=== PATIENT | male | born 1955 | race Caucasian/White ===

== ENCOUNTER 2017-07-17 10:27 | Emergency (ER) | payer OTHER ==
[~2017-07-17] VITALS: Ht 167.6 cm; Wt 99.7 kg
[2017-07-17 10:30] VITALS: TEMP 36.6; Ht 167.6 cm; Wt 99.7 kg
[2017-07-17] MEDS ORDERED: SODIUM CHLORIDE 0.9% 1000ML 1,000 ML IV STA (10:45)
[2017-07-17 11:11] VITALS: O2SAT 96
[2017-07-17 11:15] LABS: BASO % 0.3 %; BASO ABS # 0.02 K/uL (0-0.2); COMPLETE YES; EOS % 2.3 %; IG% 0.1 %; LYMPH % 16.7 %; LYMPH ABS # 1.15 K/uL (1.2-3.4); MEAN CELL VOLUME 80.8 fL (80-100); MEAN CORPUSCULAR HEMOGLOBIN 26.9 pg (25-34); MEAN CORPUSCULAR HGB CONC 33.3 g/dl (32-36); MEAN PLATELET VOLUME 9.4 fL (7.4-10.4); MONO % 3.9 %; NEUT % 76.7 %; PLATELET COUNT 256 K/uL (130-400); RED BLOOD COUNT 4.95 M/uL (4.7-6.1); WHITE BLOOD COUNT 6.87 K/uL (4.8-10.8)
[2017-07-17] MEDS ORDERED: MELO15TA4 PO (11:20)
[2017-07-17] MEDS ORDERED: LISI-788 PO (11:20)
[2017-07-17] MEDS ORDERED: TRAM-10 PO (11:20)
[2017-07-17] MEDS ORDERED: NAPR1CAP12 PO (11:20)
[2017-07-17] MEDS ORDERED: ACET-1256 PO (11:20)
[2017-07-17 11:34] LABS: ALT/SGPT 21 U/L (12-78); AST/SGOT 21 U/L (15-37); BLOOD UREA NITROGEN 14 mg/dl (7-18); BUN/CREATININE RATIO 16.5 (10-20); CALCIUM 9.3 mg/dl (8.5-10.1); CARBON DIOXIDE 27 mmol/L (21-32); CHLORIDE 105 mmol/L (98-107); CREATININE 0.84 mg/dl (0.60-1.40); GLUCOSE 94 mg/dl (70-99); POTASSIUM 3.8 mmol/L (3.5-5.1); SODIUM 139 mmol/L (136-145)
[2017-07-17 11:36] LABS: ALKALINE PHOSPHATASE 80 U/L (45-117)
[2017-07-17 12:01] LABS: PARTIAL THROMBOPLASTIN RATIO 1.1; PROTHROMBIN TIME (PATIENT) 10.4 SECONDS (9.0-12.0)
--- NOTE | 2017-07-17 12:48 | EMERGENCY ROOM VISIT NOTE ---
History Report prepared by Herminia: Anya Loera Under the Supervision of: Dr. Romeo Mcginnis M.D. First contact with patient: 10:43 Chief Complaint: RECTAL BLEEDING Stated Complaint: BLEEDING FROM RECTUM Nursing Triage Summary: pt had 1 episode of bloody BM 1/2 cup this am around 9 and then had another BM this upon arrival to the ED that was normal pt states that maybe it was a hemmroid and states he has a hx of hemmroids no sob no dizziness History of Present Illness The patient is a 62 year old white male with a past medical history of hypertension who presents to the ED with a cc of rectal bleeding beginning this morning. The patient was doing some heavy lifting at work. He felt like he needed to pass gas and when he did he states that it felt "wet." He went to the bathroom and saw that there was blood in his underwear. He then had a bowel movement and noticed right red blood with clots in his stool. Negative fevers, chills, urinary symptoms, recent trauma. The patient had a colonoscopy 3 years ago that was normal. He does not take any aspirin or blood thinners. He recently started taking Mobic 15mg daily. Source of History: patient Onset: this morning Position: other (rectum) Quality: other (bleeding) Timing: intermittent Modifying Factors (Worsening): defecation Associated Symptoms: No fevers, No chills, No urinary symptoms Note: Pt denies recent trauma. Review of Systems See HPI for pertinent positives and negatives. A total of ten systems were reviewed and were otherwise negative. Past Medical & Surgical Medical Problems: (1) Hypertension (2) Kidney stones Surgical Problems: (1) History of cholecystectomy Family History Cancer Diabetes mellitus Heart disease Hypertension Social History Smoking Status: Never Smoker Smokeless Tobacco Use: No Alcohol Use: none Drug Use: none Marital Status: Housing Status: lives with significant other Occupation Status: employed Current/Historical Medications Scheduled Acetaminophen (Tylenol), 1,000 MG PO QAM Lisinopril/Hctz (Zestoretic 20MG/25MG), 1 TAB PO DAILY Meloxicam (Mobic), 15 MG PO DAILY Naproxen Sodium (Aleve), 440 MG PO QAM Scheduled PRN Tramadol (Ultram), 50 MG PO Q4H PRN for Pain Allergies Coded Allergies: BEE STING (Unverified Allergy, Unknown, ., 07/17/17) Ibuprofen (Unverified Allergy, Unknown, ., 07/17/17) Physical Exam Vital Signs Date Time Temp Pulse Resp B/P (MAP) Pulse Ox O2 Delivery O2 Flow Rate FiO2 07/17/17 13:54 67 18 172/94 96 07/17/17 12:26 65 18 148/81 95 Room Air 07/17/17 11:13 69 07/17/17 11:11 96 Room Air 07/17/17 10:30 36.6 76 16 211/85 98 Room Air Physical Exam GENERAL: Awake, alert, well-appearing, NAD HENT: Normocephalic, atraumatic. EYES: Normal conjunctiva. Sclera non-icteric. NECK: Supple. No nuchal rigidity. FROM. RESPIRATORY: CTAB, no rhonchi, wheezing, crackles CARDIAC: RRR, no MRG ABDOMEN: Soft, NTND, BS+ RECTAL: External hemorrhoid, single bleeding hemorrhoid noted. NEHEMIAH performed. Prostate normal, no masses. MSK: No chest wall TTP, no LE edema NEURO: GCS 15, CN 2-12 intact, moves all 4s on command SKIN: No rash or jaundice noted. Medical Decision & Procedures Laboratory Results 07/17/17 11:05 Red Blood Count 4.95, Mean Corpuscular Volume 80.8, Mean Corpuscular Hemoglobin 26.9, Mean Corpuscular Hemoglobin Concent 33.3, Mean Platelet Volume 9.4, Neutrophils (%) (Auto) 76.7, Lymphocytes (%) (Auto) 16.7, Monocytes (%) (Auto) 3.9, Eosinophils (%) (Auto) 2.3, Basophils (%) (Auto) 0.3, Neutrophils # (Auto) 5.26, Lymphocytes # (Auto) 1.15, Monocytes # (Auto) 0.27, Eosinophils # (Auto) 0.16, Basophils # (Auto) 0.02 07/17/17 11:05 Test 07/17/17 11:05 07/17/17 11:35 White Blood Count 6.87 K/uL (4.8-10.8) Red Blood Count 4.95 M/uL (4.7-6.1) Hemoglobin 13.3 g/dL (14.0-18.0) Hematocrit 40.0 % (42-52) Mean Corpuscular Volume 80.8 fL (80-100) Mean Corpuscular Hemoglobin 26.9 pg (25-34) Mean Corpuscular Hemoglobin Concent 33.3 g/dl (32-36) Platelet Count 256 K/uL (130-400) Mean Platelet Volume 9.4 fL (7.4-10.4) Neutrophils (%) (Auto) 76.7 % Lymphocytes (%) (Auto) 16.7 % Monocytes (%) (Auto) 3.9 % Eosinophils (%) (Auto) 2.3 % Basophils (%) (Auto) 0.3 % Neutrophils # (Auto) 5.26 K/uL (1.4-6.5) Lymphocytes # (Auto) 1.15 K/uL (1.2-3.4) Monocytes # (Auto) 0.27 K/uL (0.11-0.59) Eosinophils # (Auto) 0.16 K/uL (0-0.5) Basophils # (Auto) 0.02 K/uL (0-0.2) RDW Standard Deviation 40.2 fL (36.4-46.3) RDW Coefficient of Variation 13.6 % (11.5-14.5) Immature Granulocyte % (Auto) 0.1 % Immature Granulocyte # (Auto) 0.01 K/uL (0.00-0.02) Anion Gap 7.0 mmol/L (3-11) Est Creatinine Clear Calc Drug Dose 103.4 ml/min Estimated GFR () 110.3 Estimated GFR (Non- 95.2 BUN/Creatinine Ratio 16.5 (10-20) Calcium Level 9.3 mg/dl (8.5-10.1) Total Bilirubin 0.3 mg/dl (0.2-1) Direct Bilirubin < 0.1 mg/dl (0-0.2) Aspartate Amino Transf (AST/SGOT) 21 U/L (15-37) Alanine Aminotransferase (ALT/SGPT) 21 U/L (12-78) Alkaline Phosphatase 80 U/L (45-117) Total Protein 8.0 gm/dl (6.4-8.2) Albumin 3.7 gm/dl (3.4-5.0) Lipase 103 U/L (73-393) Prothrombin Time 10.4 SECONDS (9.0-12.0) Prothromb Time International Ratio 1.0 (0.9-1.1) Activated Partial Thromboplast Time 29.8 SECONDS (21.0-31.0) Partial Thromboplastin Ratio 1.1 Laboratory results reviewed by me. Medications Administered Medications (Trade) Dose Ordered Sig/Krystyna Route Start Time Stop Time Status Last Admin Dose Admin Sodium Chloride 1,000 ml @ 999 mls/hr Q1H1M STAT IV 07/17/17 10:45 07/17/17 11:45 DC 07/17/17 11:11 999 MLS/HR ECG Indication: other Rate (beats per minute): 77 Rhythm: sinus with SA Findings: RBBB, T-wave inversion (lead 3), other (wide QRS) ED Course 1043: The patient was evaluated in room C9. A complete history and physical exam was performed. 1045: NSS 1000 ml @ 999 mls/hr IV 1253: I reevaluated the patient and he is trying to have a bowel movement. 1314: I performed a rectal examination at this time. I discussed the results and treatment plan with the patient. I answered all pertaining questions that he had. He expressed understanding and verbalized agreement. The patient will be discharged home. Medical Decision The patient is a 62 year old white male with a past medical history of hypertension who presents to the ED with a cc of rectal bleeding beginning this morning. Differential diagnosis: Etiologies such as diverticulosis, AVM, coagulopathy, colitis, inflammatory bowel disease, malignancy, Amada-Quiros tear, esophagitis, peptic ulcer disease , variceal bleed, gastritis, epistaxis, fissure, hemorrhoids, as well as others were entertained. Patient was seen and evaluated the bedside. Patient was concerned as he had a small clot passed or is most recent bowel movement. Patient denies any infectious symptoms. No history of prior ulcerative colitis or Crohn's. Patient does have a family history of colon cancer. Patient did have colonoscopy 3 years prior that was negative. Patient does not have any abdominal pain. Patient did have lab work that was completed. Patient's hemoglobin 13, normal correlation studies, normal platelet count. Upon further question patient does take Mobic daily. Patient was told refrain from doing this at this time. Patient did have an external bleeding hemorrhoid, no pain to palpation. NEHEMIAH completed. Mild blood present, no masses. Patient given f/u w/ GI and given trx for home. Patient told to return if SOB, high heart rate, etc. Given f/u, d/c, and return precautions d/c'ed to home. Medication Reconcilliation Current Medication List: was personally reviewed by me Blood Pressure Screening Patient's blood pressure: Elevated blood pressure Blood pressure disposition: Referred to PCP Impression Primary Impression: Rectal bleed Scribe Attestation The scribe's documentation has been prepared under my direction and personally reviewed by me in its entirety. I confirm that the note above accurately reflects all work, treatment, procedures, and medical decision making performed by me. Departure Information Dispostion Home / Self-Care Referrals Derian Guevara M.D. (PCP) Forms HOME CARE DOCUMENTATION FORM, IMPORTANT VISIT INFORMATION, WORK / SCHOOL INSTRUCTIONS Patient Instructions My [facility] Additional Instructions Please return to the emergency department if you have worsening or recurrent symptoms not amenable to at-home treatment. Please call for a follow-up appointment with her primary care physician. Please take your medications as prescribed. If you have other concerns and/or complaints please feel free to also call your primary care physician's office or return the ED for further evaluation, management, and treatment. You may take tylenol 1000mg every 6 hours as needed for pain. You have been examined and treated today on an emergency basis only. This is not a substitute for, or an effort to provide, complete comprehensive medical care. It is impossible to recognize and treat all injuries or illnesses in a single emergency department visit. It is therefore important that you follow up closely with [facility]. Call as soon as possible for an appointment. Thank you for your time and consideration. I look forward to speaking with you again soon. Please don't hesitate to call us if you have any questions. Topical ointments that include analgesics, such as mixed hydrocortisone/ lidocaine, are effective for relieving acute pain associated with hemorrhoids. Sitz baths Sitz baths are an intuitive topical treatment for acute flare-ups of hemorrhoids to reduce inflammation and edema and relax the sphincter muscles. Patients with significant hemorrhoid disease tend to have elevated sphincter tone. Manometric studies have confirmed that application of moist heat to the perianal area can lower the internal sphincter and anal canal pressures [31]. Sitz baths can relieve irritation and pruritus as well as spasm of the anal sphincter muscles. They should be used with warm, rather than cold, water two to three times per day [32]. A commercially available portable bowl allows for use at the workplace. Consider high fiber diet. Avoid straining when having a bowel movement.
[2017-07-17 13:54] VITALS: BP 172/94; PULSE 67; O2SAT 96
== END 2017-07-17 13:56 | disposition home or self-care (01) ==
LOC: C.EDB 10:29 → C.EDC 13:56
DX: K62.5 Hemorrhage of anus and rectum (principal); I10 Essential (primary) hypertension; Z87.442 Personal history of urinary calculi; Z80.9 Family history of malignant neoplasm, unspecified; Z83.3 Family history of diabetes mellitus; Z82.49 Family history of ischemic heart disease and other diseases of the circulatory system; Z79.899 Other long term (current) drug therapy

== ENCOUNTER 2017-07-19 08:54 | Inpatient (IN) | payer OTHER ==
[~2017-07-19] VITALS: Ht 168.9 cm; Wt 95.9 kg
[~2017-07-19 08:54] MED LIST: ACET-1256 PO; LISI-788 PO; MELO15TA4 PO; NAPR1CAP12 PO; TRAM-10 PO
[2017-07-19] MEDS ORDERED: SODIUM CHLORIDE 0.9% 1000ML 1,000 ML IV STA ×2 (09:17→10:44)
[2017-07-19 09:39] LABS: ISTAT CREATININE 0.8 mg/dl (0.6-1.3); ISTAT HEMOGLOBIN 14.6 g/dl (14.0-18.0); ISTAT IONIZED CALCIUM 1.19 mmol/l (1.12-1.32)
[2017-07-19 09:41] LABS: BASO % 0.2 %; BASO ABS # 0.03 K/uL (0-0.2); COMPLETE YES; EOS % 0.1 %; HEMATOCRIT 39.4 % (42-52); IG% 0.2 %; LYMPH % 10.1 %; LYMPH ABS # 1.44 K/uL (1.2-3.4); MEAN CELL VOLUME 80.2 fL (80-100); MEAN CORPUSCULAR HEMOGLOBIN 26.5 pg (25-34); MEAN PLATELET VOLUME 10.2 fL (7.4-10.4); MONO % 4.4 %; PLATELET COUNT 367 K/uL (130-400); RED BLOOD COUNT 4.91 M/uL (4.7-6.1); WHITE BLOOD COUNT 14.23 K/uL (4.8-10.8)
--- NOTE | 2017-07-19 09:41 | EMERGENCY ROOM VISIT NOTE ---
ED Visit Note First contact with patient: 09:00 I have seen and examined this patient with Tiffany Garay and generally agree with the treatment plan as discussed. Problem List Medical Problems: (1) Hypertension Status: Chronic (2) Kidney stones Status: Chronic Surgical Problems: (1) History of cholecystectomy Status: Resolved Current/Historical Medications Scheduled Lisinopril/Hctz (Zestoretic 20MG/25MG), 1 TAB PO DAILY Scheduled PRN Acetaminophen (Tylenol), 1,000 MG PO QAM PRN for Mild Pain Naproxen Sodium (Aleve), 440 MG PO QAM PRN for Mild Pain Tramadol (Ultram), 50 MG PO Q4H PRN for Pain Allergies Coded Allergies: BEE STING (Unverified Allergy, Unknown, ., 07/19/17) Ibuprofen (Unverified Allergy, Unknown, ., 07/19/17) Vital Signs Date Time Temp Pulse Resp B/P (MAP) Pulse Ox O2 Delivery O2 Flow Rate FiO2 07/19/17 09:30 80 18 65/38 98 Nasal Cannula 2.0 07/19/17 09:24 92 22 97 Nasal Cannula 2.0 07/19/17 09:18 95 20 81/48 98 Nasal Cannula 2.0 07/19/17 09:16 93 20 70/40 99 Room Air 07/19/17 09:15 95 07/19/17 09:06 36.6 109 20 140/73 97 Room Air 07/19/17 09:02 125 20 140/73 96 Room Air Laboratory Results Test 07/19/17 08:30 07/19/17 09:25 Bedside Hemoglobin 14.6 g/dl (14.0-18.0) Bedside Hematocrit 43 % (42-52) Bedside Sodium 143 mEq/L (135-144) Bedside Potassium 3.2 mEq/L (3.3-5.0) Bedside Chloride 103 mEq/L (101-112) Bedside Total CO2 26 mEq/l (24-31) Anion Gap 18.0 mmol/L (16-25) Bedside Blood Urea Nitrogen 14 mg/dl (7-18) Bedside Creatinine 0.8 mg/dl (0.6-1.3) Bedside Glucose (other) 125 mg/dl (70-99) Bedside Ionized Calcium (Eloina) 1.19 mmol/l (1.12-1.32) Medications Administered Medications (Trade) Dose Ordered Sig/Krystyna Route Start Time Stop Time Status Last Admin Dose Admin Sodium Chloride 1,000 ml @ 999 mls/hr Q1H1M STAT IV 07/19/17 09:17 07/19/17 10:17 07/19/17 09:26 999 MLS/HR Departure Information Referrals Derian Guevara M.D. (PCP) Patient Instructions [facility]
[2017-07-19 09:52] LABS: PARTIAL THROMBOPLASTIN RATIO 1.1; PROTHROMBIN TIME (PATIENT) 10.3 SECONDS (9.0-12.0)
[2017-07-19] MEDS ORDERED: OPTIRAY 320 IV PRN (10:00)
--- NOTE | 2017-07-19 10:00 | EMERGENCY ROOM VISIT NOTE ---
History First contact with patient: 09:00 Chief Complaint: RECTAL BLEEDING Stated Complaint: GI ASSESSMENT Nursing Triage Summary: here two days ago for rectal bleeding, returns today, 4-5 x bloody diarrhea "just runs out" this am, diaphoretic. History of Present Illness The patient is a 62 year old male who presents to the Emergency Room with complaints of rectal bleeding. The patient was seen here 2 days ago due to some bright red blood in the stool and states he had a normal workup at that time. He has had some bleeding since then and states he had increased bleeding since this morning. He states that beginning this morning, the blood has been "running out of him." He states that he is dizzy and sweaty at this time. He denies any recent fevers, abdominal pain, nausea/vomiting, chest pain or shortness of breath. He denies any cardiac history. The patient reports he has a history of a rectal fistula which was surgically repaired in [place] over 15 years ago. He states he takes a blood pressure medication. He denies any other medical problems. Review of Systems A complete 10 point review of systems was reviewed with the patient with pertinent positives and negatives as per history of present illness. All else were negative. Past Medical/Surgical History Medical Problems: (1) Diverticulosis (2) HTN (hypertension) Surgical Problems: (1) H/O inguinal hernia repair (2) H/O sinus surgery (3) History of cholecystectomy (4) History of tonsillectomy Family History Cancer Diabetes mellitus Heart disease Hypertension Social History Smoking Status: Unknown if Ever Smoked Alcohol Use: none Drug Use: none Marital Status: Housing Status: lives with significant other Occupation Status: employed Current/Historical Medications Scheduled Acetaminophen (Tylenol), 1,000 MG PO QAM Cetirizine (Zyrtec), 10 MG PO DAILY Lisinopril/Hctz (Zestoretic 20MG/25MG), 1 TAB PO DAILY Scheduled PRN Tramadol (Ultram), 50 MG PO Q4H PRN for Pain Physical Exam Vital Signs Date Time Temp Pulse Resp B/P (MAP) Pulse Ox O2 Delivery O2 Flow Rate FiO2 07/19/17 11:31 68 110/74 07/19/17 11:02 68 112/60 07/19/17 10:46 66 109/62 100 Nasal Cannula 2.0 07/19/17 10:30 65 20 99/58 100 2.0 07/19/17 10:11 65 22 102/58 100 Nasal Cannula 2.0 07/19/17 09:30 80 18 65/38 98 Nasal Cannula 2.0 07/19/17 09:24 92 22 97 Nasal Cannula 2.0 07/19/17 09:18 95 20 81/48 98 Nasal Cannula 2.0 07/19/17 09:16 93 20 70/40 99 Room Air 07/19/17 09:15 95 07/19/17 09:06 36.6 109 20 140/73 97 Room Air 07/19/17 09:02 125 20 140/73 96 Room Air Physical Exam VITALS: Vitals are noted on the nurse's note and reviewed by myself. Vital signs stable. GENERAL: This is a 62-year-old male, pale, diaphoretic. EYES: Pupils equal round and reactive to light and accommodation. MOUTH: Mucous membranes moist. HEART: Regular rate and rhythm without murmurs gallops or rubs. LUNGS: Clear to auscultation bilaterally without wheezes, rales or rhonchi. No retractions or accessory muscle use. ABDOMEN: Soft, non-tender to palpation. NEURO: Patient was alert and oriented to person place and time. Medical Decision & Procedures ER Provider Diagnostic Interpretation: ABDOMEN AND PELVIS CTA WITH IV CONTRAST FINDINGS: A 2 cm right breast subareolar soft tissue nodule. Mild interstitial thickening at the lung bases. No pneumoperitoneum. No pneumatosis. No pneumoperitoneum. Tiny fat-containing left inguinal hernia. No suspicious lytic or blastic osseous lesions. Cholecystectomy. The spleen, adrenal glands, pancreas, left kidney are unremarkable. There are few subcentimeter hypodense lesions within the right kidney which are too small to characterize. There is a 4 mm hypodense lesion within the right hepatic lobe which is also too small to characterize. A single mildly enlarged right hilar lymph node which is partially imaged. This measures 1 cm. There is also a mildly enlarged distal paraesophageal lymph node measuring 1.4 cm. No retroperitoneal lymphadenopathy. The bladder is within normal limits. Colonic diverticulosis. There is no complaint diverticula at the proximal descending colon with surrounding fat stranding. This is consistent with acute diverticulitis. No perforation or abscess identified. Normal appendix. Normal caliber abdominal aorta with no evidence for dissection. The mesenteric and renal arteries are widely patent. Focal narrowing of approximately 50% at the origin of the celiac artery. IMPRESSION: 1. Normal abdominal aorta. No evidence for dissection or aneurysm. 2. Approximately 50% focal narrowing at the origin of the celiac artery. 3. Acute proximal descending colon diverticulitis. No evidence for perforation or abscess. 4. A 2 cm right breast subareolar nodule. This likely represents gynecomastia. However, follow-up mammogram/ultrasound at a dedicated breast care center is recommended for confirmation. 5. Mildly enlarged lymph nodes within the chest as described above. Recommend follow-up nonemergent dedicated chest CT for further evaluation. Laboratory Results 07/19/17 08:30 Red Blood Count 4.91, Mean Corpuscular Volume 80.2, Mean Corpuscular Hemoglobin 26.5, Mean Corpuscular Hemoglobin Concent 33.0, Mean Platelet Volume 10.2, Neutrophils (%) (Auto) 85.0, Lymphocytes (%) (Auto) 10.1, Monocytes (%) (Auto) 4.4, Eosinophils (%) (Auto) 0.1, Basophils (%) (Auto) 0.2, Neutrophils # (Auto) 12.09, Lymphocytes # (Auto) 1.44, Monocytes # (Auto) 0.62, Eosinophils # (Auto) 0.02, Basophils # (Auto) 0.03 07/19/17 08:30 Test 07/19/17 08:30 07/19/17 09:25 07/19/17 11:28 White Blood Count 14.23 K/uL (4.8-10.8) Red Blood Count 4.91 M/uL (4.7-6.1) Hemoglobin 13.0 g/dL (14.0-18.0) Hematocrit 39.4 % (42-52) Mean Corpuscular Volume 80.2 fL (80-100) Mean Corpuscular Hemoglobin 26.5 pg (25-34) Mean Corpuscular Hemoglobin Concent 33.0 g/dl (32-36) Platelet Count 367 K/uL (130-400) Mean Platelet Volume 10.2 fL (7.4-10.4) Neutrophils (%) (Auto) 85.0 % Lymphocytes (%) (Auto) 10.1 % Monocytes (%) (Auto) 4.4 % Eosinophils (%) (Auto) 0.1 % Basophils (%) (Auto) 0.2 % Neutrophils # (Auto) 12.09 K/uL (1.4-6.5) Lymphocytes # (Auto) 1.44 K/uL (1.2-3.4) Monocytes # (Auto) 0.62 K/uL (0.11-0.59) Eosinophils # (Auto) 0.02 K/uL (0-0.5) Basophils # (Auto) 0.03 K/uL (0-0.2) RDW Standard Deviation 40.3 fL (36.4-46.3) RDW Coefficient of Variation 13.7 % (11.5-14.5) Immature Granulocyte % (Auto) 0.2 % Immature Granulocyte # (Auto) 0.03 K/uL (0.00-0.02) Prothrombin Time 10.3 SECONDS (9.0-12.0) Prothromb Time International Ratio 1.0 (0.9-1.1) Activated Partial Thromboplast Time 28.8 SECONDS (21.0-31.0) Partial Thromboplastin Ratio 1.1 Est Creatinine Clear Calc Drug Dose 92.3 ml/min Estimated GFR () 104.4 Estimated GFR (Non- 90.1 BUN/Creatinine Ratio 14.8 (10-20) Calcium Level 9.7 mg/dl (8.5-10.1) Magnesium Level 1.8 mg/dl (1.8-2.4) Total Bilirubin 0.4 mg/dl (0.2-1) Aspartate Amino Transf (AST/SGOT) 23 U/L (15-37) Alanine Aminotransferase (ALT/SGPT) 21 U/L (12-78) Alkaline Phosphatase 82 U/L (45-117) Troponin I < 0.015 ng/ml (0-0.045) Total Protein 8.5 gm/dl (6.4-8.2) Albumin 3.9 gm/dl (3.4-5.0) Globulin 4.5 gm/dl (2.5-4.0) Albumin/Globulin Ratio 0.9 (0.9-2) Bedside Hemoglobin 14.6 g/dl (14.0-18.0) Bedside Hematocrit 43 % (42-52) Bedside Sodium 143 mEq/L (135-144) Bedside Potassium 3.2 mEq/L (3.3-5.0) Bedside Chloride 103 mEq/L (101-112) Bedside Total CO2 26 mEq/l (24-31) Anion Gap 18.0 mmol/L (16-25) Bedside Blood Urea Nitrogen 14 mg/dl (7-18) Bedside Creatinine 0.8 mg/dl (0.6-1.3) Bedside Glucose (other) 125 mg/dl (70-99) Bedside Ionized Calcium (Eloina) 1.19 mmol/l (1.12-1.32) Bedside Lactic Acid Venous 2.25 mmol/L (0.90-1.70) Medications Administered Medications (Trade) Dose Ordered Sig/Krystyna Route Start Time Stop Time Status Last Admin Dose Admin Sodium Chloride 1,000 ml @ 999 mls/hr Q1H1M STAT IV 07/19/17 09:17 07/19/17 10:17 DC 07/19/17 09:26 999 MLS/HR Sodium Chloride 1,000 ml @ 999 mls/hr Q1H1M STAT IV 07/19/17 10:44 07/19/17 11:44 DC 07/19/17 10:48 999 MLS/HR Piperacillin Sod/ Tazobactam Sod (Zosyn Iv) 4.5 gm NOW STAT IV 07/19/17 10:44 07/19/17 10:47 DC 07/19/17 12:13 4.5 GM Daptomycin 600 mg/ Sodium Chloride 62 ml @ 100 mls/hr NOW STAT IV 07/19/17 10:44 07/19/17 11:21 DC 07/19/17 11:27 100 MLS/HR ECG Rate (beats per minute): 119 Rhythm: sinus tachycardia Findings: RBBB Comparison ECG Date: rate has increased ED Course The patient was evaluated as above. Labs were drawn and IV access was obtained. Blood pressure was rechecked and patient was found to be hypotensive. He was hydrated with 1 L normal saline solution. He remained hypotensive. Patient was sent for CTA of the abdomen and pelvis to rule out ruptured AAA. On return from CT scan, the patient's blood pressure has stabilized. He was reassessed and states he is feeling much better. Case was discussed with the [facility] hospitalist, Sujatha Donovan. They agreed to evaluate the patient for admission. Medical Decision Differential diagnosis includes unstable GI bleed, diverticulitis, AVM, fistula , malignancy, sepsis, ruptured AAA, among others. The patient is a 62-year-old male who presents today complaining of rectal bleeding. Patient does not have any complaints of pain. He denies any associated symptoms except for diaphoresis. He was tachycardic and hypotension on initial presentation. I initially thought this may be due to blood loss, however patient was found to have a stable hemoglobin. Patient was treated with aggressive IV fluids and blood pressure was responsive to this and stabilized. Labs revealed a leukocytosis of 14,000. CT scan showed evidence of diverticulitis and patient's hypotension may be secondary to sepsis. Blood cultures were drawn and patient was given initial doses of Zosyn and daptomycin. He will be admitted to the [facility] service for further evaluation and care. The patient was independently evaluated by Dr. Conteh, ED attending physician , who agreed with my assessment and treatment plan. Medication Reconcilliation Current Medication List: was personally reviewed by me Blood Pressure Screening Patient's blood pressure: Low blood pressure Impression Primary Impression: Diverticulitis Additional Impression: Hypotension Critical Care I have personally spent greater than 35 minutes of critical care time in the direct management of this patient. This includes bedside care, interpretation of diagnostic studies, and testing, discussion with consultants, patient, and family members, and other required patient management activities. This 35 minutes is in excess of all separately billable procedures. Departure Information Referrals Derian Guevara M.D. (PCP) Patient Instructions My [facility] Problem Qualifiers
[2017-07-19 10:03] LABS: BUN/CREATININE RATIO 14.8 (10-20); CREATININE 0.92 mg/dl (0.60-1.40); POTASSIUM 3.2 mmol/L (3.5-5.1)
[2017-07-19 10:10] LABS: ALB/GLOB RATIO 0.9 (0.9-2); CALCIUM 9.7 mg/dl (8.5-10.1)
--- NOTE | 2017-07-19 10:41 | DIAGNOSTIC IMAGING REPORT ---
ABDOMEN AND PELVIS CTA WITH IV CONTRAST CT DOSE: 987.47 mGycm HISTORY: Midabdominal pain. Pt rectal bleed TECHNIQUE: Multiaxial CT images of the abdomen and pelvis were performed following the use of intravenous contrast to evaluate the aorta. Maximal intensity projection images were also obtained. A dose lowering technique was utilized adhering to the principles of ALARA. COMPARISON STUDY: None. FINDINGS: A 2 cm right breast subareolar soft tissue nodule. Mild interstitial thickening at the lung bases. No pneumoperitoneum. No pneumatosis. No pneumoperitoneum. Tiny fat-containing left inguinal hernia. No suspicious lytic or blastic osseous lesions. Cholecystectomy. The spleen, adrenal glands, pancreas, left kidney are unremarkable. There are few subcentimeter hypodense lesions within the right kidney which are too small to characterize. There is a 4 mm hypodense lesion within the right hepatic lobe which is also too small to characterize. A single mildly enlarged right hilar lymph node which is partially imaged. This measures 1 cm. There is also a mildly enlarged distal paraesophageal lymph node measuring 1.4 cm. No retroperitoneal lymphadenopathy. The bladder is within normal limits. Colonic diverticulosis. There is no complaint diverticula at the proximal descending colon with surrounding fat stranding. This is consistent with acute diverticulitis. No perforation or abscess identified. Normal appendix. Normal caliber abdominal aorta with no evidence for dissection. The mesenteric and renal arteries are widely patent. Focal narrowing of approximately 50% at the origin of the celiac artery. IMPRESSION: 1. Normal abdominal aorta. No evidence for dissection or aneurysm. 2. Approximately 50% focal narrowing at the origin of the celiac artery. 3. Acute proximal descending colon diverticulitis. No evidence for perforation or abscess. 4. A 2 cm right breast subareolar nodule. This likely represents gynecomastia. However, follow-up mammogram/ultrasound at a dedicated breast care center is recommended for confirmation. 5. Mildly enlarged lymph nodes within the chest as described above. Recommend follow-up nonemergent dedicated chest CT for further evaluation. Electronically signed by: Deepak Bean M.D. 07/19/2017 10:40 AM Dictated Date/Time: 07/19/2017 10:27 AM
[2017-07-19] MEDS ORDERED: DAPTOmycin IV 600 MG in SODIUM CHLORIDE 0.9% 50ML 50 ML IV STA (10:44)
[2017-07-19] MEDS ORDERED: PIPERACILLIN/TAZOBACTAM 4.5 GM/100ML D5W IV STA (10:44)
[2017-07-19] MEDS ORDERED: CETI10TA84 PO (11:59)
[2017-07-19] MEDS ORDERED: ACETAMINOPHEN 325 MG TAB PO PRN (12:00)
[2017-07-19] MEDS ORDERED: ONDANSETRON INJ 2 MG/ML 2 ML VIAL IV PRN (12:00)
[2017-07-19] MEDS ORDERED: PIPERACILL/TAZOBAC CONSULT ACTIVE SCH (13:00)
--- NOTE | 2017-07-19 13:04 | Gastrointestinal Consultation ---
Gastrointestinal Consultation Date of Consultation: Jul 19, 2017 Attending Physician: Sujatha Donovan NP; [facility] Consulting Physician: Dr. Sexton Reason for Consultation: Rectal Bleed History of Present Illness Patient is a 62 year old male patient of Dr. Guevara with a hx of anxiety, GERD, HTN and an anal fistula S/[place] [facility] [place] . He presented to the ED 2 days ago for rectal bleeding thought to be hemorrhoidal and was discharged. He returned again this morning with report of several episodes of rectal bleeding this morning. GI is consulted for rectal bleeding. He tells me that, in general, he has not had abdominal pain. However, he was awakened by abdominal pain this morning at 2AM. The pain was bilateral, lower abdomen cramping discomfort. He was able to fall asleep again. When he awakened at 3:30 this morning (his usual time as he works very early every morning), he passed a small amt of bright red blood rectally and again around 6:30 at work. He returned home and around 7Am this morning at home, he passed a large volume liquid BM consisting of bright blood and clots. At that time, he had profuse sweating and summoned EMS. He passed blood again twice in route and 6-7 times since arrival in the ED. On arrival, he was hypotensive, but Hb was normal at 13.0 (down from 13.9 on ). BUN remains normal as well. CT is suggestive of sigmoid diverticulitis. The pt tells me that he underwent colonoscopy several yrs ago in [place] but I am unable to find a record of that. Past Medical/Surgical History Medical Problems: (1) Rectal bleed Status: Acute Past Medical History: 1. HTN 2. Anxiety 3. Anal fistula 4. IBS 5. Chronic sinusitis 6. GERD Past Surgical History: 1. Lap Cholecystectomy 2. L inguinal hernia repair 2012 3. Pt tells me he underwent colonoscopy by Dr. Case in [place] 5-6 yrs ago. 4. Repair [place] [facility] [place] Family History Cancer Diabetes mellitus Heart disease Hypertension Social History Smoking Status: Unknown if Ever Smoked Alcohol Use: none Drug Use: none Marital Status: Housing Status: lives with significant other Occupation Status: employed Allergies Coded Allergies: BEE STING (Unverified Allergy, Unknown, ., 07/19/17) Ibuprofen (Unverified Allergy, Unknown, ., 07/19/17) Current Medications Home Meds and Scripts Medications Dose Route/Sig Max Daily Dose Days Date Category Zyrtec (Cetirizine HCl) 10 Mg Tab 10 Mg PO DAILY 07/19/17 Reported Ultram (Tramadol HCl) 50 Mg Tab 50 Mg PO Q4H PRN 07/17/17 Reported Tylenol (Acetaminophen) 500 Mg Tab 1,000 Mg PO QAM 07/17/17 Reported Zestoretic 20MG/25MG (HCTZ/Lisinopril) Tab 1 Tab PO DAILY 07/17/17 Reported Review of Systems Constitutional: + sweats, No fever, No chills, No weight loss, No weakness Eyes: No eye pain, No redness ENT: No sore throat, No trouble swallowing, No pain on swallowing Respiratory: No cough, No wheezing, No shortness of breath, No dyspnea on exertion Cardiac: No chest pain, No edema, No palpitations Abdomen: + see HPI, + pain, + diarrhea, + GI bleeding, No nausea, No vomiting, No constipation, No acolic stools, No jaundice, No dark urine Male : No dysuria Neuro: No memory loss, No weakness, No numbness/tingling, No vertigo, No balance problems Psych: No depression symptoms, No anxiety, No insomnia Heme: No abnormal bleeding/bruising, No night sweats Endo: No fatigue, No excessive thirst, No excessive urination Skin: No rash, No itch, No new/changing skin lesions, No jaundice Physical Exam Date Time Temp Pulse Resp B/P (MAP) Pulse Ox O2 Delivery O2 Flow Rate FiO2 07/19/17 12:01 69 07/19/17 11:57 71 156/82 98 Room Air 07/19/17 11:31 68 110/74 07/19/17 11:02 68 112/60 07/19/17 10:46 66 109/62 100 Nasal Cannula 2.0 07/19/17 10:30 65 20 99/58 100 2.0 07/19/17 10:11 65 22 102/58 100 Nasal Cannula 2.0 07/19/17 09:30 80 18 65/38 98 Nasal Cannula 2.0 07/19/17 09:24 92 22 97 Nasal Cannula 2.0 07/19/17 09:18 95 20 81/48 98 Nasal Cannula 2.0 07/19/17 09:16 93 20 70/40 99 Room Air 07/19/17 09:15 95 07/19/17 09:06 36.6 109 20 140/73 97 Room Air 07/19/17 09:02 125 20 140/73 96 Room Air General Appearance: no apparent distress Eyes: normal inspection, EOMI Neck: supple, no adenopathy, thyroid normal Respiratory/Chest: chest non-tender, lungs clear, normal breath sounds, no accessory muscle use Cardiovascular: regular rate, rhythm, no JVD, no murmur Abdomen: normal bowel sounds, soft, no organomegaly, + tenderness (mild, bilateral lower abdomen tenderness) Extremities: normal inspection, no pedal edema, normal capillary refill Neurologic/Psych: alert, normal mood/affect, oriented x 3 Skin: normal color, no jaundice, warm/dry, no rash Laboratory Results Last 24 Hours Test 07/19/17 08:30 07/19/17 09:25 07/19/17 11:28 07/19/17 11:53 White Blood Count 14.23 K/uL Red Blood Count 4.91 M/uL Hemoglobin 13.0 g/dL Hematocrit 39.4 % Mean Corpuscular Volume 80.2 fL Mean Corpuscular Hemoglobin 26.5 pg Mean Corpuscular Hemoglobin Concent 33.0 g/dl Platelet Count 367 K/uL Mean Platelet Volume 10.2 fL Neutrophils (%) (Auto) 85.0 % Lymphocytes (%) (Auto) 10.1 % Monocytes (%) (Auto) 4.4 % Eosinophils (%) (Auto) 0.1 % Basophils (%) (Auto) 0.2 % Neutrophils # (Auto) 12.09 K/uL Lymphocytes # (Auto) 1.44 K/uL Monocytes # (Auto) 0.62 K/uL Eosinophils # (Auto) 0.02 K/uL Basophils # (Auto) 0.03 K/uL RDW Standard Deviation 40.3 fL RDW Coefficient of Variation 13.7 % Immature Granulocyte % (Auto) 0.2 % Immature Granulocyte # (Auto) 0.03 K/uL Prothrombin Time 10.3 SECONDS Prothromb Time International Ratio 1.0 Activated Partial Thromboplast Time 28.8 SECONDS Partial Thromboplastin Ratio 1.1 Sodium Level 141 mmol/L Potassium Level 3.2 mmol/L Chloride Level 105 mmol/L Carbon Dioxide Level 27 mmol/L Anion Gap 9.0 mmol/L 18.0 mmol/L Blood Urea Nitrogen 14 mg/dl Creatinine 0.92 mg/dl Est Creatinine Clear Calc Drug Dose 92.3 ml/min Estimated GFR () 104.4 Estimated GFR (Non- 90.1 BUN/Creatinine Ratio 14.8 Random Glucose 118 mg/dl Calcium Level 9.7 mg/dl Total Bilirubin 0.4 mg/dl Aspartate Amino Transf (AST/SGOT) 23 U/L Alanine Aminotransferase (ALT/SGPT) 21 U/L Alkaline Phosphatase 82 U/L Troponin I < 0.015 ng/ml Total Protein 8.5 gm/dl Albumin 3.9 gm/dl Globulin 4.5 gm/dl Albumin/Globulin Ratio 0.9 Bedside Hemoglobin 14.6 g/dl Bedside Hematocrit 43 % Bedside Sodium 143 mEq/L Bedside Potassium 3.2 mEq/L Bedside Chloride 103 mEq/L Bedside Total CO2 26 mEq/l Bedside Blood Urea Nitrogen 14 mg/dl Bedside Creatinine 0.8 mg/dl Bedside Glucose (other) 125 mg/dl Bedside Ionized Calcium (Eloina) 1.19 mmol/l Bedside Lactic Acid Venous 2.25 mmol/L Impression Patient is a 62 year old male with rectal bleeding with mild associated abdominal cramping pain in the setting of a hx of diverticulitis. CT suggests diverticulitis, though his pain is not very severe so I suspect just a diverticular bleed. Plan 1. Agree with antibiotics for coverage of diverticulitis. 2. Clear liquids po. 3. No plan for endoscopy during this hospitalization. 4. Will plan for OP colonoscopy in 6-8 weeks. I have personally seen and examined the patient with JOAQUIM Ochoa on 09/2017. Her note reflects my exam and findings. I agree with her impression and plan. Certainly presents like diverticular bleeding however, patient doers use daily NSAID and this could be an upper GI bleed. Follow H/H and clinical course. Patient should be on BID IV PPI and kept on clears. Louie Sexton M.D.
[2017-07-19 13:11] VITALS: BP 135/78; PULSE 71; TEMP 36.8; O2SAT 95; Ht 168.9 cm; Wt 95.9 kg
[2017-07-19] MEDS: SODIUM CHLORIDE 0.9% 1000ML 1,000 ML IV SCH ×2 (13:31→21:41)
[2017-07-19] MEDS: POTASSIUM CHLR 10 MEQ / WTR 10 MEQ in PREMIXED WATER 100 ML IV SCH ×4 (13:34→17:58)
--- NOTE | 2017-07-19 14:41 | History and Physical ---
History & Physical Date & Time of Service: Jul 19, 2017 ~ 11:30 Chief Complaint: Rectal Bleeding Primary Care Physician: Derian Guevara M.D. History of Present Illness 62 year old male who presents to the ED with rectal bleeding. Patient was seen in the ED for similar complaints 2 days ago. He reports that at that time, he was at work and felt something wet in his pants. When he went to the bathroom, he had bright red blood with some clots in his underwear. He was seen in the ED , was found to have a normal hgb and no further bleeding so he was discharged home with instructions to hold his Mobic and Aleve. Last night patient reports an additional small amount of bleeding with clots. This morning patient reports the bleeding acutely worsened. He reports multiple episodes of BRBPR since this morning. Blood continues to be bright red with clots. Patient reports some mild intermittent lower abdominal pain since then. He is currently pain free. he denies nausea and vomiting. He reports feeling lightheaded and dizzy initially when he arrived to the ED however that has resolved. He denies any syncopal events. No chest pain or shortness of breath. He denies fever and chills. No urinary symptoms. Upon arrival to the ED, patient was tachycardic and hypotensive. BPs improved with IVF. CT abd/pelvis is showing acute diverticulitis. Hgb is stable at 13.0. He was given IVF, IV Zosyn, and IV Dapto. Past Medical/Surgical History Medical Problems: (1) Diverticulosis Status: Chronic (2) HTN (hypertension) Status: Chronic Surgical Problems: (1) H/O inguinal hernia repair Status: Chronic (2) H/O sinus surgery Status: Chronic (3) History of cholecystectomy Status: Chronic (4) History of tonsillectomy Status: Chronic Family History FH: colon cancer FATHER FH: esophageal cancer BROTHER Social History Smoking Status: Never Smoker Alcohol Use: none Marital Status: Housing status: lives with family Immunizations History of Tetanus Vaccine?: Yes Tetanus Immunization Date: Oct 05, 2008 Allergies Coded Allergies: BEE STING (Unverified Allergy, Unknown, ., 07/19/17) Ibuprofen (Unverified Allergy, Unknown, ., 07/19/17) Home Medications Scheduled Acetaminophen (Tylenol), 1,000 MG PO QAM Cetirizine (Zyrtec), 10 MG PO DAILY Lisinopril/Hctz (Zestoretic 20MG/25MG), 1 TAB PO DAILY Scheduled PRN Tramadol (Ultram), 50 MG PO Q4H PRN for Pain Review of Systems ROS per HPI, all other systems reviewed and negative Physical Exam Vital Signs Date Time Temp Pulse Resp B/P (MAP) Pulse Ox O2 Delivery O2 Flow Rate FiO2 07/19/17 12:01 69 07/19/17 11:57 71 156/82 98 Room Air 07/19/17 11:31 68 110/74 07/19/17 11:02 68 112/60 07/19/17 10:46 66 109/62 100 Nasal Cannula 2.0 07/19/17 10:30 65 20 99/58 100 2.0 07/19/17 10:11 65 22 102/58 100 Nasal Cannula 2.0 07/19/17 09:30 80 18 65/38 98 Nasal Cannula 2.0 07/19/17 09:24 92 22 97 Nasal Cannula 2.0 07/19/17 09:18 95 20 81/48 98 Nasal Cannula 2.0 07/19/17 09:16 93 20 70/40 99 Room Air 07/19/17 09:15 95 07/19/17 09:06 36.6 109 20 140/73 97 Room Air 07/19/17 09:02 125 20 140/73 96 Room Air General Appearance: WD/WN, no apparent distress Head: normocephalic, atraumatic Eyes: normal inspection, EOMI, sclerae normal ENT: hearing grossly normal, + pertinent finding (mucous membranes moist) Neck: supple, no JVD, trachea midline Respiratory/Chest: lungs clear, normal breath sounds, no respiratory distress Cardiovascular: regular rate, rhythm, no edema, normal peripheral pulses Abdomen/GI: normal bowel sounds, non tender, soft, no organomegaly Extremities/Musculoskelatal: normal inspection, no calf tenderness, normal capillary refill Neurologic/Psych: no motor/sensory deficits, alert, oriented x 3 Skin: normal color, warm/dry Diagnostics Laboratory Results Results Past 24 Hours Test 07/19/17 08:30 07/19/17 09:25 07/19/17 11:28 07/19/17 11:53 Range/Units White Blood Count 14.23 4.8-10.8 K/uL Red Blood Count 4.91 4.7-6.1 M/uL Hemoglobin 13.0 14.0-18.0 g/dL Hematocrit 39.4 42-52 % Mean Corpuscular Volume 80.2 80-100 fL Mean Corpuscular Hemoglobin 26.5 25-34 pg Mean Corpuscular Hemoglobin Concent 33.0 32-36 g/dl Platelet Count 367 130-400 K/uL Mean Platelet Volume 10.2 7.4-10.4 fL Neutrophils (%) (Auto) 85.0 % Lymphocytes (%) (Auto) 10.1 % Monocytes (%) (Auto) 4.4 % Eosinophils (%) (Auto) 0.1 % Basophils (%) (Auto) 0.2 % Neutrophils # (Auto) 12.09 1.4-6.5 K/uL Lymphocytes # (Auto) 1.44 1.2-3.4 K/uL Monocytes # (Auto) 0.62 0.11-0.59 K/uL Eosinophils # (Auto) 0.02 0-0.5 K/uL Basophils # (Auto) 0.03 0-0.2 K/uL RDW Standard Deviation 40.3 36.4-46.3 fL RDW Coefficient of Variation 13.7 11.5-14.5 % Immature Granulocyte % (Auto) 0.2 % Immature Granulocyte # (Auto) 0.03 0.00-0.02 K/uL Prothrombin Time 10.3 9.0-12.0 SECONDS Prothromb Time International Ratio 1.0 0.9-1.1 Activated Partial Thromboplast Time 28.8 21.0-31.0 SECONDS Partial Thromboplastin Ratio 1.1 Sodium Level 141 136-145 mmol/L Potassium Level 3.2 3.5-5.1 mmol/L Chloride Level 105 98-107 mmol/L Carbon Dioxide Level 27 21-32 mmol/L Anion Gap 9.0 18.0 16-25 mmol/L Blood Urea Nitrogen 14 7-18 mg/dl Creatinine 0.92 0.60-1.40 mg/dl Est Creatinine Clear Calc Drug Dose 92.3 ml/min Estimated GFR () 104.4 Estimated GFR (Non- 90.1 BUN/Creatinine Ratio 14.8 10-20 Random Glucose 118 70-99 mg/dl Calcium Level 9.7 8.5-10.1 mg/dl Total Bilirubin 0.4 0.2-1 mg/dl Aspartate Amino Transf (AST/SGOT) 23 15-37 U/L Alanine Aminotransferase (ALT/SGPT) 21 12-78 U/L Alkaline Phosphatase 82 45-117 U/L Troponin I < 0.015 0-0.045 ng/ml Total Protein 8.5 6.4-8.2 gm/dl Albumin 3.9 3.4-5.0 gm/dl Globulin 4.5 2.5-4.0 gm/dl Albumin/Globulin Ratio 0.9 0.9-2 Bedside Hemoglobin 14.6 14.0-18.0 g/dl Bedside Hematocrit 43 42-52 % Bedside Sodium 143 135-144 mEq/L Bedside Potassium 3.2 3.3-5.0 mEq/L Bedside Chloride 103 101-112 mEq/L Bedside Total CO2 26 24-31 mEq/l Bedside Blood Urea Nitrogen 14 7-18 mg/dl Bedside Creatinine 0.8 0.6-1.3 mg/dl Bedside Glucose (other) 125 70-99 mg/dl Bedside Ionized Calcium (Eloina) 1.19 1.12-1.32 mmol/l Bedside Lactic Acid Venous 2.25 0.90-1.70 mmol/L Test 07/19/17 12:21 Range/Units Microbiology Results 07/19/17 Blood Culture, Received Pending 07/19/17 Blood Culture, Received Pending Diagnostic Radiology CT ABD/PELVIS IMPRESSION: 1. Normal abdominal aorta. No evidence for dissection or aneurysm. 2. Approximately 50% focal narrowing at the origin of the celiac artery. 3. Acute proximal descending colon diverticulitis. No evidence for perforation or abscess. 4. A 2 cm right breast subareolar nodule. This likely represents gynecomastia. However, follow-up mammogram/ultrasound at a dedicated breast care center is recommended for confirmation. 5. Mildly enlarged lymph nodes within the chest as described above. Recommend follow-up nonemergent dedicated chest CT for further evaluation. Impression Assessment and Plan LOWER GI BLEED - admit to tele - patient presenting with several episodes of large amounts of BRBPR; in the ED , initially was tachycardic and hypotensive which improved with IVF - patient reports history of colonoscopy at [facility] and was told he had diverticulosis; record unavailable, will try to obtain - hgb currently stable at 13.0 - will check serial H/Hs and transfuse PRN - suspect diverticular bleed - NPO until seen by GI - case discussed with JOAQUIM Ochoa ACUTE DIVERTICULITIS - acute descending colon diverticulitis noted on CT scan - WBC 14K; suspect tachycardia and hypotension on presentation were due to volume loss and not sepsis - POC lactic acid elevated - will recheck serum - s/p Dapto and Zosyn in the ED; will continue with Zosyn only for now - check stool studies BREAST NODULE, ENLARGED LYMPH NODES - right breast nodule and enlarged lymph nodes in the chest noted on CT abd/ pelvis - breast nodule will need f/u US and enlarged lymph nodes will need follow up dedicated CT chest HTN - presented with hypotension - will hold lisinopril/HCTZ for now DVT PROPHYLAXIS - SCDs due to lower GI Bleed DISPO - In my clinical judgment this beneficiary meets acute admission criteria, established by [facility], that includes being hospitalized through two midnights. VTE Prophylaxis VTE Risk Assessment Done? Y/N: Yes Risk Level: Moderate Given or contraindicated: SCD's Note ATTENDING ADDENDUM Record reviewed. Patient interviewed and examined in ED. Care coordinated with JOAQUIM Lou. Please refer to her documentation for patient's history. Briefly, 62 YO male with hypertension. 2 episodes of limited rectal bleeding 2 days prior to admission. Seen in ED and discharged to home. Multiple episodes of rectal bleeding this morning. Returned to ED for evaluation; hypotensive upon arrival. Hemodynamically stable after fluid resuscitation. Mild lower abdominal pain. EXAM: General- no acute distress at time of my assessment. VS- as noted HEENT- anicteric Neck- no JVD Lungs- clear Heart- RRR Abdomen- quiet bowel sounds, soft, mild lower abdominal tenderness Extremities- no pretibial edema or calf tenderness Neuro- alert DATA: Hgb 13. Plts 367,000. INR 1.0, PTT 28.8. Other lab studies as noted. CT ABDOMEN & PELVIS IMPRESSION: 1. Normal abdominal aorta. No evidence for dissection or aneurysm. 2. Approximately 50% focal narrowing at the origin of the celiac artery. 3. Acute proximal descending colon diverticulitis. No evidence for perforation or abscess. 4. A 2 cm right breast subareolar nodule. This likely represents gynecomastia. However, follow-up mammogram/ultrasound at a dedicated breast care center is recommended for confirmation. 5. Mildly enlarged lymph nodes within the chest as described above. Recommend follow-up nonemergent dedicated chest CT for further evaluation. Electronically signed by: Deepak Bean M.D. 07/19/2017 10:40 AM Dictated Date/Time: 07/19/2017 10:27 AM ASSESSMENT AND PLAN: Lower GI bleed, probably diverticular. Consider other etiologies such as malignancy, ischemic colitis, inflammatory bowel disease, hemorrhoids. Hypotension at time of arrival resolved after 1500 ml NSS. Hgb 13. No need for transfusion at this time. Follow serial H/H's. Type and screen pRBC's. IV antibiotics for apparent diverticulitis. Consult GI. Right breast mass noted on CT. Outpatient f/u with mammogram or US recommended. Right hilar + paratracheal adenopathy noted on CT of abdomen. Nonemergent follow-up with CT of chest recommended. Please refer to CATE Donovan's documentation for discussion of other issues. Taj Valenzuela MD .
[2017-07-19 14:52] LABS: HEMATOCRIT 32.8 % (42-52)
[2017-07-19 15:34] VITALS: BP 106/65; PULSE 88; TEMP 36.7; O2SAT 99
[2017-07-19] MEDS: PIPERACILL/TAZOBAC IV 3.375 GM in DEXTROSE 5% 100ML IV SCH (17:56)
[2017-07-19 19:22] VITALS: BP 122/75; PULSE 74; TEMP 36.9; O2SAT 96
[2017-07-19 23:30] VITALS: BP 111/67; PULSE 73; TEMP 36.9; O2SAT 95
[2017-07-20] VITALS (7 sets, daily range): BP systolic 114–150; BP diastolic 71–84; PULSE 71–81; TEMP 36.5–37; O2SAT 95–98
[2017-07-20] MEDS: PIPERACILL/TAZOBAC IV 3.375 GM in DEXTROSE 5% 100ML IV SCH ×3 (01:36→17:46)
[2017-07-20 03:06] LABS: HEMATOCRIT 26.4 % (42-52); MEAN CELL VOLUME 81.5 fL (80-100); MEAN CORPUSCULAR HEMOGLOBIN 26.9 pg (25-34); MEAN PLATELET VOLUME 8.8 fL (7.4-10.4); PLATELET COUNT 210 K/uL (130-400); RED BLOOD COUNT 3.24 M/uL (4.7-6.1); WHITE BLOOD COUNT 9.28 K/uL (4.8-10.8)
[2017-07-20 03:41] LABS: CREATININE 0.76 mg/dl (0.60-1.40); POTASSIUM 3.6 mmol/L (3.5-5.1)
[2017-07-20] MEDS: SODIUM CHLORIDE 0.9% 1000ML 1,000 ML IV SCH ×3 (03:51→20:22)
[2017-07-20 04:16] LABS: CALCIUM 7.7 mg/dl (8.5-10.1)
--- NOTE | 2017-07-20 14:04 | Gastroenterology Progress Note ---
Progress Note Date of Service: Jul 20, 2017 Subjective Pt evaluation today including: conversation w/ patient, physical exam, chart review, lab review, review of studies, review of inpatient medication list Mr. Tamayo is a 62 yr old male who presented yesterday for rectal bleeding. Hb was 13 on arriva, 8.7 today. 3 small volume dark red/coffee grounds BMs today. Denies abdominal pain Review of Systems Respiratory: No cough Cardiac: No chest pain Abdomen: + diarrhea, + GI bleeding, No pain, No nausea, No vomiting Male : No dysuria Neuro: No memory loss Psych: No depression symptoms Endo: No fatigue Medications Current Inpatient Medications Medications (Trade) Dose Ordered Sig/Krystyna Route Start Time Stop Time Status Last Admin Dose Admin Ioversol (Optiray 320) 100 ml UD PRN IV 07/19/17 10:00 07/23/17 09:59 Acetaminophen (Tylenol Tab) 650 mg Q4H PRN PO 07/19/17 12:00 08/18/17 11:59 Ondansetron HCl (Zofran Inj) 4 mg Q6H PRN IV 07/19/17 12:00 08/18/17 11:59 Sodium Chloride 1,000 ml @ 125 mls/hr Q8H IV 07/19/17 12:00 08/18/17 11:59 07/20/17 12:10 125 MLS/HR Piperacillin Sod/ Tazobactam Sod (Consult) 1 ea UD N/A 07/19/17 13:00 08/18/17 12:59 Piperacillin Sod/ Tazobactam Sod 3.375 gm/Dextrose 115 ml @ 28.75 mls/ hr Q8H IV 07/19/17 18:00 07/29/17 17:59 07/20/17 09:38 28.75 MLS/HR Objective Vital Signs Date Time Temp Pulse Resp B/P (MAP) Pulse Ox O2 Delivery O2 Flow Rate FiO2 07/20/17 12:00 Room Air 07/20/17 11:10 37.0 81 18 144/75 (98) 96 Room Air 07/20/17 08:00 Room Air 07/20/17 06:47 36.8 73 18 135/84 (101) 95 Room Air 07/20/17 04:11 36.9 80 20 130/72 (91) 98 Room Air 07/20/17 04:00 Room Air 07/19/17 23:59 Room Air 07/19/17 23:30 36.9 73 20 111/67 (82) 95 Room Air 07/19/17 19:22 36.9 74 17 122/75 (91) 96 Room Air Oxyhood 07/19/17 19:06 Room Air 07/19/17 16:00 Room Air 07/19/17 15:45 Room Air 07/19/17 15:34 36.7 88 18 106/65 (79) 99 Physical Exam General Appearance: no apparent distress Neck: no JVD Respiratory/Chest: lungs clear Cardiovascular: regular rate, rhythm, no edema, no murmur Abdomen: non tender, soft Extremities: non-tender Neurologic/Psych: alert, normal mood/affect, oriented x 3 Laboratory Results Last 24 Hours Test 07/19/17 14:46 07/19/17 21:02 07/20/17 02:56 07/20/17 13:38 Hemoglobin 10.6 g/dL 9.6 g/dL 8.7 g/dL Hematocrit 32.8 % 29.0 % 26.4 % Lactic Acid Level 0.9 mmol/L White Blood Count 9.28 K/uL Red Blood Count 3.24 M/uL Mean Corpuscular Volume 81.5 fL Mean Corpuscular Hemoglobin 26.9 pg Mean Corpuscular Hemoglobin Concent 33.0 g/dl RDW Standard Deviation 42.6 fL RDW Coefficient of Variation 14.0 % Platelet Count 210 K/uL Mean Platelet Volume 8.8 fL Sodium Level 144 mmol/L Potassium Level 3.6 mmol/L Chloride Level 111 mmol/L Carbon Dioxide Level 26 mmol/L Anion Gap 7.0 mmol/L Blood Urea Nitrogen 14 mg/dl Creatinine 0.76 mg/dl Est Creatinine Clear Calc Drug Dose 112.7 ml/min Estimated GFR () 114.9 Estimated GFR (Non- 99.2 BUN/Creatinine Ratio 19.0 Random Glucose 104 mg/dl Calcium Level 7.7 mg/dl Assessment and Plan Mr. Tamayo is a 62 yr old with rectal bleeding, likely a diverticular bleed. Darker BMs and less frequently. H/H dropped. Plan: 1. BID PPI during hospitalization. 2. If GI bleeding doesn't stop over this weekend then would consider an upper GI source and possible EGD. No plans for colonoscopy because it would not change the course of a diverticular bleed which are typically self limited. CT suggested diverticulitis/significant diverticulosis and though he does not display clinical signs of infection, if present, colonoscopy would be higher risk for perforation. Would rather plan for OP colonoscopy in 6-8 weeks. I have personally seen and examined the patient with JOAQUIM Ochoa. Her note reflects my exam and findings. I agree with her impression and plan. Cont to follow H/H and clinical course. If patient develops recurrent bleeding or continues to drop H/H significantly, consider upper GI source. Discussed with patient and at bedside. Louie Sexton M.D.
[2017-07-20 14:41] LABS: HEMATOCRIT 27.7 % (42-52); MEAN CELL VOLUME 81.2 fL (80-100); MEAN CORPUSCULAR HEMOGLOBIN 27.3 pg (25-34); MEAN CORPUSCULAR HGB CONC 33.6 g/dl (32-36); MEAN PLATELET VOLUME 8.9 fL (7.4-10.4); PLATELET COUNT 219 K/uL (130-400); RED BLOOD COUNT 3.41 M/uL (4.7-6.1); WHITE BLOOD COUNT 6.25 K/uL (4.8-10.8)
--- NOTE | 2017-07-20 18:55 | Progress Note ---
Medicine Progress Note Date & Time of Visit: Jul 20, 2017 at 18:55. Subjective Patient reports feeling well today. Denies any dizziness, lightheadedness, abdominal pain, nausea/vomiting, or diaphoresis. Had 3 BM this AM today that were dark red and nothing since. Is tolerating clear liquids without difficulty but is hoping for his diet to be advanced. Objective Last 8 Hrs Date Time Temp Pulse Resp B/P (MAP) Pulse Ox O2 Delivery O2 Flow Rate FiO2 07/20/17 16:43 96 Room Air 07/20/17 15:57 36.5 71 18 114/71 (85) 96 07/20/17 12:00 Room Air 07/20/17 11:10 37.0 81 18 144/75 (98) 96 Room Air Physical Exam: GENERAL: Patient is in no acute distress. HEENT: No acute trauma, normocephalic atraumatic, mucous membranes moist, no nasal congestion, no scleral icterus. NECK: No stridor, trachea is midline. LUNGS: Clear to auscultation bilaterally, no wheeze, no rhonchi, breath sounds equal. HEART: Without murmurs gallops or rubs, regular rate and rhythm. ABDOMEN: Soft, nontender, bowel sounds positive EXTREMITIES: No cyanosis or edema, full range of motion of all the joints without pain or difficulty, no signs for acute trauma. NEUROLOGIC: Oriented x 3, no acute motor or sensory deficits, no focal weakness. SKIN: No rash, no jaundice, no diaphoresis. Laboratory Results: Last 24 Hours Test 07/19/17 21:02 07/20/17 02:56 07/20/17 14:27 Hemoglobin 9.6 g/dL 8.7 g/dL 9.3 g/dL Hematocrit 29.0 % 26.4 % 27.7 % Lactic Acid Level 0.9 mmol/L White Blood Count 9.28 K/uL 6.25 K/uL Red Blood Count 3.24 M/uL 3.41 M/uL Mean Corpuscular Volume 81.5 fL 81.2 fL Mean Corpuscular Hemoglobin 26.9 pg 27.3 pg Mean Corpuscular Hemoglobin Concent 33.0 g/dl 33.6 g/dl RDW Standard Deviation 42.6 fL 42.4 fL RDW Coefficient of Variation 14.0 % 14.1 % Platelet Count 210 K/uL 219 K/uL Mean Platelet Volume 8.8 fL 8.9 fL Sodium Level 144 mmol/L Potassium Level 3.6 mmol/L Chloride Level 111 mmol/L Carbon Dioxide Level 26 mmol/L Anion Gap 7.0 mmol/L Blood Urea Nitrogen 14 mg/dl Creatinine 0.76 mg/dl Est Creatinine Clear Calc Drug Dose 112.7 ml/min Estimated GFR () 114.9 Estimated GFR (Non- 99.2 BUN/Creatinine Ratio 19.0 Random Glucose 104 mg/dl Calcium Level 7.7 mg/dl Assessment & Plan LOWER GI BLEED: -patient presenting with several episodes of large amounts of hematochezia; -found to be tachycardic and hypotensive which improved with IVF -last colonoscopy about 5 years ago at [facility], was told he had diverticulosis only -Hb was 13.0 on admission, down 8.7 now -monitor and transfuse PRN -most likely diverticular bleed -seen by GI, no plans for scope at this time, likely as an outpatient in 6-8 weeks ACUTE DIVERTICULITIS: -acute descending colon diverticulitis noted on CT scan -WBC 14K -POC lactic acid elevated - serum was 2.4, repeat was 0.9 -difficult to differentiate whether lactate/tachycardia and hypotension are all from sepsis or from blood/volume loss from GI bleed -continue on Zosyn -check stool studies; c diff negative -blood cultures pending INCIDENTAL FINDINGS OF BREAST NODULE: ENLARGED LYMPH NODES -right breast nodule and enlarged lymph nodes in the chest noted on CT abd/ pelvis -breast nodule will need f/u US/mammogram and for enlarged lymph nodes will need follow up dedicated CT chest -discussed this with the patient and his family members and they are aware of the need to follow this up upon discharge HTN: -presented with hypotension -continue to hold lisinopril/HCTZ for now Current Inpatient Medications: Current Inpatient Medications Medications (Trade) Dose Ordered Sig/Krystyna Route Start Time Stop Time Status Last Admin Dose Admin Ioversol (Optiray 320) 100 ml UD PRN IV 07/19/17 10:00 07/23/17 09:59 Acetaminophen (Tylenol Tab) 650 mg Q4H PRN PO 07/19/17 12:00 08/18/17 11:59 Ondansetron HCl (Zofran Inj) 4 mg Q6H PRN IV 07/19/17 12:00 08/18/17 11:59 Sodium Chloride 1,000 ml @ 125 mls/hr Q8H IV 07/19/17 12:00 08/18/17 11:59 07/20/17 12:10 125 MLS/HR Piperacillin Sod/ Tazobactam Sod (Consult) 1 ea UD N/A 07/19/17 13:00 08/18/17 12:59 Piperacillin Sod/ Tazobactam Sod 3.375 gm/Dextrose 115 ml @ 28.75 mls/ hr Q8H IV 07/19/17 18:00 07/29/17 17:59 07/20/17 17:46 28.75 MLS/HR Pantoprazole Sodium (Protonix Tab) 40 mg BID PO 07/20/17 21:00 08/19/17 20:59
[2017-07-20] MEDS: PANTOprazole SOD 40 MG TAB PO SCH (20:22)
[2017-07-21 00:01] VITALS: BP 148/80; PULSE 72; TEMP 37.1; O2SAT 96
[2017-07-21] MEDS: PIPERACILL/TAZOBAC IV 3.375 GM in DEXTROSE 5% 100ML IV SCH ×2 (02:04→09:48)
[2017-07-21 04:08] VITALS: BP 142/75; TEMP 36.7; O2SAT 96
[2017-07-21] MEDS: SODIUM CHLORIDE 0.9% 1000ML 1,000 ML IV SCH (04:28)
[2017-07-21 08:00] VITALS: O2SAT 96
[2017-07-21 08:01] VITALS: BP_SYST 155; BP_SYST 160; BP_SYST 182; BP_DIAS 77; BP_DIAS 78; BP_DIAS 88; PULSE 61; TEMP 36.8; O2SAT 95
[2017-07-21] MEDS: PANTOprazole SOD 40 MG TAB PO SCH ×2 (08:01→19:45)
[2017-07-21 12:00] VITALS: O2SAT 95
[2017-07-21 12:03] VITALS: BP 161/78; TEMP 36.9; O2SAT 96
[2017-07-21] MEDS: AMOXICILLIN/CLAVULANATE TAB 875 MG TAB PO SCH (17:10)
--- NOTE | 2017-07-21 18:03 | Progress Note ---
Medicine Progress Note Date & Time of Visit: Jul 21, 2017 at 18:03. Objective Last 8 Hrs Date Time Temp Pulse Resp B/P (MAP) Pulse Ox O2 Delivery O2 Flow Rate FiO2 07/21/17 12:03 36.9 16 161/78 (105) 96 Room Air 07/21/17 12:00 95 Room Air Physical Exam: GENERAL: Patient is in no acute distress. HEENT: No acute trauma, normocephalic atraumatic, mucous membranes moist, no nasal congestion, no scleral icterus. NECK: No stridor, trachea is midline. LUNGS: Clear to auscultation bilaterally, no wheeze, no rhonchi, breath sounds equal. HEART: Without murmurs gallops or rubs, regular rate and rhythm. ABDOMEN: Soft, nontender, bowel sounds positive EXTREMITIES: No cyanosis or edema, full range of motion of all the joints without pain or difficulty, no signs for acute trauma. NEUROLOGIC: Oriented x 3, no acute motor or sensory deficits, no focal weakness. SKIN: No rash, no jaundice, no diaphoresis. Assessment & Plan LOWER GI BLEED: -patient presenting with several episodes of large amounts of hematochezia; -found to be tachycardic and hypotensive which improved with IVF -last colonoscopy about 5 years ago at [facility], was told he had diverticulosis only -Hb was 13.0 on admission, down 8.7 now -monitor and transfuse PRN -most likely diverticular bleed -seen by GI, no plans for scope at this time, likely as an outpatient in 6-8 weeks ACUTE DIVERTICULITIS: -acute descending colon diverticulitis noted on CT scan -WBC 14K -POC lactic acid elevated - serum was 2.4, repeat was 0.9 -difficult to differentiate whether lactate/tachycardia and hypotension are all from sepsis or from blood/volume loss from GI bleed -continue on Zosyn -check stool studies; c diff negative -blood cultures pending INCIDENTAL FINDINGS OF BREAST NODULE: ENLARGED LYMPH NODES -right breast nodule and enlarged lymph nodes in the chest noted on CT abd/ pelvis -breast nodule will need f/u US/mammogram and for enlarged lymph nodes will need follow up dedicated CT chest -discussed this with the patient and his family members and they are aware of the need to follow this up upon discharge HTN: -presented with hypotension -continue to hold lisinopril/HCTZ for now Current Inpatient Medications: Current Inpatient Medications Medications (Trade) Dose Ordered Sig/Krystyna Route Start Time Stop Time Status Last Admin Dose Admin Ioversol (Optiray 320) 100 ml UD PRN IV 07/19/17 10:00 07/23/17 09:59 Acetaminophen (Tylenol Tab) 650 mg Q4H PRN PO 07/19/17 12:00 08/18/17 11:59 Ondansetron HCl (Zofran Inj) 4 mg Q6H PRN IV 07/19/17 12:00 08/18/17 11:59 Pantoprazole Sodium (Protonix Tab) 40 mg BID PO 07/20/17 21:00 08/19/17 20:59 07/21/17 08:01 40 MG Amoxicillin/ Clavulanate Potassium (Augmentin Tab) 875 mg BIDM PO 07/21/17 16:45 07/31/17 16:44 07/21/17 17:10 875 MG
[2017-07-22 00:43] VITALS: BP 158/81; PULSE 76; TEMP 36.7; O2SAT 98
[2017-07-22] MEDS: AMOXICILLIN/CLAVULANATE TAB 875 MG TAB PO SCH (07:43)
[2017-07-22] MEDS: PANTOprazole SOD 40 MG TAB PO SCH (07:43)
[2017-07-22 08:24] VITALS: BP 168/82; PULSE 70; TEMP 36.7; O2SAT 98
[2017-07-22] MEDS ORDERED: LISINOPRIL 20 MG TAB PO SCH ×2 (09:30→14:45)
[2017-07-22 09:43] LABS: HEMATOCRIT 28.9 % (42-52); MEAN CORPUSCULAR HEMOGLOBIN 26.9 pg (25-34); MEAN CORPUSCULAR HGB CONC 33.2 g/dl (32-36); MEAN PLATELET VOLUME 9.1 fL (7.4-10.4); PLATELET COUNT 230 K/uL (130-400); RED BLOOD COUNT 3.57 M/uL (4.7-6.1); WHITE BLOOD COUNT 6.75 K/uL (4.8-10.8)
[2017-07-22 10:09] LABS: BUN/CREATININE RATIO 10.8 (10-20); CALCIUM 8.6 mg/dl (8.5-10.1); CREATININE 0.78 mg/dl (0.60-1.40); POTASSIUM 3.8 mmol/L (3.5-5.1)
--- NOTE | 2017-07-22 14:28 | Discharge Instructions ---
Discharge Instructions Date of Service Jul 22, 2017. Admission Reason for Admission: Gi Bleed Discharge Discharge Diagnosis / Problem: Diverticulitis Discharge Goals Goal(s): Therapeutic intervention Activity Recommendations Activity Limitations: per Instructions/Follow-up section Lifting Limitations: gradually increase as tolerated Exercise/Sports Limitations: gradually increase as tolerated . Instructions / Follow-Up Instructions / Follow-Up *Please expect a call from Dr. Guevara's office to schedule a follow up appointment for you, they will call you at your home number. Please plan to see GI in about 6-8 weeks, you may need a referral to see them and should mention this at follow up with Dr. Guevara. GI is at [facility] [phone] *Please also address with Dr. Guevara the need for mammogram/ultrasound of the right breast and a repeat CT scan of the lungs to evaluate the lung nodes Current Hospital Diet Patient's current hospital diet: AHA Diet (Heart Healthy) Discharge Diet Recommended Diet: Low Fiber Diet (for 3-4 weeks, then increase to high fiber diet) Pending Studies Studies pending at discharge: no Medical Emergencies . Who to Call and When: Medical Emergencies: If at any time you feel your situation is an emergency, please call 911 immediately. . Non-Emergent Contact Non-Emergency issues call your: Primary Care Provider . . "Provider Documentation" section prepared by Jacquelin Luciano. . VTE Core Measure Inpt VTE Proph given/why not?: SCD's
[2017-07-22] MEDS ORDERED: LISINOPRIL 20 MG TAB PO STA (14:32)
[2017-07-22] MEDS ORDERED: AMOX1TAB43 PO (14:39)
[2017-07-22] MEDS ORDERED: LACTCHW3 PO (14:39)
[2017-07-22] MEDS ORDERED: LSN20 PO (14:39)
[2017-07-22] MEDS ORDERED: PANT40TA PO (14:39)
[2017-07-22 14:45] VITALS: BP 168/82; PULSE 70; TEMP 36.7; O2SAT 98
[2017-07-22] MEDS ORDERED: AMOXICILLIN/CLAVULANATE TAB 875 MG TAB PO SCH (14:45)
[2017-07-22] MEDS ORDERED: AMOXICIL/CLAVU 875MG HOME PACK PO ONE (14:45)
== END 2017-07-22 15:25 | disposition home or self-care (01) | DRG 379 ==
LOC: EDBD 08:54 → C.EDB 08:55 → C.2T 11:51 → ENRESERV 11:58 → C.MS4W 07-21 14:32
PROVIDERS: ADMIT Hospitalist; ATTEND Internal Medicine
DX: K57.33 Diverticulitis of large intestine without perforation or abscess with bleeding (principal); I10 Essential (primary) hypertension; I95.9 Hypotension, unspecified; F41.9 Anxiety disorder, unspecified; K21.9 Gastro-esophageal reflux disease without esophagitis; Z79.899 Other long term (current) drug therapy; N63.10 Unspecified lump in the right breast, unspecified quadrant

== ENCOUNTER 2019-06-24 08:11 | Inpatient (IN) ==
--- NOTE | 2019-06-18 09:25 | PAT Medication Instructions ---
Medication Instructions Date of Service June 18, 2019 Home Medications acetaminophen [Tylenol Extra Strength] 500 - 1,000 mg PO Q6H PRN amlodipine 5 mg PO QAM azelastine 1 spray INTRANASAL Q12H PRN cetirizine 10 mg PO QAM fluticasone propionate 2 spray INTRANASAL DAILY lisinopril-hydrochlorothiazide 1 tab PO QAM loperamide [Imodium A-D] 2 mg PO Q3H PRN potassium chloride 20 meq PO QAM DO NOT take the morning of surgery cetirizine 10 mg PO QAM lisinopril-hydrochlorothiazide 1 tab PO QAM loperamide [Imodium A-D] 2 mg PO Q3H PRN potassium chloride 20 meq PO QAM Take morning of surgery With a small sip of water, OTHERWISE NOTHING TO EAT OR DRINK AFTER MIDNIGHT: acetaminophen [Tylenol Extra Strength] 500 - 1,000 mg PO Q6H PRN (okay to take up to 4 hours prior to surgery if needed) amlodipine 5 mg PO QAM azelastine 1 spray INTRANASAL Q12H PRN fluticasone propionate 2 spray INTRANASAL DAILY Take evening before surgery acetaminophen [Tylenol Extra Strength] 500 - 1,000 mg PO Q6H PRN (if needed) azelastine 1 spray INTRANASAL Q12H PRN (if needed) loperamide [Imodium A-D] 2 mg PO Q3H PRN (if needed) Other Notes If you have any questions please call us at [phone] or [phone] or [phone] or [phone]
--- NOTE | 2019-06-18 13:46 | Anesthesiology Consultation ---
Date of Service June 18, 2019 Assessment & Plan (1) Encounter for pre-operative examination: - Patient anxious RE: SAB (discussed SAB vs. GA) Chart Review Chart Review: Acceptable Risk for Surgery, Pending: Refer to Additional Notes / Consult section (pending preop testing (labs, EKG, CXR)) and Patient seen in Pre Admission Testing Consults Requested none Teaching & Discussion Pre-Anesthesia Teaching/Discussion Notes: Instructed NPO after midnight before surgery,except medications with 15 cc of water. Medication instructions provide d according to the PAT guidelines. ASA ASA3 Proposed Anesthesia Anesthesia Type: General Regional and MAC Spinal Regional Regional Laterality: Left Site: Adductor Canal History Surgery Operation Date: 06/24/19 14:20 Proposed Procedures p Left Total Knee Arthroplasty - Endy Alicia MD Height/Weight Height: 5 ft 6 in Weight: 93.9 kg Allergies Allergy/AdvReac Type Severity Reaction Status Date / Time bee venom protein (honey bee) Allergy Severe Diffuse Unverified 06/18/19 13:55 swelling ibuprofen Allergy Intermediate Hives Unverified 06/17/19 08:34 Medications Home Medications Medication Instructions Recorded Confirmed Last Taken acetaminophen [Tylenol Extra 500 - 1,000 mg PO Q6H PRN 06/17/19 06/17/19 Unknown Strength] amlodipine 5 mg PO QAM 06/17/19 06/17/19 Unknown azelastine 1 spray INTRANASAL Q12H PRN 06/17/19 06/17/19 Unknown cetirizine 10 mg PO QAM 06/17/19 06/17/19 Unknown fluticasone propionate 2 spray INTRANASAL DAILY 06/17/19 06/17/19 Unknown lisinopril-hydrochlorothiazide 1 tab PO QAM 06/17/19 06/17/19 Unknown loperamide [Imodium A-D] 2 mg PO Q3H PRN 06/17/19 06/17/19 Unknown potassium chloride 20 meq PO QAM 06/17/19 06/17/19 Unknown Past Medical History Medical History Diverticulitis hx GERD (gastroesophageal reflux disease) controlled Hypertension Lung nodules under surveillance Obesity Osteoarthritis Right bundle branch block (RBBB) Exercise / Class Metabolic Activity III < 4 Walking/Shop/Light housework Past Family History Family History Brother Family history of esophageal cancer Father Family hx of colon cancer Mother Family history of diabetes mellitus Past Surgical History Surgical History History of cholecystectomy History of colonoscopy History of ear surgery HOLE REPAIRED A CHILD History of endoscopic sinus surgery X 2 History of herniorrhaphy INGUINAL HERNIA History of tonsillectomy History of tooth extraction Past Anesthesia History No Hx of Anesthesia Complications and Other Mother: "slow to wake" History of PONV No Hx of PONV and No Hx of Motion Sickness Social History Smoking Status: Never smoker Do You Dip or Chew Tobacco: No Hx Alcohol Use: No Hx Substance Use: No substance use type: does not use Review of Systems Reflux controlled. Patient denies chest pain, shortness of breath, dyspnea on exertion, cough, wheezing, palpitations. Physical Exam Vital Signs Last Vital Signs Temp 36.9 C 06/18/19 13:47 Pulse 69 06/18/19 13:47 Resp 20 06/18/19 13:47 BP 136/85 06/18/19 13:47 Pulse Ox 97 06/18/19 13:47 PHYSICAL Full neck and c-spine range of motion. Full TMJ range of motion. TMD 4 finger breaths Mallampati Score 2 Dentition: no teeth on upper, missing lower sides/molars Lungs: clear throughout to auscultation Cardiac: regular rate and rhythm, no murmurs noted Spine: normal Carotid arteries: negative bruit Extremities: no edema Testing Laboratory Results 06/18/19 14:09 06/18/19 14:09 PT 10.1 Seconds (9.0-12.0) 06/18/19 14:09 INR 1.0 (0.9-1.1) 06/18/19 14:09 APTT 26.9 Seconds (21.0-31.0) 06/18/19 14:09 Blood Type O Positive 06/18/19 14:09 Antibody Screen NEGATIVE 06/18/19 14:09 Electrocardiogram Date: 06/18/19 Findings: + NSR @ (at 65) and + RBBB Chest X-Ray Date: 06/17/19 Findings: + NAD
[2019-06-18 14:48] LABS: Basophils # (auto) 0.04 K/uL (0-0.2); Basophils % (auto) 0.5 %; Eosinophils # (auto) 0.19 K/uL (0-0.5); Eosinophils % (auto) 2.5 %; Hematocrit (blood only) 41.6 % (42-52); Hemoglobin 14.2 g/dL (14.0-18.0); Immature Granulocytes # (auto) 0.01 K/uL (0.00-0.02); Immature Granulocytes % (auto) 0.1 %; Lymphocytes # (auto) 1.63 K/uL (1.2-3.4); Lymphocytes % (auto) 21.8 %; Mean Corpuscular Hemoglobin 28.3 pg (25-34); Mean Corpuscular Hgb Conc 34.1 g/dL (32-36); Mean Platelet Volume 9.8 fL (7.4-10.4); Monocytes # (auto) 0.55 K/uL (0.11-0.59); Monocytes % (auto) 7.4 %; Neutrophils # (auto) 5.05 K/uL (1.4-6.5); Neutrophils % (auto) 67.7 %; Platelet Count 236 K/uL (130-400); RDW Coefficient of Variation 13.7 % (11.5-14.5); RDW Standard Deviation 41.5 fL (36.4-46.3); Red Blood Count 5.01 M/uL (4.7-6.1); White Blood Count 7.47 K/uL (4.8-10.8)
[2019-06-18 14:56] LABS: BUN Creatinine Ratio 13.5 (10-20); Calcium 9.3 mg/dl (8.5-10.1); Creatinine Clr Calc Pharmacy 85.6 ml/min; Est GFR (African American) 97.8; Est GFR (Non-African American) 84.4; Potassium 4.5 mmol/L (3.5-5.1)
[2019-06-18 15:00] LABS: Partial Thromboplastin Time 26.9 Seconds (21.0-31.0); Prothrombin Time 10.1 Seconds (9.0-12.0)
--- NOTE | 2019-06-18 15:02 | XRay Report ---
XR chest Pre-admission PA/Lat CLINICAL HISTORY: Preoperative chest COMPARISON STUDY: No previous studies for comparison. FINDINGS: The heart is at the upper limits of normal in size. There is no failure. There is no focal pulmonary consolidation. There are no pleural effusions. There is a calcified granuloma the right manish g base.[ IMPRESSION: No active disease in the chest. Electronically signed by: Vlad German M.D. 06/18/2019 3:00 PM
--- NOTE | 2019-06-22 11:28 | History and Physical Report ---
DATE OF ADMISSION: 06/24/2019 CHIEF COMPLAINT: Persistent left knee pain and discomfort and surgical treatment of his left knee. HISTORY OF PRESENT ILLNESS: The patient is a 64-year-old gentleman who presents for his left knee. He continues to have persistent pain and discomfort in his left knee. The injections have been less successful as far as getting much relief. These helped him sometimes up to 40 days and then sometimes hardly at all. He has had increased pain with weightbearing. The more he walks, the more it hurts. He now would like to proceed with surgical treatment. PAST MEDICAL HISTORY: Past medical history of: 1. Hypertension. 2. Gastroesophageal reflux disease. PAST SURGICAL HISTORY: Cholecystectomy. ALLERGIES: BEE STINGS. CURRENT MEDICATIONS: Include 1. Potassium. 2. Lisinopril. 3. Unspecified blood pressure medicine. SOCIAL HISTORY: A 64-year-old male. He is from [place]. He does not smoke. No significant alcohol intake. FAMILY HISTORY: Noncontributory. REVIEW OF HISTORY: Negative for diabetes, neurologic problem, vascular problems, bleeding disorders. No chest pain or shortness of breath. No history of DVT or PE. PHYSICAL EXAMINATION: GENERAL: Reveals a healthy, pleasant, middle-aged male. He looks to be in pretty good health. HEENT: Benign. NECK: Supple, no lymphadenopathy. LUNGS: Clear to auscultation. HEART: Has a regular rate and rhythm. ABDOMEN: Soft, nontender, nondistended. EXTREMITIES: Grossly neurovascularly intact except as follows: Examination of left knee reveals patient ambulates with slight valgus alignment to his knees. He has got small knee effusion. He is tender over the lateral joint line. Range of motion 0-125. No instability. No pain with hip motion. X-RAYS: X-ray of the left knee reviewed. Shows advanced left knee lateral compartment DJD. He has got complete loss of his lateral joint space on the 45-degree flexion films. He has got subchondral sclerosis. He has got some patellofemoral disease as well. He has got fairly large anterior osteophytes in his intercondylar notch area. ASSESSMENT: A 64-year-old male with advanced left knee lateral compartment and patellofemoral compartment degenerative joint disease. He has failed conservative treatment and would like to have his left knee fixed. PLAN: We will take him to the operating room and do a left total knee replacement. The risks and benefits of this procedure were explained to the patient including but not limited to DVT, PE, , infection, neurological injury, vascular injury, bleeding problem, pain, limited range of motion, stiffness, failure to relieve symptoms, incomplete relief of symptoms, need for further surgery in future, fracture, leg length inequality, nerve palsy, etc. The patient understands and desires to proceed. Informed consent was obtained. As far as discharge plans, he is planning to be discharged to home likely with [facility] and then likely do home therapy on his own. MARIA TERESA
[~2019-06-24 08:11] MED LIST changes: -ACET-1256 PO; +ACETAMINOPHEN 500 MG TAB PO SCH; +BUPIVACAINE 0.5 % 5 MG/1 ML PF 10ML VIAL ONE; +BUPIVACAINE LIPOSOME/PF 266 MG, BUPIVACAINE/EPINEPHRINE 50 ML, SODIUM CHLORIDE 0.9% 30 ... INFIL SCH; +CEFAZOLIN 2000MG 2,000 MG/15 ML SYR IV SCH; +FAMOTIDINE 20 MG TAB PO SCH; +GABAPENTIN 600 MG DOSE PO SCH; -LISI-788 PO; +LR 500ML BOLUS IV SCH; +LR 60ML/HR IV SCH; -MELO15TA4 PO; +METOCLOPRAMIDE HCL 10 MG TABLET PO SCH; +MIDAZOLAM HCL 1 MG/ML 2ML VIAL ONE; +MISSING PHYSICIAN SIGNATURE ON ORDER SCH; -NAPR1CAP12 PO; +ROPIVACAINE 0.5% 5 MG/ML 30 ML VIAL ONE; +SCOPOLAMINE 1.5 MG TDSY TD SCH; +SODIUM CHLORIDE 0.9% INJ 10 ML VIAL ONE; -TRAM-10 PO; +ePHEDrine sulfate 50 MG/ML AMP ONE; +fentaNYL citrate 100 MCG/2 ML VIAL ONE
--- NOTE | 2019-06-24 09:03 | History & Physical Bridge Note ---
Date of Service June 24, 2019 History & Physical Bridge Note I have examined the patient, reviewed the History & Physical and in the interval since the performance of the History & Physical I have noted the following changes of clinical significance: no changes noted
[2019-06-24] MEDS ORDERED: GABAPENTIN 300 MG CAP ONE (09:14)
[2019-06-24] MEDS ORDERED: SCOPOLAMINE 1.5 MG TDSY ONE (09:14)
[2019-06-24] MEDS ORDERED: FAMOTIDINE 20 MG TAB ONE (09:14)
[2019-06-24] MEDS ORDERED: METOCLOPRAMIDE HCL 10 MG TABLET ONE (09:15)
[2019-06-24] MEDS ORDERED: ACETAMINOPHEN 500 MG TAB ONE (09:15)
[2019-06-24] MEDS ORDERED: CEFAZOLIN 2,000 MG/15 ML IV PUSH IV ONE (09:16)
[2019-06-24] MEDS ORDERED: TRANEXAMIC ACID 1,000 MG **IV Intra-op IV SCH (09:30)
[2019-06-24] MEDS ORDERED: ePHEDrine sulfate 50 MG/ML AMP IV PRN (10:16)
[2019-06-24] MEDS ORDERED: ATROPINE SULFATE 0.1 MG/ML 10ML SYR IV PRN (10:16)
[2019-06-24] MEDS ORDERED: ONDANSETRON INJ 2 MG/ML 2 ML VIAL IV PRN ×2 (10:16→15:00)
[2019-06-24] MEDS ORDERED: fentaNYL citrate 100 MCG/2 ML VIAL IV PRN (10:16)
[2019-06-24] MEDS ORDERED: BUPIVACAINE LIPOSOME 1.3% 266 MG/20 ML VIAL ONE (11:26)
[2019-06-24] MEDS ORDERED: EPINEPHrine INJ 1 MG/ML AMP ONE (11:26)
[2019-06-24] MEDS ORDERED: BACITRACIN INJ 50,000 UNIT VIAL ONE (11:26)
[2019-06-24] MEDS ORDERED: SODIUM CHLORIDE 0.9% PF 50 ML VIAL ONE (11:26)
[2019-06-24] MEDS ORDERED: BUPIVACAINE 0.25% 30 ML VIAL ONE (11:27)
[2019-06-24] MEDS ORDERED: ONDANSETRON INJ 2 MG/ML 2 ML VIAL ONE (12:45)
[2019-06-24] MEDS ORDERED: PROPOFOL IV EMULSION 10 MG/ML 20 ML VIAL IV ONE (12:45)
[2019-06-24] MEDS ORDERED: LIDOCAINE HCL 2% 2 ML VIAL/AMP(20MG/ML) INFIL ONE (12:45)
--- NOTE | 2019-06-24 13:25 | Post Operative Brief Note ---
PG Immediate Post Op with CF Date of Surgery June 24, 2019 Pre & Post Diagnosis Operation Date: 06/24/19 10:40 Pre-Op Diagnosis: Left Knee Advanced Degenarative Joint Disease Post-Op Diagnosis: Left Knee Advanced Degenarative Joint Disease Procedure Operation Date: 06/24/19 10:40 Actual Procedures p Left Total Knee Arthroplasty(Left) - Endy Alicia MD Surgeon Endy Alicia MD [employer] Law Clerk Jozef, PAC Estimated Blood Loss 50 Findings Consistent with Post-Op Diagnosis Fluids 700 cc Specimens Specimen Description: A. Left Knee Bone and Tissue Drains English Catheter (A 16 Malaysian english catheter was inserted by MERCEDES Valdez, without difficulty, clear yellow urine obtained, output to be monitored by Anesthesia.) Anesthesia Type Spinal MAC Complications none Disposition Accompanied Patient To Recovery: No Disposition: Recovery Room
--- NOTE | 2019-06-24 13:57 | Operative Report ---
DATE OF OPERATION: 06/24/2019 SURGEON: Endy Alicia MD. HEATING EQUIPMENT INSTALLER: MERCEDES Sánchez. PREOPERATIVE DIAGNOSIS: Left knee degenerative joint disease. POSTOPERATIVE DIAGNOSIS: Left knee degenerative joint disease. PROCEDURE PERFORMED: Left cemented posterior stabilized total knee arthroplasty. COMPLICATIONS: None. ESTIMATED BLOOD LOSS: 50 mL. FLUID REPLACEMENT: 700 mL of crystalloid fluid replacement. TOURNIQUET TIME: 58 minutes at 300 mmHg. ANESTHESIA: Spinal with adductor canal block. DRAINS: None. SPECIMENS: Left knee sent for pathology. OPERATIVE INDICATIONS: The patient is a 64-year-old gentleman who has had a fairly long history of left knee pain and discomfort that became less responsive to conservative care. X-rays revealed advanced lateral compartment DJD. He elected to proceed with surgical treatment. OPERATIVE FINDINGS: Revealed advanced left knee DJD. He had a valgus deformity to his knee with grade 4 [id number] disease of the lateral femoral condyle and lateral tibial plateau. He had pretty extensive grade 4 changes in the patellofemoral joint. The medial compartment was well preserved. Moderate-sized knee effusion. OPERATIVE IMPLANTS: Consisted of: 1. Biomet Vanguard size 65 left posterior stabilized femoral component. 2. Biomet size 75 tibial tray. 3. A 10 mm posterior stabilized polyethylene insert. 4. A 31 x 8 all poly patella. OPERATIVE PROCEDURE: The patient was taken to the operating room, identified and placed on the operating table in supine position. All contact areas were appropriately padded. IV antibiotics were provided by anesthesia team. A spinal anesthetic and adductor canal block had been provided in the holding area. Brower catheter was placed in sterile fashion. A left thigh tourniquet was then placed and left lower extremity was then prepped and draped in usual sterile fashion. The left leg was elevated and exsanguinated with use of an Esmarch and tourniquet was placed at 300 mmHg. An anterior approach to the left knee was then performed through a longitudinal incision centered over the patella. Sharp dissection was carried through the subcutaneous tissues down to the level of the extensor mechanism. Medial parapatellar arthrotomy incision was made. Some subperiosteal dissection was carried out medially. The fat pad was resected from beneath the patellar tendon. The lateral patellofemoral ligament was released. The patella was everted and the knee was flexed. The osteophytes were taken off the distal femur. The ACL and PCL were then released from the distal femur and the tibia subluxated anteriorly. The external tibial alignment jig was then placed in the anterior face of the tibia and adjusted 12 mm medially. Proximal tibial cut was made to remove about 2-3 mm of bone from the medial side. Tibia was sized to a size 75. We did try and maximize coverage due to the osteopenia medially. Attention was then drawn to the femur. The distal femur was entered with a sharp drill. Intramedullary canal was suctioned. A left 5-degree valgus cutting guide was placed. Distal femoral cutting block was pinned in place. Distal femoral cut was made to take an additional 3 mm of bone off the distal femur. I then brought the knee out into extension. I did release some of the IT band and posterolateral capsule in order to equalize the extension space. Great care was taken to protect the peroneal nerve at all times. The knee was then flexed. The femur was then sized to a size 65. We did downsize this slightly. The AP cutting block was pinned parallel to the epicondylar axis, which was 6 degrees of external rotation. The anterior cut, anterior chamfer cut, posterior cut, posterior chamfer cuts were made. Box cutting guide was placed and adjusted slightly lateral and the box cut was made. The knee was flexed. The remnants of the medial and lateral menisci were excised. The osteophytes were taken off the posterior aspect of the femur. Trial femoral component was placed. Tibial tray was pinned in maximum external rotation and the drill and stem punch were used to create defect in the proximal tibia for the tibial tray. The knee was then trialled and the 10 mm insert fit most appropriately. Attention was then drawn to the patella. The patella was cleaned of all soft tissues. Patella thickness measured 22 mm in thickness, it was cut down to 13. It was sized to a 31 patella. Lug holes were drilled for 31 patella. Lateral osteophyte was removed. Patella button was placed. Knee was taken through range of motion and the patella tracked nicely with no thumbs test. Attention was then drawn toward placement of permanent components. All trial components were removed. A bone plug was placed in the distal femur to limit blood loss. A double batch of Palacos G cement was mixed. A Biomet Vanguard size 65 left posterior stabilized femoral component, size 71 tibial tray, a size 10 mm posterior stabilized polyethylene insert, and a 31 x 8 all poly patella were then cemented in place. Knee was brought out into full extension until cement hardened. A final cement check was then performed. Pericapsular tissues were injected with a total of 100 mL of a combination of 20 mL of Exparel, 30 mL of normal saline, 50 mL of 0.25% Marcaine with epinephrine. The patient did receive 1 gram of tranexamic acid. The tourniquet was then let down for a final tourniquet time of 58 minutes. Hemostasis was assured with the use of electrocautery. The wound was once again irrigated. Extensor mechanism was then closed with combination of 1 PDS suture and #1 Vicryl suture in a adpajv-ek-wfwha fashion. Extensor mechanism was checked and found to be intact. The subcutaneous tissue was then closed with 2 Dexon suture in a buried interrupted fashion. Skin was closed with skin john. Leg was then cleaned, dried and a sterile dressing of Xeroform, 4 x 4, sterile cast padding and Frandy bandage were applied. The patient was then transferred to the recovery room in stable condition. The patient tolerated the procedure well with no complications. All needle and sponge counts were correct at the end of the operation. I attest to the content of the Intraoperative Record and any orders documented therein. Any exception s are noted below.
--- NOTE | 2019-06-24 14:06 | XRay Report ---
XR knee LT 2V routine CLINICAL HISTORY: Surgical Post Op COMPARISON: Left knee radiographs November 25, 2018. FINDINGS: Alignment of the total left knee arthroplasty is anatomic. There is no fracture or unexpec della radiopaque foreign body. Skin john are present. IMPRESSION: Expected findings following total left knee arthroplasty. Electronically signed by: Hal Oviedo M.D. 06/24/2019 2:04 PM
[2019-06-24] MEDS ORDERED: MAGNESIUM HYDROXIDE SUSP 30 ML UDC PO PRN (15:00)
[2019-06-24] MEDS ORDERED: TAMSULOSIN HCL 0.4 MG CAP PO PRN (15:00)
[2019-06-24] MEDS ORDERED: NALOXONE HCL 0.4 MG/1 ML VIAL/CARP IV PRN (15:00)
[2019-06-24] MEDS ORDERED: HYDROmorphone INJ 0.5 MG/0.5 ML SYR IV PRN (15:00)
[2019-06-24] MEDS ORDERED: LOPERAMIDE HCL 2 MG CAP PO PRN (15:00)
[2019-06-24] MEDS ORDERED: ALUMINUM/MAGNESIUM SUSP 30 ML UDC PO PRN (15:00)
[2019-06-24] MEDS ORDERED: METOCLOPRAMIDE HCL INJ 5 MG/ML 2 ML VIAL IV PRN (15:00)
[2019-06-24] MEDS ORDERED: SODIUM CHLORIDE 0.9% 1000ML 1,000 ML IV SCH (15:00)
[2019-06-24] MEDS ORDERED: BISACODYL 10 MG SUPP PR PRN (15:00)
--- NOTE | 2019-06-24 15:22 | Anesthesiology Progress Note ---
Date of Service June 24, 2019 Anesthesia Post Procedure Vital Signs Vital Signs: Temp Pulse Pulse Resp BP Pulse Ox 06/24/19 14:40 56 L 14 98/63 L 94 06/24/19 14:20 36.3 C L 66 17 112/57 L 96 06/24/19 14:10 36.3 C L 57 L 14 105/73 94 06/24/19 14:00 68 16 134/59 L 97 06/24/19 13:50 66 24 112/60 100 06/24/19 13:40 68 20 113/62 100 06/24/19 13:32 36.2 C L 78 18 114/63 95 06/24/19 08:41 36.7 C 68 18 158/73 H 94 Transfer of Care Handoff Completed per policy Notes Mental Status: alert / awake / arousable and participated in evaluation Patient Amnestic to Procedure: Yes Nausea / Vomiting: adequately controlled Pain: adequately controlled Airway Patency, RR, SpO2: stable & adequate BP & HR: stable & adequate Hydration State: stable & adequate Neuraxial Anesthesia: was administered and sensory block is resolving Anesthetic Complications: no major complications apparent and Pt Satisfied with anesthetic care
[2019-06-24] MEDS: CHECK SCOPOLAMINE PATCH PLACEMENT SCH (15:25)
[2019-06-24] MEDS: OXYCODONE HCL IR 5 MG TAB (IMMEDIATE RELEASE) PO PRN (16:49)
[2019-06-24] MEDS: FERROUS GLUCONATE 324 MG TAB PO SCH (16:50)
[2019-06-24] MEDS: ASCORBIC ACID 500 MG TAB PO SCH (16:50)
[2019-06-24] MEDS: KETOROLAC 30 MG/ML VIAL IV SCH (19:08)
[2019-06-24] MEDS: CEFAZOLIN 2000MG 2,000 MG/15 ML SYR IV SCH (19:13)
[2019-06-24] MEDS ORDERED: TRANEXAMIC ACID 1,000 MG in 0.9 % SODIUM CHLORIDE 100 ML IV SCH (19:30)
[2019-06-24] MEDS ORDERED: SENNA 8.6 MG TAB PO SCH (21:00)
[2019-06-24] MEDS: ASPIRIN 81 MG ECTAB PO SCH (21:49)
[2019-06-24] MEDS: DOCUSATE SODIUM 100 MG CAP PO SCH (21:49)
[2019-06-24] MEDS: TAPENTADOL HCL ER 50 MG TABCR PO SCH (21:49)
[2019-06-24] MEDS: ACETAMINOPHEN 500 MG TAB PO SCH (21:49)
[2019-06-25] MEDS: KETOROLAC 30 MG/ML VIAL IV SCH ×3 (00:15→10:57)
[2019-06-25] MEDS: CHECK SCOPOLAMINE PATCH PLACEMENT SCH (00:15)
[2019-06-25] MEDS: CEFAZOLIN 2000MG 2,000 MG/15 ML SYR IV SCH (03:32)
[2019-06-25] MEDS: ACETAMINOPHEN 500 MG TAB PO SCH ×2 (05:40→13:04)
[2019-06-25 06:02] LABS: Mean Corpuscular Hemoglobin 27.6 pg (25-34); Mean Corpuscular Hgb Conc 32.4 g/dL (32-36); Mean Corpuscular Volume 85.3 fL (80-100); Mean Platelet Volume 9.6 fL (7.4-10.4); Platelet Count 194 K/uL (130-400); RDW Coefficient of Variation 13.7 % (11.5-14.5); RDW Standard Deviation 42.9 fL (36.4-46.3); Red Blood Count 4.34 M/uL (4.7-6.1); White Blood Count 9.22 K/uL (4.8-10.8)
[2019-06-25 06:32] LABS: BUN Creatinine Ratio 15.4 (10-20); Calcium 8.1 mg/dl (8.5-10.1); Creatinine Clr Calc Pharmacy 70.2 ml/min; Est GFR (African American) 78.6; Est GFR (Non-African American) 67.8; Potassium 3.9 mmol/L (3.5-5.1)
[2019-06-25] MEDS: TAPENTADOL HCL ER 50 MG TABCR PO SCH (07:32)
[2019-06-25] MEDS: DOCUSATE SODIUM 100 MG CAP PO SCH (07:33)
[2019-06-25] MEDS: ASPIRIN 81 MG ECTAB PO SCH (07:34)
[2019-06-25] MEDS: ASCORBIC ACID 500 MG TAB PO SCH (07:34)
[2019-06-25] MEDS: FERROUS GLUCONATE 324 MG TAB PO SCH (07:34)
[2019-06-25] MEDS ORDERED: CETIRIZINE HCL 10 MG TABLET PO SCH (09:00)
[2019-06-25] MEDS ORDERED: FLUTICASONE PROPIONATE NA SPR 16 GM BTL SCH (09:00)
[2019-06-25] MEDS ORDERED: AMLODIPINE BESYLATE 5 MG TAB PO SCH (09:00)
[2019-06-25] MEDS ORDERED: LISINOPRIL/HCTZ 20/25MG 1 TAB PO SCH (09:00)
[2019-06-25] MEDS ORDERED: POTASSIUM CHLORIDE 20 MEQ TABCR PO SCH (09:00)
[2019-06-25] MEDS ORDERED: MULTIVITAMIN TAB PO SCH (09:00)
--- NOTE | 2019-06-25 09:45 | Anesthesiology Progress Note ---
Date of Service June 25, 2019 Anesthesia Post Procedure Vital Signs Vital Signs: Temp Pulse Pulse Resp BP BP Pulse Ox 06/25/19 07:20 65 109/68 97 06/25/19 07:05 36.8 C 57 L 16 122/72 97 06/25/19 03:33 36.6 C 59 L 16 109/74 96 06/24/19 22:47 36.5 C 67 16 104/67 96 06/24/19 20:38 36.4 C L 60 16 104/66 96 06/24/19 18:49 36.7 C 65 16 106/66 96 06/24/19 16:58 36.4 C L 61 16 125/76 97 06/24/19 16:00 36.6 C 60 18 123/77 95 06/24/19 15:34 36.6 C 60 17 111/70 97 06/24/19 15:00 36.8 C 58 L 16 110/68 95 06/24/19 14:40 56 L 14 98/63 L 94 06/24/19 14:20 36.3 C L 66 17 112/57 L 96 06/24/19 14:10 36.3 C L 57 L 14 105/73 94 06/24/19 14:00 68 16 134/59 L 97 06/24/19 13:50 66 24 112/60 100 06/24/19 13:40 68 20 113/62 100 06/24/19 13:32 36.2 C L 78 18 114/63 95 Notes Mental Status: alert / awake / arousable and participated in evaluation Patient Amnestic to Procedure: Yes Nausea / Vomiting: adequately controlled Pain: adequately controlled Airway Patency, RR, SpO2: stable & adequate BP & HR: stable & adequate Hydration State: stable & adequate Neuraxial Anesthesia: was administered and sensory block is resolving Anesthetic Complications: no major complications apparent and Pt Satisfied with anesthetic care
[2019-06-25] MEDS: OXYCODONE HCL IR 5 MG TAB (IMMEDIATE RELEASE) PO PRN (10:56)
--- NOTE | 2019-06-25 15:30 | Progress Note ---
DATE: 06/25/2019 SUBJECTIVE: A 64-year-old gentleman postop day #1 from left knee replacement. He is doing pretty well. Pain is controlled. Therapy went well. Denies any chest pain or shortness of breath. Not feeling dizzy or lightheaded. OBJECTIVE: VITAL SIGNS: Temperature 36.7. Vital signs stable. GENERAL: Shows a pleasant, middle-aged male. He is sitting up in his bedside chair, talking to his family. He looks comfortable. EXTREMITIES: Examination of the left leg reveals the dressing to be clean, dry, and intact. He can dorsiflex and plantarflex his foot appropriately. He can almost do a straight leg raise. This required some slight assistance. LABORATORY DATA: Hemoglobin is 12.0. Hematocrit is 37.0. Electrolytes are stable. ASSESSMENT: A 64-year-old gentleman postop day #1 from left knee replacement, doing pretty well. His pain is controlled. He is neurologically intact. Mild anemia without symptoms. PLAN: 1. DVT prophylaxis including thigh-high TEDs, SCDs, and aspirin twice a day. 2. PT/OT. Weight bear as tolerated. Left total knee protocol. 3. Pain control, doing well with current pain regimen. 4. Disposition: Plan to discharge to home with some home health later today.
--- NOTE | 2019-06-28 01:54 | Discharge Summary ---
ADMITTING PHYSICIAN AND SURGEON: Endy Alicia MD ADMITTING DIAGNOSIS: Left knee degenerative joint disease. SURGERY PERFORMED: Left total knee arthroplasty. SECONDARY DIAGNOSES: Hypertension and gastroesophageal reflux disease. CONSULTS: None obtained. HISTORY AND PHYSICAL EXAMINATION: Well documented in the patient's chart. HOSPITAL COURSE: The patient was admitted on 06/24/2019 and underwent total knee arthroplasty, tolerated the procedure well. There were no complications. He was transferred to the PACU postoperatively and later to the orthopedic floor for further care. He was given Ancef for antibiotic prophylaxis, thromboembolic deterrent stockings, sequential compression devices and aspirin for deep venous thrombosis prophylaxis. Hemoglobin, hematocrit and vital signs were monitored during his hospital stay and remained stable. He did not require any blood transfusions. There were no complications. By postoperative day 1, he was tolerating a regular diet, pain was controlled with oral pain medicine. He was participating in physical therapy. On postoperative day 1, he was discharged home, set up with home health services, given printed discharge instructions as well as new prescriptions for extra strength Tylenol, aspirin, iron supplement and oxycodone. Continue home medications, continue physical therapy, weightbearing as tolerated, thromboembolic deterrent stockings. Follow up approximately 2 weeks postoperatively or sooner if there are any problems or concerns.
== END 2019-06-25 17:48 | disposition home health service (06) | DRG 470 ==
LOC: ASU 08:11 → 3E 13:29

== ENCOUNTER 2021-09-24 10:44 | Inpatient (IN) ==
[2021-09-24] MEDS ORDERED: dexAMETHasone**PF** 10 MG/ML VIAL IV ONE (11:06)
--- NOTE | 2021-09-24 11:30 | XRay Report ---
SINGLE VIEW CHEST CLINICAL HISTORY: Dyspnea. FINDINGS: 2 AP, portable, upright chest radiographs are compared to study dated 06/18/2019. The examin ation is degraded by portable technique and apical lordotic positioning. The cardiomediastinal silhou ette is unremarkable. Multifocal airspace consolidation is seen throughout both lungs with a lower lo be predominance. No large pleural effusion or pneumothorax is identified. The skeletal structures are osteopenic. The bony thorax is grossly intact. Cholecystectomy clips are noted in the right upper qu adrant. IMPRESSION: Multifocal airspace consolidation is typical for pneumonia. Clinical correlation will be required and radiographic follow-up to resolution is recommended. ACT 112: Negative or not required by law. Electronically signed by: Reno Hernandez M.D. 09/24/2021 11:29 AM
[2021-09-24 11:40] LABS: Basophils # (auto) 0.01 K/uL (0-0.2); Basophils % (auto) 0.2 %; Eosinophils # (auto) 0.01 K/uL (0-0.5); Eosinophils % (auto) 0.2 %; Hematocrit (blood only) 42.4 % (42-52); Hemoglobin 13.8 g/dL (14.0-18.0); Immature Granulocytes # (auto) 0.01 K/uL (0.00-0.02); Immature Granulocytes % (auto) 0.2 %; Lymphocytes # (auto) 0.55 K/uL (1.2-3.4); Lymphocytes % (auto) 11.9 %; Mean Corpuscular Hemoglobin 27.2 pg (25-34); Mean Corpuscular Hgb Conc 32.5 g/dL (32-36); Mean Corpuscular Volume 83.5 fL (80-100); Mean Platelet Volume 9.9 fL (7.4-10.4); Monocytes # (auto) 0.35 K/uL (0.11-0.59); Monocytes % (auto) 7.6 %; Neutrophils % (auto) 79.9 %; Platelet Count 176 K/uL (130-400); RDW Coefficient of Variation 13.9 % (11.5-14.5); RDW Standard Deviation 42.7 fL (36.4-46.3); Red Blood Count 5.08 M/uL (4.7-6.1); White Blood Count 4.63 K/uL (4.8-10.8)
--- NOTE | 2021-09-24 11:44 | Emergency Department Note ---
History of Present Illness General Chief complaint: Respiratory Problems Stated complaint: COUGH, SOB, UNABLE TO EAT Time Seen by Provider: 09/24/21 10:51 Source: patient Mode of arrival: ambulatory Limitations: no limitations History of Present Illness Maximum Pain Intensity: 6 This patient is a 66-year-old male who presents to the emergency department for evaluation of flulike symptoms. Patient states "I feel like I got hit by a fire truck." He states that he has been sick for about 2.5 weeks. He reports cough, fatigue, shortness of breath, feeling feverish, upset stomach and body aches. He reports that he has had a loss of his taste/smell and has been gagging whenever he tries to eat anything. He has not received a COVID-19 vaccination. He denies being around anyone sick lately. He does live with his , who has not been ill but reports that she has received her full course of COVID-19 vaccinations. Patient reports that he takes something for his blood pressure. He denies history of smoking. Home Medications Medication Instructions Recorded Confirmed Type amlodipine 5 mg tablet 5 mg PO QAM 06/17/19 09/24/21 History azelastine 137 mcg (0.1 %) nasal 1 spray INTRANASAL Q12H PRN 06/17/19 09/24/21 History spray aerosol cetirizine 10 mg tablet 10 mg PO QAM 06/17/19 09/24/21 History fluticasone propionate 50 2 spray INTRANASAL DAILY 06/17/19 09/24/21 History mcg/actuation nasal spray,suspension lisinopril 20 1 tab PO QAM 06/17/19 09/24/21 History mg-hydrochlorothiazide 25 mg tablet loperamide 2 mg capsule (Imodium 2 mg PO Q3H PRN 06/17/19 09/24/21 History A-D) potassium chloride 20 mEq 20 meq PO QAM 06/17/19 09/24/21 History tablet,extended release [place]com Hose #1 ea 07/19/20 07/19/20 Rx Allergies Allergy/AdvReac Type Severity Reaction Status Date / Time bee venom protein (honey bee) Allergy Severe Diffuse Verified 09/24/21 12:52 swelling ibuprofen Allergy Intermediate Hives Verified 09/24/21 12:52 Past Med/Surg History Medical History (Updated 09/24/21 @ 15:38 by Tiffany Fuller PA-C) Diverticulitis hx GERD (gastroesophageal reflux disease) controlled Hypertension Lung nodules under surveillance Obesity Osteoarthritis Right bundle branch block (RBBB) Surgical History History of cholecystectomy History of colonoscopy History of ear surgery HOLE REPAIRED A CHILD History of endoscopic sinus surgery X 2 History of herniorrhaphy INGUINAL HERNIA History of left knee replacement History of tonsillectomy History of tooth extraction Family History Brother Family history of esophageal cancer Father Family hx of colon cancer Mother Family history of diabetes mellitus Social History Smoking Status: Never smoker Second Hand Exposure: No; Hx Alcohol Use: No Hx Substance Use: No Preferred Language: Vietnamese Communication Ability: Effective 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 Beliefs That Will Affect Care: None Current Living Situation: Spouse Feels Safe at Home: Yes Assistive Devices: Walker Review of Systems A total of 10 systems reviewed and were otherwise negative Physical Exam Vital Signs Vital Signs - 24 hr 09/24/21 10:46 09/24/21 11:06 09/24/21 11:13 Temperature 37.5 C Temperature Source Oral Pulse Rate 103 H 87 Pulse Rate [Left Apical] Pulse Rhythm [Left Apical] Respiratory Rate 18 26 H Respiratory Effort / Characteristics Respiratory Depth Respiratory Pattern Blood Pressure 166/80 H Blood Pressure [Left Arm] Blood Pressure Mean 108 Blood Pressure Mean [Left Arm] Pulse Oximetry 83 L 97 87 L Oxygen Delivery Method Room Air Room Air Room Air Oxygen Flow Rate 3 Sepsis Recent Fever Within 48 Hours Yes Sepsis New/Unexplained Change in Mental Status No Sepsis Action Taken by Nursing No Action Required Oxygen Flow Rate - Titration 3 Pulse Oximetry Post Tiitration 96 09/24/21 11:15 09/24/21 11:21 09/24/21 11:30 Temperature Temperature Source Pulse Rate 83 Pulse Rate [Left Apical] 85 Pulse Rhythm [Left Apical] Regular Respiratory Rate 20 23 Respiratory Effort / Characteristics Non-Labored Respiratory Depth Normal Respiratory Pattern Blood Pressure Blood Pressure [Left Arm] 163/83 H Blood Pressure Mean Blood Pressure Mean [Left Arm] 109 Pulse Oximetry 96 96 95 Oxygen Delivery Method Nasal Cannula Nasal Cannula Room Air Oxygen Flow Rate 3 3 3 Sepsis Recent Fever Within 48 Hours Sepsis New/Unexplained Change in Mental Status Sepsis Action Taken by Nursing Oxygen Flow Rate - Titration Pulse Oximetry Post Tiitration 09/24/21 12:00 09/24/21 12:30 09/24/21 12:34 Temperature Temperature Source Pulse Rate 80 80 Pulse Rate [Left Apical] Pulse Rhythm [Left Apical] Respiratory Rate 24 24 Respiratory Effort / Characteristics Non-Labored Respiratory Depth Normal Respiratory Pattern Regular Blood Pressure 140/72 146/77 H Blood Pressure [Left Arm] Blood Pressure Mean 94 100 Blood Pressure Mean [Left Arm] Pulse Oximetry 97 97 Oxygen Delivery Method Room Air Nasal Cannula Oxygen Flow Rate 3 3 Sepsis Recent Fever Within 48 Hours Sepsis New/Unexplained Change in Mental Status Sepsis Action Taken by Nursing Oxygen Flow Rate - Titration Pulse Oximetry Post Tiitration 09/24/21 13:00 09/24/21 13:30 09/24/21 14:00 Temperature Temperature Source Pulse Rate 78 80 75 Pulse Rate [Left Apical] 87 Pulse Rhythm [Left Apical] Respiratory Rate 26 H 24 24 Respiratory Effort / Characteristics Respiratory Depth Respiratory Pattern Blood Pressure 149/80 H 135/81 Blood Pressure [Left Arm] Blood Pressure Mean 103 99 Blood Pressure Mean [Left Arm] Pulse Oximetry 96 96 95 Oxygen Delivery Method Nasal Cannula Nasal Cannula Nasal Cannula Oxygen Flow Rate 3 3 3 Sepsis Recent Fever Within 48 Hours Sepsis New/Unexplained Change in Mental Status Sepsis Action Taken by Nursing Oxygen Flow Rate - Titration Pulse Oximetry Post Tiitration VITALS: Vitals are noted on the nurse's note and reviewed by myself. GENERAL: This is a 66-year-old male, in no acute distress, well-developed well- nourished. SKIN: The skin was without rashes. EARS: External auditory canals clear, tympanic membranes pearly thompson without erythema or effusion bilaterally. EYES: Pupils equal round and reactive to light and accommodation. NOSE: Patent, turbinates without inflammation or discharge. MOUTH: Mucous membranes moist. Tonsils are not enlarged. Pharynx without erythema or exudate. NECK: Supple without nuchal rigidity. No lymphadenopathy. HEART: Regular rate and rhythm without murmurs gallops or rubs. LUNGS: Crackles throughout bilateral bases. Breath sounds diminished throughout. ABDOMEN: Positive bowel sounds x 4. Soft, nontender. NEURO: Patient was alert and oriented to person place and time. Course Administered Medications Amlodipine Besylate (Amlodipine Besylate 5 Mg Tab) 5 mg PO QAM [facility] Stop: 10/24/21 13:44 Last Admin: 09/24/21 14:18 Dose: 5 mg Documented by: [id number] Lisinopril/HCTZ (Lisinopril/Hctz 20/25mg 1 Tab) [facility] Stop: 10/24/21 13:44 Last Admin: 09/24/21 14:18 Dose: 1 tab Documented by: [id number] Sodium Chloride (Nss 1000ml) 1,000 mls @ 125 mls/hr IV .Q8H JORDEN Stop: 09/25/21 05:44 Last Admin: 09/24/21 14:19 Dose: 125 mls/hr Documented by: [id number] Remdesivir 200 mg/ Sodium (Chloride) 250 mls @ 125 mls/hr IV ONE STA; Protocol Stop: 09/24/21 15:47 Last Admin: 09/24/21 14:19 Dose: 125 mls/hr Documented by: [id number] Discontinued Medications Dexamethasone Sodium Phosphate (DexamethasonePf 10 Mg/Ml Vial) 6 mg IV NOW ONE Stop: 09/24/21 11:07 Last Admin: 09/24/21 11:41 Dose: 6 mg Documented by: [id number] Medical Decision Making Differential Diagnosis COVID-19, reactive airway disease, pneumonia, pneumothorax, COPD, CHF, infections, cardiac ischemia, pulmonary embolism, musculoskeletal, gastrointestinal, as well as other pathologies. Home Medications Current Medication List: was personally reviewed by me Laboratory Data Attestation: I reviewed the patient's lab results. Result diagrams: 09/24/21 11:04 09/24/21 11:05 Lab Results 09/24/21 09/24/21 09/24/21 Range/Units 11:03 11:04 11:05 WBC 4.63 L (4.8-10.8) K/uL RBC 5.08 (4.7-6.1) M/uL Hgb 13.8 L (14.0-18.0) g/dL Hct 42.4 (42-52) % MCV 83.5 (80-100) fL MCH 27.2 (25-34) pg MCHC 32.5 (32-36) g/dL RDW Std Deviation 42.7 (36.4-46.3) fL RDW Coeff of Neha 13.9 (11.5-14.5) % Plt Count 176 (130-400) K/uL MPV 9.9 (7.4-10.4) fL Immature Gran % (Auto) 0.2 % Neut % (Auto) 79.9 % Lymph % (Auto) 11.9 % [place] % (Auto) 7.6 % Eos % (Auto) 0.2 % Baso % (Auto) 0.2 % Neut # (Auto) 3.70 (1.4-6.5) K/uL Lymph # (Auto) 0.55 L (1.2-3.4) K/uL [place] # (Auto) 0.35 (0.11-0.59) K/uL Eos # (Auto) 0.01 (0-0.5) K/uL Baso # (Auto) 0.01 (0-0.2) K/uL Immature Gran # (Auto) 0.01 (0.00-0.02) K/uL Sodium 135 L (136-145) mmol/L Potassium 3.9 (3.5-5.1) mmol/L Chloride 100 (98-107) mmol/L Carbon Dioxide 28 (21-32) mmol/L Anion Gap 7.0 (3-11) BUN 18 (7-18) mg/dl Creatinine 1.06 (0.6-1.4) mg/dl Est Cr Clr Drug Dosing 76.2 ml/min Est GFR ( Amer) 85.5 ml/min Est GFR (Non-Af Amer) 73.8 ml/min BUN/Creatinine Ratio 17.4 (10-20) Glucose 105 H (70-99) mg/dl Lactate (0.4-2.0) mmol/L Calcium 8.6 (8.5-10.1) mg/dl Total Bilirubin 0.7 (0.2-1) mg/dl AST 58 H (15-37) U/L ALT 36 (12-78) Alkaline Phosphatase 60 (45-117) U/L Troponin I < 0.015 (0-0.045) ng/ml C-Reactive Protein (0-0.29) mg/dl Total Protein 7.9 (6.4-8.2) gm/dl Albumin 3.2 L (3.4-5.0) gm/dl Globulin 4.7 H (2.5-4.0) gm/dl Albumin/Globulin Ratio 0.7 L (0.9-2) Procalcitonin 0.08 (0-0.5) ng/ml SARS-CoV-2 (PCR) (Negative) Influenza Type A (PCR) (Neg) Influenza Type B (PCR) (Neg) RSV (RT-PCR) (Neg) 09/24/21 09/24/21 09/24/21 Range/Units 11:05 11:05 14:08 WBC (4.8-10.8) K/uL RBC (4.7-6.1) M/uL Hgb (14.0-18.0) g/dL Hct (42-52) % MCV (80-100) fL MCH (25-34) pg MCHC (32-36) g/dL RDW Std Deviation (36.4-46.3) fL RDW Coeff of Neha (11.5-14.5) % Plt Count (130-400) K/uL MPV (7.4-10.4) fL Immature Gran % (Auto) % Neut % (Auto) % Lymph % (Auto) % [place] % (Auto) % Eos % (Auto) % Baso % (Auto) % Neut # (Auto) (1.4-6.5) K/uL Lymph # (Auto) (1.2-3.4) K/uL [place] # (Auto) (0.11-0.59) K/uL Eos # (Auto) (0-0.5) K/uL Baso # (Auto) (0-0.2) K/uL Immature Gran # (Auto) (0.00-0.02) K/uL Sodium (136-145) mmol/L Potassium (3.5-5.1) mmol/L Chloride (98-107) mmol/L Carbon Dioxide (21-32) mmol/L Anion Gap (3-11) BUN (7-18) mg/dl Creatinine (0.6-1.4) mg/dl Est Cr Clr Drug Dosing ml/min Est GFR ( Amer) ml/min Est GFR (Non-Af Amer) ml/min BUN/Creatinine Ratio (10-20) Glucose (70-99) mg/dl Lactate 1.0 (0.4-2.0) mmol/L Calcium (8.5-10.1) mg/dl Total Bilirubin (0.2-1) mg/dl AST (15-37) U/L ALT (12-78) Alkaline Phosphatase (45-117) U/L Troponin I (0-0.045) ng/ml C-Reactive Protein 4.66 H (0-0.29) mg/dl Total Protein (6.4-8.2) gm/dl Albumin (3.4-5.0) gm/dl Globulin (2.5-4.0) gm/dl Albumin/Globulin Ratio (0.9-2) Procalcitonin (0-0.5) ng/ml SARS-CoV-2 (PCR) POSITIVE A* (Negative) Influenza Type A (PCR) Negative (Neg) Influenza Type B (PCR) Negative (Neg) RSV (RT-PCR) Negative (Neg) Imaging Data Attestation: I personally reviewed and interpreted this imaging study as follows: Radiologist's Impression: Chest X-Ray 09/24/21 11:04 SINGLE VIEW CHEST CLINICAL HISTORY: Dyspnea. FINDINGS: 2 AP, portable, upright chest radiographs are compared to study dated 06/18/2019. The examination is degraded by portable technique and apical lordotic positioning. The cardiomediastinal silhouette is unremarkable. Multifocal airspace consolidation is seen throughout both lungs with a lower lobe predominance. No large pleural effusion or pneumothorax is identified. The skeletal structures are osteopenic. The bony thorax is grossly intact. Cholecystectomy clips are noted in the right upper quadrant. IMPRESSION: Multifocal airspace consolidation is typical for pneumonia. Clinical correlation will be required and radiographic follow-up to resolution is recommended. ACT 112: Negative or not required by law. Electronically signed by: Reno Hernandez M.D. 09/24/2021 11:29 AM MDM Narrative Continuous bus driver/monitor: Order was placed for continuous bus driver/monitor. Patient was placed on the bus driver/monitor. Patient was noted to be in normal sinus rhythm at an initial rate of 90 bpm. The patient is a 66-year-old male who presents today complaining of shortness of breath he had recent flulike symptoms. Patient tested positive for COVID-19. Chest x-ray was consistent with this. Procalcitonin was not elevated. Patient given 6 mg of dexamethasone IV. He was hypoxic at 83% on room air. He was placed on oxygen via nasal cannula and was saturating well on 3 L. [facility] patient for further care. Impression & Plan Pneumonia due to COVID-19 virus, Acute respiratory failure with hypoxia Discharge Plan Visit Data Chief Complaint: Respiratory Problems Stated Complaint: COUGH, SOB, UNABLE TO EAT ED Provider: Oni Sheth ED Midlevel Provider: Tiffany Fuller Discharge Problem: Pneumonia due to COVID-19 virus, Acute respiratory failure with hypoxia Forms Stand Alone Forms: [facility] Prescriptions Prescriptions: No Action (DME) [facility] [place] [facility] [place] See Rx Instructions .MEDSUPPLY Qty: 1 RF: 0 loperamide [Imodium A-D] 2 mg Capsule 2 mg PO Q3H PRN (Reason: Diarrhea) RF: 0 cetirizine 10 mg Tablet 10 mg PO QAM RF: 0 amlodipine 5 mg Tablet 5 mg PO QAM RF: 0 lisinopril-hydrochlorothiazide 20-25 mg Tablet 1 tab PO QAM RF: 0 azelastine 137 mcg (0.1 %) Aerosol,[place] 1 spray INTRANASAL Q12H PRN (Reason: Nasal Congestion) RF: 0 fluticasone propionate 50 mcg/actuation [place],Suspension 2 spray INTRANASAL DAILY RF: 0 potassium chloride 20 mEq Tablet Extended Release 20 meq PO QAM RF: 0 Referrals Referrals: Derian Guevara MD [Primary Care Provider] -
[2021-09-24 12:03] LABS: Alanine Aminotransferase 36 (12-78); Albumin Level 3.2 gm/dl (3.4-5.0); Aspartate Aminotransferase 58 U/L (15-37); BUN Creatinine Ratio 17.4 (10-20); Blood Urea Nitrogen 18 mg/dl (7-18); Calcium 8.6 mg/dl (8.5-10.1); Carbon Dioxide 28 mmol/L (21-32); Chloride 100 mmol/L (98-107); Creatinine Clr Calc Pharmacy 76.2 ml/min; Est GFR (African American) 85.5 ml/min; Est GFR (Non-African American) 73.8 ml/min; Glucose 105 mg/dl (70-99); Potassium 3.9 mmol/L (3.5-5.1); Sodium 135 mmol/L (136-145)
[2021-09-24 12:08] LABS: Albumin Globulin Ratio 0.7 (0.9-2); Alkaline Phosphatase 60 U/L (45-117); Bilirubin,Total 0.7 mg/dl (0.2-1); Globulin 4.7 gm/dl (2.5-4.0); Total Protein 7.9 gm/dl (6.4-8.2); Troponin I < 0.015 ng/ml (0-0.045)
[2021-09-24 12:36] LABS: Influenza A virus by PCR Negative (Neg); Influenza B virus by PCR Negative (Neg); RSV by PCR Negative (Neg)
[2021-09-24 12:42] LABS: SARS CoV2 RNA(COVID-19) InHosp POSITIVE (Negative)
[2021-09-24] MEDS ORDERED: ONDANSETRON INJ 2 MG/ML 2 ML VIAL IV PRN (13:43)
--- NOTE | 2021-09-24 13:43 | History & Physical Report ---
Date of Service September 24, 2021 Assessment & Plan (1) Pneumonia due to COVID-19 virus: Plan: - COVID-19 positive - Procalcitonin pending - Lymphocytes 0.55, neutrophils 3.70 - CXR reviewed: Showing multifocal infiltrates suggestive of viral pneumonia - O2 sats were 83% on room air upon arrival to the ER, currently improved to 97% on 3 L - WBC 4.63 - Remdesivir 200 mg IV x 1 then 100 mg daily therafter, decadron 6 mg IV daily. If pt needs convalescent plasma then will ask attending to obtain consent. -Continue pulmonary toilet, Mucinex, albuterol inhaler, incentive spirometry, flutter -Proning (2) Acute respiratory failure with hypoxia: Plan: -Secondary to above (3) HTN (hypertension): Plan: - order his home amlodipine and lisinopril/HCTZ now (4) Diarrhea: Plan: -Intermittent, can use loperamide if continued - No recent use of antibiotics to suspect C. difficile, can consider stool studies if diarrhea were to worsen/persist (5) Obesity (BMI 30.0-34.9): Plan: -Diet and exercise to be encouraged throughout hospital stay, allow HH diet DVT prophylaxis: - teds, Lovenox sub q CODE: Full code Dispo: From home, likely to remain in the hospital x 1-2 days History of Present Illness Primary Care Provider: Derian Guevara MD This is a 66 with PMHx of HTN and seasonal allergies. He denies any other respiratory medical history. Reports he is a employee of [employer] who was previouly working with another person who was obviously ill and then later diagnosed with COVID-19, and feels that he got it from him due to that other individual's lack of masking, covering mouth, handwashing, etc. His symptoms started 6 days ago. He is sneezing, coughing, chills, and felt like his sinuses were congested, severe pressure in this area, can't tolerate po intake due to dry heaves and nausea, intermittent diarrhea, and admits to some loss of taste and smell and some generalized fatigue. He is unvaccinated. He lives at home with his who is vaccinated. Denies alcohol use or tobacco smoking. No ilict drug use. Allergies Allergy/AdvReac Type Severity Reaction Status Date / Time bee venom protein (honey bee) Allergy Severe Diffuse Verified 09/24/21 12:52 swelling ibuprofen Allergy Intermediate Hives Verified 09/24/21 12:52 Home Medications Medication Instructions Recorded Confirmed Type amlodipine 5 mg tablet 5 mg PO QAM 06/17/19 09/24/21 History azelastine 137 mcg (0.1 %) nasal 1 spray INTRANASAL Q12H PRN 06/17/19 09/24/21 History spray aerosol cetirizine 10 mg tablet 10 mg PO QAM 06/17/19 09/24/21 History fluticasone propionate 50 2 spray INTRANASAL DAILY 06/17/19 09/24/21 History mcg/actuation nasal spray,suspension lisinopril 20 1 tab PO QAM 06/17/19 09/24/21 History mg-hydrochlorothiazide 25 mg tablet loperamide 2 mg capsule (Imodium 2 mg PO Q3H PRN 06/17/19 09/24/21 History A-D) potassium chloride 20 mEq 20 meq PO QAM 06/17/19 09/24/21 History tablet,extended release [place]com Hose #1 ea 07/19/20 09/24/21 Rx Past Med/Surg History Medical History (Updated 09/24/21 @ 15:38 by Tiffany Fuller PA-C) Diverticulitis hx GERD (gastroesophageal reflux disease) controlled Hypertension Lung nodules under surveillance Obesity Osteoarthritis Right bundle branch block (RBBB) Surgical History History of cholecystectomy History of colonoscopy History of ear surgery HOLE REPAIRED A CHILD History of endoscopic sinus surgery X 2 History of herniorrhaphy INGUINAL HERNIA History of left knee replacement History of tonsillectomy History of tooth extraction Family History Brother Family history of esophageal cancer Father Family hx of colon cancer Mother Family history of diabetes mellitus Social History Smoking Status: Never smoker Second Hand Exposure: No; Do You Dip or Chew Tobacco: No; Tobacco Cessation Education Requested by Patient: No Hx Alcohol Use: No Hx Substance Use: No Preferred Language: Swazi Communication Ability: Effective Windows Infrastructure 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 Required: No Beliefs That Will Affect Care: None Current Living Situation: Spouse Other Information That Helps Us Care for You: No Feels Safe at Home: Yes Assistive Devices: Glasses Review of Systems Review of Systems: Constitutional: No fever, sweats, + chills Eyes: No diplopia, no worsening or blurred vision ENT: + sinus congestion, normal hearing, no trouble swallowing Respiratory: As per HPI, + cough, +sputum, no dyspnea at rest or on exertion Cardiovascular: No chest pain, tightness or palpitations Abdomen: No pain, +nausea, + dry heaves, no vomiting,+ diarrhea, no constipation Musculoskeletal: No joint pain, calf pain, swelling Neurologic: No weakness, numbness/tingling, or balance problems Psychiatric: No anxiety or depression Skin: No rash or itch Physical Exam Physical Exam: Please refer to the attending addendum as I did not see the patient in person due to being COVID-19 positive. Results & Data Results & Data ([facility]) Vital Signs (Past 12 Hours) Vital Signs Temp Pulse Pulse Resp BP BP Pulse Ox 09/24/21 12:00 80 24 140/72 97 09/24/21 11:30 83 23 95 09/24/21 11:21 85 20 163/83 H 96 09/24/21 11:15 96 09/24/21 11:13 87 L 09/24/21 11:06 87 26 H 97 09/24/21 10:46 37.5 C 103 H 18 166/80 H 83 L Laboratory Results 09/24/21 09/24/21 09/24/21 11:05 11:05 11:04 WBC 4.63 L RBC 5.08 Hgb 13.8 L Hct 42.4 MCV 83.5 MCH 27.2 MCHC 32.5 RDW Std Deviation 42.7 RDW Coeff of Neha 13.9 Plt Count 176 MPV 9.9 Immature Gran % (Auto) 0.2 Neut % (Auto) 79.9 Lymph % (Auto) 11.9 [place] % (Auto) 7.6 Eos % (Auto) 0.2 Baso % (Auto) 0.2 Neut # (Auto) 3.70 Lymph # (Auto) 0.55 L [place] # (Auto) 0.35 Eos # (Auto) 0.01 Baso # (Auto) 0.01 Immature Gran # (Auto) 0.01 Sodium 135 L Potassium 3.9 Chloride 100 Carbon Dioxide 28 Anion Gap 7.0 BUN 18 Creatinine 1.06 Est Cr Clr Drug Dosing 76.2 Est GFR ( Amer) 85.5 Est GFR (Non-Af Amer) 73.8 BUN/Creatinine Ratio 17.4 Glucose 105 H Calcium 8.6 Total Bilirubin 0.7 AST 58 H ALT 36 Alkaline Phosphatase 60 Troponin I < 0.015 Total Protein 7.9 Albumin 3.2 L Globulin 4.7 H Albumin/Globulin Ratio 0.7 L Procalcitonin SARS-CoV-2 (PCR) POSITIVE A* Influenza Type A (PCR) Negative Influenza Type B (PCR) Negative RSV (RT-PCR) Negative 09/24/21 11:03 WBC RBC Hgb Hct MCV MCH MCHC RDW Std Deviation RDW Coeff of Neha Plt Count MPV Immature Gran % (Auto) Neut % (Auto) Lymph % (Auto) [place] % (Auto) Eos % (Auto) Baso % (Auto) Neut # (Auto) Lymph # (Auto) [place] # (Auto) Eos # (Auto) Baso # (Auto) Immature Gran # (Auto) Sodium Potassium Chloride Carbon Dioxide Anion Gap BUN Creatinine Est Cr Clr Drug Dosing Est GFR ( Amer) Est GFR (Non-Af Amer) BUN/Creatinine Ratio Glucose Calcium Total Bilirubin AST ALT Alkaline Phosphatase Troponin I Total Protein Albumin Globulin Albumin/Globulin Ratio Procalcitonin 0.08 SARS-CoV-2 (PCR) Influenza Type A (PCR) Influenza Type B (PCR) RSV (RT-PCR) Diagnostic Findings Chest X-Ray 09/24/21 11:04 SINGLE VIEW CHEST CLINICAL HISTORY: Dyspnea. FINDINGS: 2 AP, portable, upright chest radiographs are compared to study dated 06/18/2019. The examination is degraded by portable technique and apical lordotic positioning. The cardiomediastinal silhouette is unremarkable. Multifocal airspace consolidation is seen throughout both lungs with a lower lobe predominance. No large pleural effusion or pneumothorax is identified. The skeletal structures are osteopenic. The bony thorax is grossly intact. Cholecystectomy clips are noted in the right upper quadrant. IMPRESSION: Multifocal airspace consolidation is typical for pneumonia. Clinical correlation will be required and radiographic follow-up to resolution is recommended. ACT 112: Negative or not required by law. Electronically signed by: Reno Hernandez M.D. 09/24/2021 11:29 AM Code Status & VTE Plan Code Status Full code - discussed with pt at bedside Supervising Physician Co-Signing Physician Notes 66-year-old man with PMH of left knee replacement, HTN, cholecystectomy, inguinal hernia repair, sinus surgery presented to our ED 09/24 for evaluation of flulike symptoms which is started almost 6 days ago [employer]. Patient is not vaccinated. Patient's is vaccinated. He reports dry cough and diarrhea along with sinus symptoms. No smoking, no alcohol, no recreational drugs. Full code. No history of clot/tuberculosis/cancer. No home oxygen requirement. Patient on 4 L oxygen at bedside exam. Risks and benefits of remdesivir were discussed with the patient, patient agreed to remdesivir. Dexamethasone, remdesivir, incentive spirometer, flutter valve, proning, supplemental oxygen, symptomatic management for cough, watch out for secondary bacterial infection. Monitor AST and ALT for the duration of remdesivir. Open examination: GENERAL: Alert and oriented x3. NAD, on 4 L HEENT: No pallor, no icterus. Pupils equal, round and reactive to light. Oral mucosa moist. NECK: No JVD, no neck masses. HEART: S1 and S2 heard. Regular rate and rhythm. No murmur, no gallop. RESPIRATORY SYSTEM: Normal AP diameter. No accessory muscle use. No wheezing, crackles bilaterally mid to lower lobes. Decreased breath sounds, occasional dry cough noted at bedside ABDOMEN: Soft, bowel sounds present, nontender, no distention. CENTRAL NERVOUS SYSTEM: No facial droop. Speech is clear. Obeys simple commands. Moves extremities. EXTREMITIES: No edema, no erythema seen. I have seen and examined the patient and have discussed the case with the provider above. I agree with the assessment and plan as stated.
[2021-09-24] MEDS ORDERED: REMDESIVIR 200 MG in SODIUM CHLORIDE 0.9% 210 ML IV STA (13:48)
[2021-09-24] MEDS: LISINOPRIL/HCTZ 20/25MG 1 TAB PO SCH (14:18)
[2021-09-24] MEDS: amLODIPine BESYLATE 5 MG TAB PO SCH (14:18)
[2021-09-24] MEDS: SODIUM CHLORIDE 0.9% 1000ML 1,000 ML IV SCH (14:19)
[2021-09-24] MEDS ORDERED: AZELASTINE HCL 0.1% NASAL 200 SPRAYS/27,400 MCG BTL PRN (17:11)
[2021-09-24] MEDS ORDERED: ACETAMINOPHEN 325 MG TAB PO PRN (17:11)
[2021-09-24] MEDS ORDERED: LOPERAMIDE HCL 2 MG CAP PO PRN (17:11)
[2021-09-24] MEDS: SODIUM CHLORIDE 0.9% 10ML FLUSH IV SCH (18:19)
[2021-09-24] MEDS: BENZONATATE 100 MG CAPSULE PO SCH ×2 (18:22→21:08)
[2021-09-24] MEDS: guaiFENesin 600 MG TABCR PO SCH (21:08)
[2021-09-24] MEDS: ALBUTEROL HFA 8 GM INHALER INH SCH ×2 (23:26→23:27)
[2021-09-25] MEDS: SODIUM CHLORIDE 0.9% 1000ML 1,000 ML IV SCH (01:44)
--- NOTE | 2021-09-25 06:27 | Electrocardiogram Report ---
Test Reason : Blood Pressure : / mmHG Vent. Rate : 090 BPM Atrial Rate : 090 BPM P-R Int : 146 ms QRS Dur : 122 ms QT Int : 390 ms P-R-T Axes : 053 -08 025 degrees QTc Int : 477 ms Normal sinus rhythm Right bundle branch block Abnormal ECG When compared with ECG of 18-JUN-2019 14:14, Non-specific change in ST segment in Anterior leads T wave inversion now evident in Anterior leads QT has lengthened Confirmed by Preet Collier ([id number]) on 09/25/2021 6:27:22 AM Referred By: Confirmed By:Preet Collier
[2021-09-25 06:28] LABS: Hematocrit (blood only) 39.6 % (42-52); Hemoglobin 12.9 g/dL (14.0-18.0); Mean Corpuscular Hemoglobin 27.1 pg (25-34); Mean Corpuscular Hgb Conc 32.6 g/dL (32-36); Mean Corpuscular Volume 83.2 fL (80-100); Mean Platelet Volume 9.8 fL (7.4-10.4); Platelet Count 168 K/uL (130-400); RDW Coefficient of Variation 13.9 % (11.5-14.5); RDW Standard Deviation 42.4 fL (36.4-46.3); Red Blood Count 4.76 M/uL (4.7-6.1); White Blood Count 2.33 K/uL (4.8-10.8)
[2021-09-25 07:04] LABS: Albumin Level 2.6 gm/dl (3.4-5.0); BUN Creatinine Ratio 24.4 (10-20); Calcium 8.2 mg/dl (8.5-10.1); Creatinine Clr Calc Pharmacy 99.7 ml/min; Est GFR (African American) 108.9 ml/min; Est GFR (Non-African American) 93.9 ml/min; Potassium 3.7 mmol/L (3.5-5.1)
[2021-09-25 07:07] LABS: Albumin Globulin Ratio 0.6 (0.9-2); Bilirubin,Total 0.6 mg/dl (0.2-1); Globulin 4.4 gm/dl (2.5-4.0); Total Protein 7.1 gm/dl (6.4-8.2)
[2021-09-25] MEDS: BENZONATATE 100 MG CAPSULE PO SCH ×3 (08:01→20:52)
[2021-09-25] MEDS: ENOXAPARIN INJ 40 MG/0.4 ML SYR SQ SCH (08:01)
[2021-09-25] MEDS: CETIRIZINE HCL 10 MG TABLET PO SCH (08:01)
[2021-09-25] MEDS: dexAMETHasone 6 MG in SYRINGE 0 ML IV SCH (08:01)
[2021-09-25] MEDS: FLUTICASONE PROPIONATE NA SPR 16 GM BTL SCH (08:01)
[2021-09-25] MEDS: POTASSIUM CHLORIDE CRTAB 20 MEQ TABCR PO SCH (08:02)
[2021-09-25] MEDS: guaiFENesin 600 MG TABCR PO SCH ×2 (08:02→20:53)
[2021-09-25] MEDS: ALBUTEROL HFA 8 GM INHALER INH SCH ×2 (08:06→11:14)
[2021-09-25] MEDS ORDERED: ENOXAPARIN INJ 40 MG/0.4 ML SYR SQ SCH (09:00)
[2021-09-25] MEDS: amLODIPine BESYLATE 5 MG TAB PO SCH (11:09)
[2021-09-25] MEDS: REMDESIVIR 100 MG in SODIUM CHLORIDE 0.9% 230 ML IV SCH (11:09)
[2021-09-25] MEDS: LISINOPRIL/HCTZ 20/25MG 1 TAB PO SCH (11:09)
[2021-09-25] MEDS: SODIUM CHLORIDE 0.9% 10ML FLUSH IV SCH (12:40)
[2021-09-25] MEDS ORDERED: ALBUTEROL HFA 8 GM INHALER INH PRN (15:00)
[2021-09-25] MEDS ORDERED: SODIUM CHLORIDE 0.65% NA SOLN 45 ML (OCEAN) ONE (15:31)
--- NOTE | 2021-09-25 15:42 | Hospitalist Progress Note ---
Date of Service September 25, 2021 Assessment & Plan (1) Pneumonia due to COVID-19 virus: (2) Acute respiratory failure with hypoxia: Plan: (1) Pneumonia due to COVID-19 virus: - COVID-19 positive 09/24. 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 Not va ccinated. No history of blood clot/tuberculosis/cancer. - Procalcitonin negative - Admitting CXR reviewed: Showing multifocal infiltrates suggestive of viral pneumonia - O2 sats were 83% on room air upon arrival to the ER, currently on 3 L - c/remdesivir 09/24 and dexamethasone 09/24. - Continue pulmonary toilet, Mucinex, albuterol inhaler, incentive spirometry, flutter - Proning (2) Acute respiratory failure with hypoxia: -Secondary to above (3) HTN (hypertension): - order his home amlodipine and lisinopril/HCTZ now (4) Diarrhea: - Intermittent, can use loperamide if continued - No recent use of antibiotics to suspect C. difficile - Improved (5) Obesity (BMI 30.0-34.9): -Diet and exercise to be encouraged throughout hospital stay, allow HH diet DVT prophylaxis: - Farida farooq sub q CODE: Full code Dispo: From home, likely DC clarence if no new issues arises. Admission and Anticipated Discharge Date Admission Date: September 24, 2021 Subjective Patient sitting up, onto denies, oxygen, NAD, no new acute events overnight. Patient reports eating and moving bowels [diarrhea improving]. Patient reports improving cough with scant white mucus production. Patient denies fever/headache/chills/chest pain/palpitation/other review of symptoms. Physical Exam Physical Exam: GENERAL: Alert and oriented x3. NAD, on 3 L HEENT: No pallor, no icterus. Pupils equal, round and reactive to light. Oral mucosa moist. NECK: No JVD, no neck masses. HEART: S1 and S2 heard. Regular rate and rhythm. No murmur, no gallop. RESPIRATORY SYSTEM: Normal AP diameter. No accessory muscle use. No wheezing, crackles bilaterally mid to lower lobes. Decreased breath sounds ABDOMEN: Soft, bowel sounds present, nontender, no distention. CENTRAL NERVOUS SYSTEM: No facial droop. Speech is clear. Obeys simple commands. Moves extremities. EXTREMITIES: No edema, no erythema seen. Results & Data Results & Data ([facility]) Vital Signs (Past 12 Hours) Vital Signs Temp Pulse Pulse Resp BP Pulse Ox 09/25/21 12:40 36.6 C 56 L 18 135/69 98 09/25/21 11:15 68 18 95 09/25/21 08:09 61 16 96 09/25/21 08:00 36.6 C 58 L 20 121/71 97 09/25/21 06:20 54 L 09/25/21 03:36 36.5 C 54 L 20 122/78 99
[2021-09-26] MEDS ORDERED: guaiFENesin/CODEINE 100MG/10MG 5ML UDC PO PRN (06:48)
[2021-09-26 07:04] LABS: Hematocrit (blood only) 43.1 % (42-52); Hemoglobin 14.3 g/dL (14.0-18.0); Mean Corpuscular Hemoglobin 27.3 pg (25-34); Mean Corpuscular Hgb Conc 33.2 g/dL (32-36); Mean Corpuscular Volume 82.4 fL (80-100); Mean Platelet Volume 9.9 fL (7.4-10.4); Platelet Count 198 K/uL (130-400); RDW Coefficient of Variation 13.9 % (11.5-14.5); Red Blood Count 5.23 M/uL (4.7-6.1); White Blood Count 4.27 K/uL (4.8-10.8)
[2021-09-26 07:20] LABS: Estimated Average Glucose 143 mg/dl; Hemoglobin A1C 6.6 % (4.5-5.6)
[2021-09-26] MEDS: guaiFENesin 600 MG TABCR PO SCH (07:30)
[2021-09-26] MEDS: ENOXAPARIN INJ 40 MG/0.4 ML SYR SQ SCH (07:30)
[2021-09-26] MEDS: LISINOPRIL/HCTZ 20/25MG 1 TAB PO SCH (07:30)
[2021-09-26] MEDS: dexAMETHasone 6 MG in SYRINGE 0 ML IV SCH (07:30)
[2021-09-26] MEDS: amLODIPine BESYLATE 5 MG TAB PO SCH (07:31)
[2021-09-26] MEDS: CETIRIZINE HCL 10 MG TABLET PO SCH (07:31)
[2021-09-26] MEDS: BENZONATATE 100 MG CAPSULE PO SCH ×2 (07:31→11:47)
[2021-09-26] MEDS: FLUTICASONE PROPIONATE NA SPR 16 GM BTL SCH (07:32)
[2021-09-26] MEDS: POTASSIUM CHLORIDE CRTAB 20 MEQ TABCR PO SCH (07:37)
[2021-09-26 07:43] LABS: Albumin Level 2.8 gm/dl (3.4-5.0); BUN Creatinine Ratio 24.6 (10-20); Calcium 8.9 mg/dl (8.5-10.1); Creatinine Clr Calc Pharmacy 98.9 ml/min; Est GFR (African American) 108.9 ml/min; Est GFR (Non-African American) 93.9 ml/min; Potassium 3.9 mmol/L (3.5-5.1)
[2021-09-26 07:46] LABS: Albumin Globulin Ratio 0.6 (0.9-2); Bilirubin,Total 0.5 mg/dl (0.2-1); Globulin 4.6 gm/dl (2.5-4.0); Total Protein 7.4 gm/dl (6.4-8.2)
[2021-09-26] MEDS: REMDESIVIR 100 MG in SODIUM CHLORIDE 0.9% 230 ML IV SCH (10:54)
--- NOTE | 2021-09-26 12:00 | Discharge Summary ---
Date of Service September 26, 2021 Admission HPI Per Admitting Provider This is a 66 with PMHx of HTN and seasonal allergies. He denies any other respiratory medical history. Reports he is a employee of [employer] who was previouly working with another person who was obviously ill and then later diagnosed with COVID-19, and feels that he got it from him due to that other individual's lack of masking, covering mouth, handwashing, etc. His symptoms started 6 days ago. He is sneezing, coughing, chills, and felt like his sinuses were congested, severe pressure in this area, can't tolerate po intake due to dry heaves and nausea, intermittent diarrhea, and admits to some loss of taste and smell and some generalized fatigue. He is unvaccinated. He lives at home with his who is vaccinated. Denies alcohol use or tobacco smoking. No ilict drug use. Admission Exam Per Admitting Provider GENERAL: Alert and oriented x3. NAD, on 4 L HEENT: No pallor, no icterus. Pupils equal, round and reactive to light. Oral mucosa moist. NECK: No JVD, no neck masses. HEART: S1 and S2 heard. Regular rate and rhythm. No murmur, no gallop. RESPIRATORY SYSTEM: Normal AP diameter. No accessory muscle use. No wheezing, crackles bilaterally mid to lower lobes. Decreased breath sounds, occasional dry cough noted at bedside ABDOMEN: Soft, bowel sounds present, nontender, no distention. CENTRAL NERVOUS SYSTEM: No facial droop. Speech is clear. Obeys simple commands. Moves extremities. EXTREMITIES: No edema, no erythema seen. Principal Diagnosis Acute hypoxic respiratory failure Pneumonia due to COVID-19 virus. Discharge Exam GENERAL: Alert and oriented x3. NAD, on 2 L HEENT: No pallor, no icterus. Pupils equal, round and reactive to light. Oral mucosa moist. NECK: No JVD, no neck masses. HEART: S1 and S2 heard. Regular rate and rhythm. No murmur, no gallop. RESPIRATORY SYSTEM: Normal AP diameter. No accessory muscle use. No wheezing, crackles bilaterally lower lobes. Decreased breath sounds ABDOMEN: Soft, bowel sounds present, nontender, no distention. CENTRAL NERVOUS SYSTEM: No facial droop. Speech is clear. Obeys simple commands. Moves extremities. EXTREMITIES: No edema, no erythema seen. Discharge Data Allergies Allergy/AdvReac Type Severity Reaction Status Date / Time bee venom protein (honey bee) Allergy Severe Diffuse Verified 09/24/21 12:52 swelling ibuprofen Allergy Intermediate Hives Verified 09/24/21 12:52 Hospital Course (1) Pneumonia due to COVID-19 virus: (2) Acute respiratory failure with hypoxia: 66-year-old man with PMH of left knee replacement, HTN, cholecystectomy, inguinal hernia repair, sinus surgery presented to our ED 09/24 for evaluation of flulike symptoms which is started almost 6 days ago [employer]. Patient is not vaccinated. Patient's is vaccinated. He reports dry cough and diarrhea along with sinus symptoms. No smoking, no alcohol, no recreational drugs. Full code. No history of clot/tuberculosis/cancer. No home oxygen requirement. He was managed for the following while inpatient: (1) Pneumonia due to COVID-19 virus: - COVID-19 positive 09/24. 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 Not vaccinated. No history of blood clot/tuberculosis/cancer. -Admitting procalcitonin negative - Admitting CXR reviewed: Showing multifocal infiltrates suggestive of viral pneumonia - O2 sats were 83% on room air upon arrival to the ER, currently on 3 L - Status post remdesivir . On dexamethasone from 09/24. - Continue pulmonary toilet, Mucinex, albuterol inhaler, incentive spirometry, flutter - Proning -Patient advised to continue with flutter valve and incentive spirometer and home -Patient advised to maintain self-isolation at home for 10 days from the date of diagnosis which is 09/24 (2) Acute respiratory failure with hypoxia: -Secondary to above (3) HTN (hypertension): -Home medications (4) Diarrhea: - Improved (5) Obesity (BMI 30.0-34.9): -Diet and exercise to be encouraged throughout hospital stay, allow HH diet DVT prophylaxis: - teds, Lovenox sub q CODE: Full code Patient is being discharged home with the following instruction at the point of discharge: Follow-up with your primary care physician within a week time. Continue incentive spirometer and flutter valve for 7 days upon discharge. Take medications as prescribed. Maintain self-isolation for 10 days from the date of your diagnosis which is 09/24. Total Time Total Time Spent Total Time Spent (In Minutes): 35 Discharge Plan Discharge Items Patient Disposition: Home - Self-Care Reason For Visit: COVID 19 PNEUMONIA Discharge Diagnosis: Acute hypoxic respiratory failure Pneumonia secondary to Covid 19 Activity: Resume your previous activity Activity Comment: Continue incentive spirometer and flutter valve at home for 7 days. Non-emergency contact: Primary Care Provider Call non-emergency contact if: you have any medication questions, your symptoms worsen and your temperature is above 101 Follow-up/Referrals: Derian Guevara MD [Primary Care Provider] - (Date & Time 10/05/2021 11:20 AM Provider Erin Majano MD Department Family Medicine [facility] ) Diet: Heart Healthy Addtl Attending Provider Instructions: Follow-up with your primary care physician within a week time. Continue incentive spirometer and flutter valve for 7 days upon discharge. Take medications as prescribed. Maintain self-isolation for 10 days from the date of your diagnosis which is 09/24. Home Isolation COVID-19 Instructions The following information about Home Isolation is from the CDC Website: https://www.cdc.gov/coronavirus/2019-ncov/hcp/jcmujoqm-grsbfae-tzsbnz.html Stay home except to get medical care People who are mildly ill with COVID-19 are able to isolate at home during their illness. You should restrict activities outside your home, except for getting medical care. Do not go to work, school, or public areas. Avoid using public transportation, ride-sharing, or taxis. Separate yourself from other people and animals in your home People: As much as possible, you should stay in a specific room and away from other people in your home. Also, you should use a separate bathroom, if available. Animals: You should restrict contact with pets and other animals while you are sick with COVID-19, just like you would around other people. Although there have not been reports of pets or other animals becoming sick with COVID-19, it is still recommended that people sick with COVID-19 limit contact with animals until more information is known about the virus. When possible, have another member of your household care for your animals while you are sick. If you are sick with COVID-19, avoid contact with your pet, including petting, snuggling, being kissed or licked, and sharing food. If you must care for your pet or be around animals while you are sick, wash your hands before and after you interact with pets and wear a face mask. Call ahead before visiting your doctor If you have a medical appointment, call the healthcare provider and tell them that you have or may have COVID-19. This will help the healthcare providers office take steps to keep other people from getting infected or exposed. Wear a face mask You should wear a face mask when you are around other people (e.g., sharing a room or vehicle) or pets and before you enter a healthcare providers office. If you are not able to wear a face mask (for example, because it causes trouble breathing), then people who live with you should not stay in the same room with you, or they should wear a face mask if they enter your room. Cover your coughs and sneezes Cover your mouth and nose with a tissue when you cough or sneeze. Throw used tissues in a lined trash can. Immediately wash your hands with soap and water for at least 20 seconds or, if soap and water are not available, clean your hands with an alcohol-based hand die setter that contains at least 60% alcohol. Clean your hands often Wash your hands often with soap and water for at least 20 seconds, especially after blowing your nose, coughing, or sneezing; going to the bathroom; and before eating or preparing food. If soap and water are not readily available, use an alcohol-based hand die setter with at least 60% alcohol, covering all surfaces of your hands and rubbing them together until they feel dry. Soap and water are the best option if hands are visibly dirty. Avoid touching your eyes, nose, and mouth with unwashed hands. Avoid sharing personal household items You should not share dishes, drinking glasses, cups, eating utensils, towels, or bedding with other people or pets in your home. After using these items, they should be washed thoroughly with soap and water. Clean all high-touch surfaces everyday High touch surfaces include counters, tabletops, doorknobs, bathroom fixtures, toilets, phones, keyboards, tablets, and bedside tables. Also, clean any surfaces that may have blood, stool, or body fluids on them. Use a household cleaning spray or wipe, according to the label instructions. Labels contain instructions for safe and effective use of the cleaning product including prec autions you should take when applying the product, such as wearing gloves and making sure you have good ventilation during use of the product. Monitor your symptoms Seek prompt medical attention if your illness is worsening (e.g., difficulty breathing).Beforeseeking care, call your healthcare provider and tell them that you have, or are being evaluated for, COVID-19. Put on a face mask before you enter the facility. These steps will help the healthcare providers office to keep other people in the office or waiting room from getting infected or exposed. Ask your healthcare provider to call the local or state health department. Persons who are placed under active monitoring or facilitated self- monitoring should follow instructions provided by their local health department or occupational health professionals, as appropriate. When working with your local health department check their available hours. If you have a medical emergency and need to call 911, notify the dispatch personnel that you have, or are being evaluated for COVID-19. If possible, put on a face mask before emergency medical services arrive. Discontinuing home isolation Patients with confirmed COVID-19 should remain under home isolation precautions until the risk of secondary transmission to others is thought to be low. The decision to discontinue home isolation precautions should be made on a [id number] basis, in consultation with healthcare providers and [facility] and [facility] health departments. Pending Studies at Discharge: No Stand-Alone Forms: [facility], Smoking Cessation Medications and DC Order Prescriptions: New guaifenesin [Mucinex] 600 mg Tablet Extended Release 12hr 1,200 mg PO Q12 5 Days Qty: 20 RF: 0 dexamethasone [Decadron] 6 mg tablet 6 mg PO DAILY 5 Days Qty: 5 RF: 0 Continued (DME) [facility]com Salazar [facility] [place] See Rx Instructions .MEDSUPPLY Qty: 1 RF: 0 loperamide [Imodium A-D] 2 mg Capsule 2 mg PO Q3H PRN (Reason: Diarrhea) RF: 0 cetirizine 10 mg Tablet 10 mg PO QAM RF: 0 amlodipine 5 mg Tablet 5 mg PO QAM RF: 0 lisinopril-hydrochlorothiazide 20-25 mg Tablet 1 tab PO QAM RF: 0 azelastine 137 mcg (0.1 %) Aerosol,[place] 1 spray INTRANASAL Q12H PRN (Reason: Nasal Congestion) RF: 0 fluticasone propionate 50 mcg/actuation [place],Suspension 2 spray INTRANASAL DAILY RF: 0 potassium chloride 20 mEq Tablet Extended Release 20 meq PO QAM RF: 0 Discharge Orders: Discharge Order (Routine); Ordered 09/26/21 Ordered By: Jr Da Silva Admission Data Admit Date/Time: 09/24/21 13:43 Attending Provider: Jr Da Sivla Admit Provider: Jr Da Silva Primary Care Provider: Derian Guevara
[2021-09-26] MEDS: SODIUM CHLORIDE 0.9% 10ML FLUSH IV SCH (12:05)
== END 2021-09-26 15:51 | disposition home or self-care (01) | DRG 177 ==
LOC: ED 10:44 → 2W 13:43

== ENCOUNTER 2022-08-07 00:06 | Inpatient (IN) ==
[2022-08-07 00:41] LABS: Basophils # (auto) 0.06 K/uL (0-0.2); Basophils % (auto) 0.6 %; Eosinophils # (auto) 0.11 K/uL (0-0.50); Eosinophils % (auto) 1.1 %; Hematocrit (blood only) 37.9 % (40.1-51.0); Hemoglobin 12.5 g/dl (14.0-18.0); Immature Granulocytes # (auto) 0.03 K/uL (0.00-0.02); Immature Granulocytes % (auto) 0.3 %; Lymphocytes # (auto) 1.39 K/uL (1.2-3.4); Lymphocytes % (auto) 13.8 %; Mean Corpuscular Hemoglobin 27.4 pg (25.0-34.0); Mean Corpuscular Volume 82.9 fL (80.0-100.0); Mean Platelet Volume 9.8 fL (9.4-12.4); Monocytes # (auto) 0.65 K/uL (0.24-0.82); Monocytes % (auto) 6.5 %; Neutrophils # (auto) 7.83 K/uL (1.4-6.5); Neutrophils % (auto) 77.7 %; Platelet Count 291 K/uL (130-400); RDW Coefficient of Variation 13.4 % (11.5-14.5); Red Blood Count 4.57 M/uL (4.63-6.08); White Blood Count 10.07 K/ul (4.8-10.8)
[2022-08-07 00:54] LABS: Albumin Globulin Ratio 1.2 (0.9-2); BUN Creatinine Ratio 26.9 (10-20); Bilirubin,Total 0.3 mg/dl (0.2-1.0); Calcium 9.5 mg/dl (8.5-10.1); Creatinine Clr Calc Pharmacy 104.5 ml/min; Est GFR (African American) 109.8 ml/min; Est GFR (Non-African American) 94.7 ml/min; Globulin 3.3 gm/dl (2.5-4.0); Potassium 4.1 mmol/L (3.5-5.1); Total Protein 7.3 gm/dl (6.0-8.3)
[2022-08-07 00:57] LABS: Troponin I High Sensitivity 10.3 pg/ml (0-20)
[2022-08-07 00:58] LABS: Partial Thromboplastin Time 27.9 Seconds (21.0-31.0); Prothrombin Time 10.8 Seconds (9.0-12.0)
--- NOTE | 2022-08-07 01:13 | Emergency Department Note ---
History of Present Illness General Chief complaint: Rectal Bleed Stated complaint: BLOODY STOOL Time Seen by Provider: 08/07/22 01:03 History of Present Illness 67-year-old male presents emergency department with a prior history of diverticular bleed states approximately 6 PM he started with dark stool from rectum. Patient denies left lower quadrant abdominal pain denies hematemesis. Patient states he does have a hemorrhoid. Patient states he has had a colonoscopy every 5 years due to diverticulitis and diverticulosis. Patient is not on any blood thinners. Patient denies any other complaints. There are no other mitigating or alleviating factors Home Medications Medication Instructions Recorded Confirmed Type amlodipine 5 mg tablet 5 mg PO QAM 06/17/19 08/07/22 History azelastine 137 mcg (0.1 %) nasal 1 spray intranasal Q12H 06/17/19 08/07/22 History spray aerosol cetirizine 10 mg tablet 10 mg PO QAM 06/17/19 08/07/22 History fluticasone propionate 50 2 spray intranasal DAILY 06/17/19 08/07/22 History mcg/actuation nasal spray,suspension lisinopril 20 1 tab PO QAM 06/17/19 08/07/22 History mg-hydrochlorothiazide 25 mg tablet loperamide 2 mg capsule (Imodium 2 mg PO Q3H PRN Diarrhea 06/17/19 08/07/22 History A-D) Malcom Salazar #1 ea 07/19/20 09/24/21 Rx Allergies Allergy/AdvReac Type Severity Reaction Status Date / Time bee venom protein (honey bee) Allergy Severe Diffuse Verified 08/07/22 01:09 swelling ibuprofen Allergy Intermediate Hives Verified 08/07/22 01:09 Past Med/Surg History Medical History (Updated 08/07/22 @ 02:04 by Jese Juan DO) Diverticulitis hx GERD (gastroesophageal reflux disease) controlled Hypertension Lung nodules under surveillance Obesity Osteoarthritis Right bundle branch block (RBBB) Surgical History History of cholecystectomy History of colonoscopy History of ear surgery HOLE REPAIRED A CHILD History of endoscopic sinus surgery X 2 History of herniorrhaphy INGUINAL HERNIA History of left knee replacement History of tonsillectomy History of tooth extraction Family History Brother Family history of esophageal cancer Father Family hx of colon cancer Mother Family history of diabetes mellitus Social History Smoking Status: Never smoker Second Hand Exposure: No; Hx Alcohol Use: No Hx Substance Use: No Preferred Language: French Communication Ability: Effective Clearance Coordinator Required: No Beliefs That Will Affect Care: None marital status: Current Living Situation: Spouse Feels Safe at Home: Yes Assistive Devices: None Review of Systems A total of 10 systems reviewed and were otherwise negative Constitutional: no fever Respiratory: no cough Gastrointestinal: + blood in stools; no abdominal pain Physical Exam Vital Signs Vital Signs - 24 hr 08/07/22 00:17 08/07/22 00:17 08/07/22 00:37 Temperature 37 C Temperature Source Oral Pulse Rate 69 Pulse Rate from SpO2 Sensor Respiratory Rate 24 Respiratory Effort / Characteristics Non-Labored Non-Labored Respiratory Depth Normal Normal Blood Pressure 167/100 H Blood Pressure Mean 122 Pulse Oximetry 97 Oxygen Delivery Method Room Air Room Air Sepsis Recent Fever Within 48 Hours No Sepsis New/Unexplained Change in Mental Status No Sepsis Action Taken by Nursing No Action Required 08/07/22 00:15 08/07/22 00:30 08/07/22 00:30 Temperature Temperature Source Pulse Rate 75 65 Pulse Rate from SpO2 Sensor 74 65 Respiratory Rate 24 19 Respiratory Effort / Characteristics Respiratory Depth Blood Pressure 157/77 H Blood Pressure Mean 103 Pulse Oximetry 97 96 Oxygen Delivery Method Sepsis Recent Fever Within 48 Hours Sepsis New/Unexplained Change in Mental Status Sepsis Action Taken by Nursing 08/07/22 02:17 08/07/22 01:00 08/07/22 01:00 Temperature Temperature Source Pulse Rate 65 Pulse Rate from SpO2 Sensor 65 Respiratory Rate 18 Respiratory Effort / Characteristics Non-Labored Respiratory Depth Normal Blood Pressure 163/84 H Blood Pressure Mean 110 Pulse Oximetry 97 Oxygen Delivery Method Sepsis Recent Fever Within 48 Hours Sepsis New/Unexplained Change in Mental Status Sepsis Action Taken by Nursing 08/07/22 01:34 08/07/22 01:34 08/07/22 02:00 Temperature Temperature Source Pulse Rate Pulse Rate from SpO2 Sensor 61 Respiratory Rate Respiratory Effort / Characteristics Respiratory Depth Blood Pressure 177/80 H 154/79 H Blood Pressure Mean 112 104 Pulse Oximetry 95 Oxygen Delivery Method Sepsis Recent Fever Within 48 Hours Sepsis New/Unexplained Change in Mental Status Sepsis Action Taken by Nursing 08/07/22 02:00 08/07/22 02:30 08/07/22 02:30 Temperature Temperature Source Pulse Rate Pulse Rate from SpO2 Sensor 72 57 L Respiratory Rate Respiratory Effort / Characteristics Respiratory Depth Blood Pressure 129/72 Blood Pressure Mean 91 Pulse Oximetry 96 96 Oxygen Delivery Method Sepsis Recent Fever Within 48 Hours Sepsis New/Unexplained Change in Mental Status Sepsis Action Taken by Nursing 08/07/22 02:59 08/07/22 03:00 08/07/22 03:01 Temperature Temperature Source Pulse Rate Pulse Rate from SpO2 Sensor 64 66 Respiratory Rate Respiratory Effort / Characteristics Respiratory Depth Blood Pressure 155/81 H Blood Pressure Mean 105 Pulse Oximetry 98 97 Oxygen Delivery Method Sepsis Recent Fever Within 48 Hours Sepsis New/Unexplained Change in Mental Status Sepsis Action Taken by Nursing GENERAL: Patient is awake alert in no acute distress patient is resting comfortably and showing no signs of anxiety EYES: The conjunctivae are clear. The pupils are round and reactive. EARS, NOSE, MOUTH AND THROAT: The nose is without any evidence of any deformity. Mucous membranes are moist. Tongue is midline. NECK: The neck is nontender and supple. RESPIRATORY: Normal respiratory effort is noted there is no evidence of wheezing rhonchi or rales CARDIOVASCULAR: Regular rate and rhythm noted there no murmurs rubs or gallops normal S1 normal S2. GASTROINTESTINAL: The abdomen is soft. Abdomen is nontender. Rectal exam with unindentured apprentice present there is a hemorrhoid present at the 6 o'clock position that is erythematous but not actively bleeding there is dark blood present at the rectum PELVIS: The Pelvis is stable. No tenderness to palpation is noted. BACK: No midline tenderness or or step-off noted range of motion in flexion extension as well as rotation no signs of muscle spasm noted MUSCULOSKELETAL/EXTREMITIES: There is no evidence of gross deformity full range of motion is noted in the hips and shoulders. SKIN: There is no obvious evidence of any rash. There are no petechiae, pallor or cyanosis noted. NEUROLOGIC: Patient is awake alert and oriented x3 strength is symmetric Course Reevaluation(s) Reevaluation #1: Patient was evaluated for lower GI bleeding had a few episodes of lower GI bleeding in the emergency department but stable vital signs. The case was discussed with the hospitalist for admission Time: :46 Consultations Consultation #1: [facility] hospitalist for admission Time: 02:46 Administered Medications Discontinued Medications Ioversol (Optiray 350 100ml) 100 ml IV ONCE ONE Stop: 08/07/22 01:35 Last Admin: 08/07/22 01:34 Dose: 86 ml Documented By: JARED Medical Decision Making Medical Records Attestation: I reviewed the patient's medical records. Home Medications Current Medication List: was personally reviewed by me Laboratory Data Attestation: I reviewed the patient's lab results. Result diagrams: 08/07/22 00:20 08/07/22 00:20 Lab Results 08/07/22 08/07/22 08/07/22 Range/Units 00:20 00:20 00:20 WBC 10.07 (4.8-10.8) K/ul RBC 4.57 L (4.63-6.08) M/uL Hgb 12.5 L (14.0-18.0) g/dl Hct 37.9 L (40.1-51.0) % MCV 82.9 (80.0-100.0) fL MCH 27.4 (25.0-34.0) pg MCHC 33.0 (32.0-36.0) g/dL RDW Std Deviation 40.0 (36.4-46.3) fL RDW Coeff of Neha 13.4 (11.5-14.5) % Plt Count 291 (130-400) K/uL MPV 9.8 (9.4-12.4) fL Immature Gran % (Auto) 0.3 % Neut % (Auto) 77.7 % Lymph % (Auto) 13.8 % Mcdonough % (Auto) 6.5 % Eos % (Auto) 1.1 % Baso % (Auto) 0.6 % Neut # (Auto) 7.83 H (1.4-6.5) K/uL Lymph # (Auto) 1.39 (1.2-3.4) K/uL Mcdonough # (Auto) 0.65 (0.24-0.82) K/uL Eos # (Auto) 0.11 (0-0.50) K/uL Baso # (Auto) 0.06 (0-0.2) K/uL Immature Gran # (Auto) 0.03 H (0.00-0.02) K/uL PT 10.8 (9.0-12.0) Seconds INR 1.0 (0.9-1.1) APTT 27.9 (21.0-31.0) Seconds PTT Ratio 1.0 Sodium 141 (136-145) mmol/L Potassium 4.1 (3.5-5.1) mmol/L Chloride 106 (98-107) mmol/L Carbon Dioxide 27 (21-32) mmol/L Anion Gap 8 (3-11) BUN 21 (6-23) mg/dl Creatinine 0.78 (0.6-1.4) mg/dl Est Cr Clr Drug Dosing 104.5 ml/min Est GFR ( Amer) 109.8 ml/min Est GFR (Non-Af Amer) 94.7 ml/min BUN/Creatinine Ratio 26.9 H (10-20) Glucose 123 H (70-99(Fasting)) mg/dl Calcium 9.5 (8.5-10.1) mg/dl Total Bilirubin 0.3 (0.2-1.0) mg/dl AST 23 (13-39) U/L ALT 15 (7-52) U/L Alkaline Phosphatase 55 (34-104) U/L Troponin I High Sens 10.3 (0-20) pg/ml Total Protein 7.3 (6.0-8.3) gm/dl Albumin 4.0 (3.4-5.0) gm/dl Globulin 3.3 (2.5-4.0) gm/dl Albumin/Globulin Ratio 1.2 (0.9-2) POC Stool Occult Blood (Negative) SARS-CoV-2, RNA, NAAT (NEGATIVE) Blood Type Antibody Screen 08/07/22 08/07/22 08/07/22 Range/Units 00:39 01:17 02:39 WBC (4.8-10.8) K/ul RBC (4.63-6.08) M/uL Hgb (14.0-18.0) g/dl Hct (40.1-51.0) % MCV (80.0-100.0) fL MCH (25.0-34.0) pg MCHC (32.0-36.0) g/dL RDW Std Deviation (36.4-46.3) fL RDW Coeff of Neha (11.5-14.5) % Plt Count (130-400) K/uL MPV (9.4-12.4) fL Immature Gran % (Auto) % Neut % (Auto) % Lymph % (Auto) % Mcdonough % (Auto) % Eos % (Auto) % Baso % (Auto) % Neut # (Auto) (1.4-6.5) K/uL Lymph # (Auto) (1.2-3.4) K/uL Mcdonough # (Auto) (0.24-0.82) K/uL Eos # (Auto) (0-0.50) K/uL Baso # (Auto) (0-0.2) K/uL Immature Gran # (Auto) (0.00-0.02) K/uL PT (9.0-12.0) Seconds INR (0.9-1.1) APTT (21.0-31.0) Seconds PTT Ratio Sodium (136-145) mmol/L Potassium (3.5-5.1) mmol/L Chloride (98-107) mmol/L Carbon Dioxide (21-32) mmol/L Anion Gap (3-11) BUN (6-23) mg/dl Creatinine (0.6-1.4) mg/dl Est Cr Clr Drug Dosing ml/min Est GFR ( Amer) ml/min Est GFR (Non-Af Amer) ml/min BUN/Creatinine Ratio (10-20) Glucose (70-99(Fasting)) mg/dl Calcium (8.5-10.1) mg/dl Total Bilirubin (0.2-1.0) mg/dl AST (13-39) U/L ALT (7-52) U/L Alkaline Phosphatase (34-104) U/L Troponin I High Sens (0-20) pg/ml Total Protein (6.0-8.3) gm/dl Albumin (3.4-5.0) gm/dl Globulin (2.5-4.0) gm/dl Albumin/Globulin Ratio (0.9-2) POC Stool Occult Blood Positive A (Negative) SARS-CoV-2, RNA, NAAT NEGATIVE (NEGATIVE) Blood Type O Positive Antibody Screen NEGATIVE Imaging Data Radiologist's Impression: CT per radiology states colonic diverticulosis without diverticulitis MDM Narrative Medical decision making differential diagnosis lower GI bleed diverticular bleed diverticulitis hemorrhoid anemia occult cancer. Plan is to check labs, CT Patient was evaluated for lower GI bleeding likely I suspect diverticular bleed; patient's stable not anemic, the case was discussed with the hospitalist for admission from [facility] Impression & Plan Lower gastrointestinal hemorrhage, Diverticulosis Discharge Plan Visit Data Chief Complaint: Rectal Bleed Stated Complaint: BLOODY STOOL ED Provider: Jese Juan Discharge Problem: Lower gastrointestinal hemorrhage, Diverticulosis Patient Disposition: Being Evaluated by Hospitalist
[2022-08-07] MEDS ORDERED: OPTIRAY 350 100ml IV ONE (01:34)
--- NOTE | 2022-08-07 04:57 | History and Physical Report ---
DATE OF ADMISSION: 08/07/2022. CHIEF COMPLAINT: Rectal bleed. HISTORY OF PRESENT ILLNESS: A 67-year-old male with past medical history significant for hyperlipidemia, prediabetes, chronic sinusitis, allergic rhinitis, pulmonary venous hypertension, history of diverticulosis of colon, history of irritable bowel syndrome, history of COVID-19, history of toxic effect of venom, status post left total knee replacement, presents with rectal bleed. The patient states since yesterday evening 6:30 p.m., he started to have several episodes of bloody bowel movements. Denies any abdominal pain. He says he had similar bleed 5 years ago. His gets colonoscopy every 5 years.His colonoscopy in 2017 showed diverticulosis. Denies any chest pain, no shortness of breath, no nausea, no vomiting. Normal bladder movements. No hematuria, no headache, no blurred visions, no earache, no runny nose, no sore throat. He has occasional cough. Appetite is okay. No recent weight gain, weight loss. Ambulates and climbs steps okay. Currently, resting comfortably and hemodynamically stable.Patient says he takes Aleve for his knee pain ALLERGIES: BEE VENOM, IBUPROFEN. PAST MEDICAL HISTORY: As mentioned above. PAST SURGICAL HISTORY: Left total knee arthroplasty, colonoscopy, tonsillectomy, cholecystectomy, inguinal hernia repair, sinus surgery. MEDICATIONS: The patient is on amlodipine 5 mg p.o. a.m., azelastine 1 spray intranasal b.i.d., cetirizine 10 mg p.o. a.m., Flonase 2 sprays intranasal daily, lisinopril/hydrochlorothiazide 20/25 mg 1 tablet p.o. daily, Imodium p.r.n. and he also takes Tylenol as needed. The patient states he is also taking Aleve as needed daily. FAMILY HISTORY: Significant for brother had esophageal cancer, father had colon cancer and hypertension; mother had diabetes, heart disorder. SOCIAL HISTORY: , no smoking. Alcohol occasional. No drug use. REVIEW OF SYSTEMS: As per HPI. Rest of the review of systems is negative. PHYSICAL EXAMINATION: GENERAL: The patient is of moderate build, not in acute distress. VITAL SIGNS: Temperature 37, pulse 65, respiratory rate 18, blood pressure 154/79, oxygen 96% on room air. HEENT: Pupils equal, round and reactive to light. Oral mucosa moist. NECK: No JVD or neck masses. CARDIOVASCULAR: S1 and S2 heard. Regular rate and rhythm. No murmur, no gallop. RESPIRATORY SYSTEM: Normal AP diameter. No accessory muscle use. No wheezing, no crackles. ABDOMEN: Soft, bowel sounds present, nontender, no distention. CENTRAL NERVOUS SYSTEM: Cranial nerves II-XII grossly intact, nonfocal. EXTREMITIES: No edema, no erythema. LABORATORY DATA: WBC 10.07, hemoglobin 12.5, hematocrit 37.9, platelets 291. PT 10.8, INR 1, APTT 27.9. Sodium 141, potassium 4.1, chloride 106, bicarb 27, BUN 21, creatinine 0.78, serum glucose 123, calcium 9.5, total bilirubin 0.3, AST 23, ALT 15, alkaline phosphatase 55. Troponin I high sensitivity 10.3. Stool occult blood positive. SARS-CoV-2 rapid test negative. IMAGING DATA: CT abdomen and pelvis preliminary report shows diverticulosis. Chest x-ray, no acute findings. EKG: Normal sinus rhythm with rate of 65, right bundle-branch block. ASSESSMENT AND PLAN: This is a 67-year-old male who presents with rectal bleed. 1. Rectal Bleed. History of rectal bleed in the past. Colonoscopy showed diverticulosis and today CAT scan showing diverticulosis, no abdominal pain, most likely diverticular bleed. Hemodynamically stable. Hemoglobin is 12.5. He is still getting bloody bowel movements. Blood consent obtained. We will follow H and H q. 6 hours. We will keep him n.p.o., IV fluids. Consult GI. Closely monitor in tele floor. 2. History of hypertension: Continue his home medication, amlodipine and lisinopril and hydrochlorothiazide. Monitor the blood pressure. 3. Deep venous thrombosis prophylaxis: Sequential compression devices. DISPOSITION: Closely monitor in the tele floor. Level 1 full code. Expect to discharge home and follow with family doctor. Job ID: [id number] [facility]
[2022-08-07] MEDS ORDERED: NITROGLYCERIN SL 0.4 MG/TAB TAB SL PRN (05:02)
[2022-08-07] MEDS ORDERED: ACETAMINOPHEN 325 MG TAB PO PRN (05:02)
[2022-08-07] MEDS ORDERED: PNEUMOCOCCAL POLYSACCHARIDES 25 MCG/0.5 ML VIAL/SYR IM ONE (05:24)
[2022-08-07] MEDS ORDERED: INFLUENZA VACCINE HIGH DOSE PF 65+ 0.7 ML SYR IM ONE (05:24)
[2022-08-07 07:17] LABS: Basophils # (auto) 0.05 K/uL (0-0.2); Basophils % (auto) 0.5 %; Eosinophils # (auto) 0.06 K/uL (0-0.50); Eosinophils % (auto) 0.6 %; Hematocrit (blood only) 36.9 % (40.1-51.0); Hemoglobin 12.1 g/dl (14.0-18.0); Immature Granulocytes # (auto) 0.05 K/uL (0.00-0.02); Immature Granulocytes % (auto) 0.5 %; Lymphocytes # (auto) 1.28 K/uL (1.2-3.4); Lymphocytes % (auto) 13.8 %; Mean Corpuscular Hemoglobin 27.3 pg (25.0-34.0); Mean Corpuscular Hgb Conc 32.8 g/dL (32.0-36.0); Mean Corpuscular Volume 83.1 fL (80.0-100.0); Mean Platelet Volume 9.3 fL (9.4-12.4); Monocytes # (auto) 0.51 K/uL (0.24-0.82); Monocytes % (auto) 5.5 %; Neutrophils # (auto) 7.31 K/uL (1.4-6.5); Neutrophils % (auto) 79.1 %; Platelet Count 277 K/uL (130-400); RDW Coefficient of Variation 13.4 % (11.5-14.5); RDW Standard Deviation 40.5 fL (36.4-46.3); Red Blood Count 4.44 M/uL (4.63-6.08); White Blood Count 9.26 K/ul (4.8-10.8)
[2022-08-07] MEDS: SODIUM CHLORIDE 0.9% 1000ML 1,000 ML IV SCH ×2 (07:18→15:34)
[2022-08-07] MEDS: AZELASTINE HCL 0.1% NASAL 200 SPRAYS/27,400 MCG BTL SCH ×2 (08:06→20:42)
[2022-08-07] MEDS: CETIRIZINE HCL 10 MG TABLET PO SCH (08:06)
[2022-08-07] MEDS: LISINOPRIL/HCTZ 20/25MG 1 TAB PO SCH (08:06)
[2022-08-07] MEDS: amLODIPine BESYLATE 5 MG TAB PO SCH (08:06)
[2022-08-07] MEDS: FLUTICASONE PROPIONATE NA SPR 16 GM BTL SCH (08:07)
[2022-08-07 08:08] LABS: BUN Creatinine Ratio 29.4 (10-20); Calcium 9.3 mg/dl (8.5-10.1); Creatinine Clr Calc Pharmacy 119.9 ml/min; Est GFR (African American) 116.2 ml/min; Est GFR (Non-African American) 100.2 ml/min; Magnesium 1.7 mg/dl (1.7-2.4); Potassium 3.8 mmol/L (3.5-5.1)
[2022-08-07] MEDS: PANTOprazole 40 MG in SYRINGE 0 ML IV SCH ×2 (08:32→20:50)
--- NOTE | 2022-08-07 08:44 | CT Scan Report ---
ABDOMEN AND PELVIS CT WITH IV CONTRAST CT DOSE: 719.10 mGy.cm HISTORY: Left lower quadrant pain. diverticular bleeding TECHNIQUE: Multiaxial CT images of the abdomen and pelvis were performed following the use of intrave nous contrast. A dose lowering technique was utilized adhering to the principles of ALARA. COMPARISON STUDY: Abdomen and pelvis CT 07/19/2017. FINDINGS: There are few scattered calcified and noncalcified pulmonary nodules seen within the lung b ases. The dominant 7 mm nodule within the right lower lobe on image 67 remains stable and is therefor e considered to be benign. The additional pulmonary nodules or not included on the prior study. Mild bilateral gynecomastia again noted. Mild mediastinal and bilateral hilar lymphadenopathy is similar t o the prior study. Dominant distal right paratracheal lymph node measures 12 mm in short axis diamete r. No pneumoperitoneum. No pneumatosis. Mild hepatic steatosis. Cholecystectomy. The spleen, adrenal glands, and pancreas are unremarkable. A few hypodense lesions within the kidneys favor cysts. No hyd ronephrosis. The main portal vein is patent. Normal caliber abdominal aorta. No retroperitoneal lymph adenopathy. No pelvic lymphadenopathy. The bladder is decompressed but appears unremarkable. There is a small fat-containing left inguinal hernia. No evidence for bowel obstruction. Normal appendix. Col onic diverticulosis. Questionable thickening of the junction of the descending colon/sigmoid colon is likely due to underdistention. An early acute diverticulitis is considered less likely but not entir shawna excluded. IMPRESSION: 1. Questionable thickening at the junction of the descending colon/sigmoid colon is likely due to und erdistention. An early acute diverticulitis is considered less likely but not entirely excluded. 2. Normal appendix. 3. Cholecystectomy. 4. No significant change in the visualized mediastinal and bilateral hilar lymphadenopathy with scatt ered subcentimeter pulmonary nodules. This is nonspecific but could be due to a chronic process such as sarcoidosis. Clinical correlation recommended. 5. This report was called/faxed to the emergency department following dictation. ACT 112: Negative or not required by law. Electronically signed by: Deepak Bean M.D. 08/07/2022 8:42 AM
--- NOTE | 2022-08-07 09:19 | XRay Report ---
XR chest 1V portable HISTORY: Shortness of breath. Rectal bleeding. COMPARISON: Chest 09/24/2021. FINDINGS: There are low lung volumes. Mild elevation of the right hemidiaphragm, unchanged. The heart is mildly enlarged. No new focal lung consolidations to suggest a pneumonia. No evidence for pulmona ry edema. No pleural effusions. No pneumothorax. IMPRESSION: Mild cardiomegaly. Otherwise, no acute process within the chest. ACT 112: Negative or not required by law. Electronically signed by: Deepak Bean M.D. 08/07/2022 9:17 AM
[2022-08-07] MEDS ORDERED: bisacodyL 5 MG TABEC PO ONE (10:15)
[2022-08-07] MEDS ORDERED: LAVAGE SOLUTION 4000ML PO SCH (10:30)
--- NOTE | 2022-08-07 10:55 | Electrocardiogram Report ---
Test Reason : Blood Pressure : / mmHG Vent. Rate : 065 BPM Atrial Rate : 065 BPM P-R Int : 174 ms QRS Dur : 138 ms QT Int : 432 ms P-R-T Axes : -12 -08 000 degrees QTc Int : 449 ms Normal sinus rhythm Right bundle branch block Abnormal ECG When compared with ECG of 24-SEP-2021 11:03, QRS duration has increased Confirmed by Felipe Nance ([id number]) on 08/07/2022 10:54:47 AM Referred By: REFERRED SELF Confirmed By:Clem Nance
--- NOTE | 2022-08-07 11:34 | Gastrointestinal Consultation ---
Date of Consultation August 07, 2022 Assessment & Plan (1) Lower gastrointestinal hemorrhage: Plan for colonoscopy Clear liquids today prep tonight continue to support hemodynamics Call with questions History of Present Illness Reason for Consultation: Rectal Bleeding Attending Physician: Vijay Biggs MD History of Present Illness This is a 67 yo presenting for c/o of painless rectal bleeding. Apparently yesterday afternoon he began to have painless rectal bleeding 6-8 times. He did not have symptoms of orthostasis, chest pain, lightheadedness or abdominal pain or fevers or chills. He had a similar presentation in 2017 at which time he underwent a colonoscopy that showed diverticular disease without other etiologies. He has not had any recent antibiotics, no recent NSAIDs, no melena has been noted no hematemesis. Upon presentation here hemoglobin was 12.5 this morning is 12.1. He has had 1 evidenced Bowel movement since has been here. He feels well and is not having any complaints at this time. ABDOMEN AND PELVIS CT WITH IV CONTRAST CT DOSE: 719.10 mGy.cm HISTORY: Left lower quadrant pain. diverticular bleeding TECHNIQUE: Multiaxial CT images of the abdomen and pelvis were performed following the use of intravenous contrast. A dose lowering technique was utilized adhering to the principles of ALARA. COMPARISON STUDY: Abdomen and pelvis CT 07/19/2017. FINDINGS: There are few scattered calcified and noncalcified pulmonary nodules seen within the lung bases. The dominant 7 mm nodule within the right lower lobe on image 67 remains stable and is therefore considered to be benign. The additional pulmonary nodules or not included on the prior study. Mild bilateral gynecomastia again noted. Mild mediastinal and bilateral hilar lymphadenopathy is similar to the prior study. Dominant distal right paratracheal lymph node measures 12 mm in short axis diameter. No pneumoperitoneum. No pneumatosis. Mild hepatic steatosis. Cholecystectomy. The spleen, adrenal glands, and pancreas are unremarkable. A few hypodense lesions within the kidneys favor cysts. No hydronephrosis. The main portal vein is patent. Normal caliber abdominal aorta. No retroperitoneal lymphadenopathy. No pelvic lymphadenopathy. The bladder is decompressed but appears unremarkable. There is a small fat-containing left inguinal hernia. No evidence for bowel obstruction. Normal appendix. Colonic diverticulosis. Questionable thickening of the junction of the descending colon/sigmoid colon is likely due to underdistention. An early acute diverticulitis is considered less likely but not entirely excluded. IMPRESSION: 1. Questionable thickening at the junction of the descending colon/sigmoid colon is likely due to underdistention. An early acute diverticulitis is considered less likely but not entirely excluded. 2. Normal appendix. 3. Cholecystectomy. 4. No significant change in the visualized mediastinal and bilateral hilar lymphadenopathy with scattered subcentimeter pulmonary nodules. This is nonspecific but could be due to a chronic process such as sarcoidosis. Clinical correlation recommended. 5. This report was called/faxed to the emergency department following dictation. Allergies Allergy/AdvReac Type Severity Reaction Status Date / Time bee venom protein (honey bee) Allergy Severe Diffuse Verified 08/07/22 01:09 swelling ibuprofen Allergy Intermediate Hives Verified 08/07/22 01:09 Home Medications Medication Instructions Recorded Confirmed Type amlodipine 5 mg tablet 5 mg PO QAM 06/17/19 08/07/22 History azelastine 137 mcg (0.1 %) nasal 1 spray intranasal Q12H 06/17/19 08/07/22 History spray aerosol cetirizine 10 mg tablet 10 mg PO QAM 06/17/19 08/07/22 History fluticasone propionate 50 2 spray intranasal DAILY 06/17/19 08/07/22 History mcg/actuation nasal spray,suspension lisinopril 20 1 tab PO QAM 06/17/19 08/07/22 History mg-hydrochlorothiazide 25 mg tablet loperamide 2 mg capsule (Imodium 2 mg PO Q3H PRN Diarrhea 06/17/19 08/07/22 History A-D) Malcom Salazar #1 ea 07/19/20 09/24/21 Rx Patient History Medical History Diverticulitis hx GERD (gastroesophageal reflux disease) controlled Hypertension Lung nodules under surveillance Obesity Osteoarthritis Right bundle branch block (RBBB) Surgical History History of cholecystectomy History of colonoscopy History of ear surgery HOLE REPAIRED A CHILD History of endoscopic sinus surgery X 2 History of herniorrhaphy INGUINAL HERNIA History of left knee replacement History of tonsillectomy History of tooth extraction Family History Brother Family history of esophageal cancer Father Family hx of colon cancer Mother Family history of diabetes mellitus Social History Smoking Status: Never smoker Second Hand Exposure: No; Hx Alcohol Use: No Hx Substance Use: No Preferred Language: Tajik Communication Ability: Effective [employer] Attendant Required: No Beliefs That Will Affect Care: Hinduism marital status: Current Living Situation: Spouse Feels Safe at Home: Yes Safety Concerns: Feels Safe At This Time Assistive Devices: None Review of Systems Review of Systems: All systems reviewed & are unremarkable except as noted in HPI & below Results & Data ([facility]) Vital Signs (Past 12 Hours) Vital Signs Temp Pulse Pulse Resp BP BP Pulse Ox 08/07/22 11:10 70 18 179/84 H 97 08/07/22 10:26 78 20 135/77 98 08/07/22 08:11 85 20 152/79 H 95 08/07/22 05:18 37.1 C 08/07/22 04:00 94 08/07/22 04:00 147/75 H 08/07/22 03:30 96 08/07/22 03:30 138/75 08/07/22 03:01 97 08/07/22 03:00 155/81 H 08/07/22 02:59 98 08/07/22 02:30 96 08/07/22 02:30 129/72 08/07/22 02:00 96 08/07/22 02:00 154/79 H 08/07/22 01:34 95 08/07/22 01:34 177/80 H 08/07/22 01:00 65 18 97 08/07/22 01:00 163/84 H 08/07/22 00:30 65 19 96 08/07/22 00:30 157/77 H 08/07/22 00:15 75 24 97 08/07/22 00:37 08/07/22 00:17 37 C 69 24 167/100 H 97 O2 Del Method 08/07/22 11:10 Room Air 08/07/22 10:26 08/07/22 08:11 08/07/22 05:18 08/07/22 04:00 08/07/22 04:00 08/07/22 03:30 08/07/22 03:30 08/07/22 03:01 08/07/22 03:00 08/07/22 02:59 08/07/22 02:30 08/07/22 02:30 08/07/22 02:00 08/07/22 02:00 08/07/22 01:34 08/07/22 01:34 08/07/22 01:00 08/07/22 01:00 08/07/22 00:30 08/07/22 00:30 08/07/22 00:15 08/07/22 00:37 Room Air 08/07/22 00:17 Room Air
[2022-08-07 14:27] LABS: Hematocrit (blood only) 34.5 % (40.1-51.0); Hemoglobin 11.4 g/dl (14.0-18.0)
--- NOTE | 2022-08-07 15:00 | Communication Note ---
Date of Service: August 07, 2022 Patient seen and examined in the emergency department. Is comfortably lying on the bed; not in any distress. Denies any abdominal pain, discomfort. Had episode of bright red blood per rectum in the morning On examination Is hemodynamically stable; afebrile. He is alert oriented x3 Chestbilateral vesicular breath sound Abdomensoft, nontender, bowel sound present Neurogrossly intact Assessment/plan Lower GI bleed; likely diverticular bleed: -Monitor hemodynamics. Continue on IV fluid at 75 mL/h. Monitor H&H every 6 hours. -Clear liquid diet and bowel prep for colonoscopy tomorrow.
[2022-08-07 18:02] LABS: Hemoglobin 11.5 g/dl (14.0-18.0)
[2022-08-08 00:38] LABS: Hematocrit (blood only) 32.3 % (40.1-51.0); Hemoglobin 10.8 g/dl (14.0-18.0)
[2022-08-08] MEDS ORDERED: SODIUM CHLORIDE 0.9% 1,000 ML IV SCH (02:00)
--- NOTE | 2022-08-08 08:27 | Anesthesiology Consultation ---
Date of Service August 08, 2022 Assessment & Plan (1) Encounter for pre-operative examination: History Surgery Operation Date: 08/08/22 16:00 Proposed Procedures p Colonoscopy Dr Cuba - Frandy Cuba MD Height/Weight Height: 5 ft 6.5 in Weight: 94.4 kg Allergies Allergy/AdvReac Type Severity Reaction Status Date / Time bee venom protein (honey bee) Allergy Severe Diffuse Verified 08/08/22 08:20 swelling ibuprofen Allergy Intermediate Hives Verified 08/08/22 08:20 Medications Home Medications Medication Instructions Recorded Confirmed Last Taken amlodipine 5 mg tablet 5 mg PO QAM 06/17/19 08/07/22 08/06/22 azelastine 137 mcg (0.1 %) nasal 1 spray intranasal Q12H 06/17/19 08/07/22 08/06/22 spray aerosol cetirizine 10 mg tablet 10 mg PO QAM 06/17/19 08/07/22 08/06/22 fluticasone propionate 50 2 spray intranasal DAILY 06/17/19 08/07/22 08/06/22 mcg/actuation nasal spray,suspension lisinopril 20 1 tab PO QAM 06/17/19 08/07/22 08/06/22 mg-hydrochlorothiazide 25 mg tablet loperamide 2 mg capsule (Imodium 2 mg PO Q3H PRN Diarrhea 06/17/19 08/07/22 Unknown A-D) Malcom Salazar #1 ea 07/19/20 09/24/21 Unknown Active Medications Generic Name Dose Route Start Last Admin Trade Name Freq PRN Reason Stop Dose Admin Amlodipine Besylate 5 mg 08/07/22 09:00 08/07/22 08:06 Amlodipine Besylate 5 Mg Tab PO 09/06/22 08:59 5 mg QAM JORDEN Administration Azelastine HCl 1 sprays 08/07/22 09:00 08/07/22 20:42 Azelastine Hcl 0.1% Nasal 200 Sprays/27,400 Mcg Btl NA 09/06/22 08:59 1 sprays Q12H JORDEN Administration Cetirizine HCl 10 mg 08/07/22 09:00 08/07/22 08:06 Cetirizine Hcl 10 Mg Tablet PO 09/06/22 08:59 10 mg QAM JORDEN Administration Fluticasone Propionate 2 sprays 08/07/22 09:00 08/07/22 08:07 Fluticasone Propionate Na Spr 16 Gm Btl NA 09/06/22 08:59 2 sprays DAILY JORDEN Administration Lisinopril/HCTZ 1 tab 08/07/22 09:00 08/07/22 08:06 Lisinopril/Hctz 20/25mg 1 Tab PO 09/06/22 08:59 1 tab QAM JORDEN Administration Pantoprazole Sodium 40 mg/ 10 mls @ 5 mls/min 08/07/22 08:30 08/07/22 20:50 Syringe IV 09/06/22 08:29 5 mls/min BID JORDEN Administration Sodium Chloride 1,000 mls @ 75 mls/hr 08/08/22 02:00 08/08/22 02:02 Nss IV 09/07/22 01:59 75 mls/hr .[id number] JORDEN Administration NPO Date Last Intake of Fluids: 08/07/22 Time Last Intake of Fluids: 22:30 Date Last Intake of Solids: 08/06/22 Time Last Intake of Solids: 17:30 Past Medical History Medical History (Updated 08/08/22 @ 08:27 by Leora Chiang MD) Diverticulitis hx GERD (gastroesophageal reflux disease) controlled Hypertension Lung nodules under surveillance Obesity Osteoarthritis Right bundle branch block (RBBB) Past Family History Family History Brother Family history of esophageal cancer Father Family hx of colon cancer Mother Family history of diabetes mellitus Past Surgical History Surgical History History of cholecystectomy History of colonoscopy History of ear surgery HOLE REPAIRED A CHILD History of endoscopic sinus surgery X 2 History of herniorrhaphy INGUINAL HERNIA History of left knee replacement History of tonsillectomy History of tooth extraction Social History Smoking Status: Never smoker Hx Alcohol Use: No Hx Substance Use: No substance use type: does not use Physical Exam Vital Signs Last Vital Signs Temp 36.8 C 08/08/22 08:21 Pulse 80 08/08/22 08:21 Resp 18 08/08/22 08:21 BP 177/84 H 08/08/22 08:21 Pulse Ox 98 08/08/22 08:21 O2 Del Method 08/08/22 08:21 Testing Laboratory Results 08/08/22 00:18 08/07/22 06:53 PT 10.8 Seconds (9.0-12.0) 08/07/22 00:20 INR 1.0 (0.9-1.1) 08/07/22 00:20 APTT 27.9 Seconds (21.0-31.0) 08/07/22 00:20 Blood Type O Positive 08/07/22 00:39 Antibody Screen NEGATIVE 08/07/22 00:39
[2022-08-08 08:42] LABS: Hematocrit (blood only) 33.6 % (40.1-51.0); Hemoglobin 11.3 g/dl (14.0-18.0)
[2022-08-08] MEDS ORDERED: PROPOFOL IV EMULSION 10 MG/ML 20 ML VIAL IV ONE (08:42)
--- NOTE | 2022-08-08 08:42 | Gastroenterology Progress Note ---
Date of Service August 08, 2022 Assessment & Plan (1) Lower gastrointestinal hemorrhage: Plan: Plan for colonoscopy further recs after Call with questions Admission and Anticipated Discharge Date Admission Date: August 07, 2022 Subjective feels well, prep clear, minimal blood Physical Exam Constitutional: + obese ENMT: Mouth: + dentition abnormality (multiple missing) Mallampati Class: II Neck: normal visual inspection Respiratory: normal respiratory effort Auscultation: lungs clear to auscultation bilaterally Cardiovascular: Rate/Rhythm: regular rate and regular rhythm Psychiatric: Orientation: alert and oriented x 3 Results & Data ([facility]) Vital Signs (Past 12 Hours) Vital Signs Temp Pulse Pulse Resp BP BP Pulse Ox 08/08/22 08:21 36.8 C 80 18 177/84 H 98 08/08/22 07:19 37 C 69 18 148/83 H 95 08/08/22 03:00 36.8 C 73 18 135/72 94 08/08/22 00:46 69 08/07/22 22:52 36.7 C 71 18 132/73 94 O2 Del Method 08/08/22 08:21 Room Air 08/08/22 07:19 Room Air 08/08/22 03:00 Room Air 08/08/22 00:46 08/07/22 22:52 Room Air
[2022-08-08] MEDS ORDERED: fentaNYL citrate 100 MCG/2 ML VIAL ONE (08:43)
[2022-08-08] MEDS ORDERED: MIDAZOLAM HCL 1 MG/ML 2ML VIAL ONE (08:43)
--- NOTE | 2022-08-08 09:07 | GI REPORT ---
Patient Name: Harjinder Tamayo Procedure Date: 08/08/2022 8:25 AM Date of : 1955 Admit Type: Inpatient Age: 67 Gender: Male Attending MD: Frandy Cuba MD Procedure: Colonoscopy Providers: Frandy Cuba MD Referring MD: Vijay Biggs Md Indications: Rectal bleeding Medicines: Monitored Anesthesia Care Complications: No immediate complications. Estimated blood loss: None. Estimated Blood Loss: Estimated blood loss: none. Procedure: Pre-Anesthesia Assessment: - Pre-Anesthesia Assessment: - Prior to the procedure, a History and Physical was performed, and patient medications, allergies and sensitivities were reviewed. The patient's tolerance of previous anesthesia was reviewed. Please see [employer] for complete details. - The risks and benefits of the procedure and the sedation options and risks were discussed with the patient. All questions were answered and informed consent was obtained. - Patient identification and proposed procedure were verified prior to the procedure by the physician and the nurse. The procedure was verified in the pre-procedure area in the procedure room. After obtaining informed consent, the endoscope was passed carefully and meticuously under direct vision and only advanced when the lumen was clearly identified, C02 insuflation was utilized throughout the entirity of the procedure. Throughout the procedure, the patient's blood pressure, pulse, and oxygen saturations were monitored continuously. After I obtained informed consent, the scope was passed under direct vision. Throughout the procedure, the patient's blood pressure, pulse, and oxygen saturations were monitored continuously. The Colonoscope was introduced through the anus and advanced to the cecum, identified by appendiceal orifice and ileocecal valve. The colonoscopy was performed without difficulty. The patient tolerated the procedure well. The quality of the bowel preparation was poor. Findings: The terminal ileum appeared normal. Noted green/yellow stool A large amount of extensive amounts of stool was found in the entire colon, with yellow stool and without any evidence of blood noted in the colon. Was not of quality to evaluate for small polyps External and internal hemorrhoids were found. The hemorrhoids were large. Likely self limited diverticular bleed Impression: - Preparation of the colon was poor. - The examined portion of the ileum was normal. - Stool in the entire examined colon. - External and internal hemorrhoids. - No specimens collected. Recommendation: - [facility]. - Advance diet as tolerated. - Will need repeat Colonoscopy for screening purposes as outpatient. Frandy Cuba MD 08/08/2022 9:07:09 AM This report has been signed electronically. Note Initiated On: 08/08/2022 8:25 AM Number of Addenda: 0 I attest to the content of the Intraoperative Record and orders documented therein, exceptions below {[id number]}
[2022-08-08] MEDS: PANTOprazole 40 MG in SYRINGE 0 ML IV SCH (10:00)
[2022-08-08] MEDS: amLODIPine BESYLATE 5 MG TAB PO SCH (10:25)
[2022-08-08] MEDS: FLUTICASONE PROPIONATE NA SPR 16 GM BTL SCH (10:27)
[2022-08-08] MEDS: CETIRIZINE HCL 10 MG TABLET PO SCH (10:28)
--- NOTE | 2022-08-08 10:29 | Hospitalist Progress Note ---
Date of Service August 08, 2022 Assessment & Plan (1) Lower gastrointestinal hemorrhage: (2) Diverticulosis: (3) Diverticular hemorrhage: Plan Patient presented with bright red blood per rectum which was painless. History of similar presentation in the past CT abdomen showed diverticulosis. Hemoglobin 12.5 on admission; slightly down trended to 11 today. Colonoscopy today shows poor preparation; no active site of bleeding. Plan; -We will monitor for any signs of rebleeding again. Obtain hemoglobin at 6 PM today. -Advance diet as tolerated as per GI -Likely DC in a.m. if he continues to have stable hemoglobin and no signs of rebleeding. Chronic conditions History of hypertension:Continue amlodipine. Holding of lisinopril hydrochlorothiazide today his blood pressure is slightly on the lower side. Deep venous thrombosis prophylaxis: Sequential compression devices. Admission and Anticipated Discharge Date Admission Date: August 07, 2022 Subjective Patient seen and examined after colonoscopy. He is comfortably sitting up on the bed; not in any distress. Colonoscopy did not reveal any active bleeding. Patient reports brown stool last evening. Review of Systems Review of Systems: All systems reviewed & are unremarkable except as noted in Subjective Physical Exam Physical Exam: Constitutional: WD/WN, vitals as above, NAD, sitting up in bed, pleasant, conversing easily Respiratory: normal respiratory effort, lungs clear to auscultation, no wheeze, rales, rhonchi. Normal insp/exp effort, no accessory muscle use Cardiovascular: RRR, no murmur, no edema Vessels: no JVD or carotid bruit Chest: normal inspection of chest Abdomen: normal bowel sounds, soft, nontender, no hepatosplenomegaly Musculoskeletal: no cyanosis or clubbing, extremities motor strength 5/5 Skin: no rashes, warm and dry normal turgor Neurologic: PERRL, EOMI, accommodation nl, no face palsy, no dysarthria CN's II- XI intact bilaterally and moves all extremities Psychiatric: A+Ox3, euthymic affect Lymphatic: no cervical or axillary lymphadenopathy : deferred Results & Data Results & Data ([facility]) Vital Signs (Past 12 Hours) Vital Signs Temp Pulse Pulse Pulse Resp BP BP 08/08/22 10:16 61 17 132/78 08/08/22 10:00 36.5 C 62 18 128/73 08/08/22 09:45 36.8 C 74 18 119/67 11/01/22 09:34 67 16 114/60 08/08/22 09:19 70 16 107/47 L 08/08/22 09:04 69 14 91/55 L 08/08/22 08:00 80 08/08/22 08:21 36.8 C 80 18 177/84 H 08/08/22 07:19 37 C 69 18 148/83 H 08/08/22 03:00 36.8 C 73 18 135/72 08/08/22 00:46 69 08/07/22 22:52 36.7 C 71 18 132/73 Pulse Ox O2 Del Method 08/08/22 10:16 99 Room Air 08/08/22 10:00 97 Room Air 08/08/22 09:45 95 Room Air 08/08/22 09:34 93 Room Air 08/08/22 09:19 94 Room Air 08/08/22 09:04 94 Room Air 08/08/22 08:00 08/08/22 08:21 98 Room Air 08/08/22 07:19 95 Room Air 08/08/22 03:00 94 Room Air 08/08/22 00:46 08/07/22 22:52 94 Room Air Laboratory Results Laboratory Results WBC 9.26 K/ul (4.8-10.8) 08/07/22 06:53 RBC 4.44 M/uL (4.63-6.08) L 08/07/22 06:53 Hgb 11.3 g/dl (14.0-18.0) L 08/08/22 08:02 Hct 33.6 % (40.1-51.0) L 08/08/22 08:02 MCV 83.1 fL (80.0-100.0) 08/07/22 06:53 MCH 27.3 pg (25.0-34.0) 08/07/22 06:53 MCHC 32.8 g/dL (32.0-36.0) 08/07/22 06:53 RDW Std Deviation 40.5 fL (36.4-46.3) 08/07/22 06:53 RDW Coeff of Neha 13.4 % (11.5-14.5) 08/07/22 06:53 Plt Count 277 K/uL (130-400) 08/07/22 06:53 MPV 9.3 fL (9.4-12.4) L 08/07/22 06:53 Immature Gran % (Auto) 0.5 % 08/07/22 06:53 Neut % (Auto) 79.1 % 08/07/22 06:53 Lymph % (Auto) 13.8 % 08/07/22 06:53 Cabell % (Auto) 5.5 % 08/07/22 06:53 Eos % (Auto) 0.6 % 08/07/22 06:53 Baso % (Auto) 0.5 % 08/07/22 06:53 Neut # (Auto) 7.31 K/uL (1.4-6.5) H 08/07/22 06:53 Lymph # (Auto) 1.28 K/uL (1.2-3.4) 08/07/22 06:53 Cabell # (Auto) 0.51 K/uL (0.24-0.82) 08/07/22 06:53 Eos # (Auto) 0.06 K/uL (0-0.50) 08/07/22 06:53 Baso # (Auto) 0.05 K/uL (0-0.2) 08/07/22 06:53 Immature Gran # (Auto) 0.05 K/uL (0.00-0.02) H 08/07/22 06:53 PT 10.8 Seconds (9.0-12.0) 08/07/22 00:20 INR 1.0 (0.9-1.1) 08/07/22 00:20 APTT 27.9 Seconds (21.0-31.0) 08/07/22 00:20 PTT Ratio 1.0 08/07/22 00:20 Sodium 142 mmol/L (136-145) 08/07/22 06:53 Potassium 3.8 mmol/L (3.5-5.1) 08/07/22 06:53 Chloride 106 mmol/L (98-107) 08/07/22 06:53 Carbon Dioxide 31 mmol/L (21-32) 08/07/22 06:53 Anion Gap 5 (3-11) 08/07/22 06:53 BUN 20 mg/dl (6-23) 08/07/22 06:53 Creatinine 0.68 mg/dl (0.6-1.4) 08/07/22 06:53 Est Cr Clr Drug Dosing 119.9 ml/min 08/07/22 06:53 Est GFR ( Amer) 116.2 ml/min 08/07/22 06:53 Est GFR (Non-Af Amer) 100.2 ml/min 08/07/22 06:53 BUN/Creatinine Ratio 29.4 (10-20) H 08/07/22 06:53 Glucose 110 mg/dl (70-99(Fasting)) H 08/07/22 06:53 Calcium 9.3 mg/dl (8.5-10.1) 08/07/22 06:53 Magnesium 1.7 mg/dl (1.7-2.4) 08/07/22 06:53 Total Bilirubin 0.3 mg/dl (0.2-1.0) 08/07/22 00:20 AST 23 U/L (13-39) 08/07/22 00:20 ALT 15 U/L (7-52) 08/07/22 00:20 Alkaline Phosphatase 55 U/L (34-104) 08/07/22 00:20 Troponin I High Sens 10.3 pg/ml (0-20) 08/07/22 00:20 Total Protein 7.3 gm/dl (6.0-8.3) 08/07/22 00:20 Albumin 4.0 gm/dl (3.4-5.0) 08/07/22 00:20 Globulin 3.3 gm/dl (2.5-4.0) 08/07/22 00:20 Albumin/Globulin Ratio 1.2 (0.9-2) 08/07/22 00:20 POC Stool Occult Blood Positive (Negative) A 08/07/22 01:17 SARS-CoV-2, RNA, NAAT NEGATIVE (NEGATIVE) 08/07/22 02:39 Blood Type O Positive 08/07/22 00:39 Antibody Screen NEGATIVE 08/07/22 00:39 Impressions Chest X-Ray 08/07/22 00:34 XR chest 1V portable HISTORY: Shortness of breath. Rectal bleeding. COMPARISON: Chest 09/24/2021. FINDINGS: There are low lung volumes. Mild elevation of the right hemidiaphragm, unchanged. The heart is mildly enlarged. No new focal lung consolidations to suggest a pneumonia. No evidence for pulmonary edema. No pleural effusions. No pneumothorax. IMPRESSION: Mild cardiomegaly. Otherwise, no acute process within the chest. ACT 112: Negative or not required by law. Electronically signed by: Deepak Bean M.D. 08/07/2022 9:17 AM Abdomen/Pelvis CT 08/07/22 01:[address] WITH IV CONTRAST CT DOSE: 719.10 mGy.cm HISTORY: Left lower quadrant pain. diverticular bleeding TECHNIQUE: Multiaxial CT images of the abdomen and pelvis were performed following the use of intravenous contrast. A dose lowering technique was utilized adhering to the principles of ALARA. COMPARISON STUDY: Abdomen and pelvis CT 07/19/2017. FINDINGS: There are few scattered calcified and noncalcified pulmonary nodules seen within the lung bases. The dominant 7 mm nodule within the right lower lobe on image 67 remains stable and is therefore considered to be benign. The additional pulmonary nodules or not included on the prior study. Mild bilateral gynecomastia again noted. Mild mediastinal and bilateral hilar lymphadenopathy is similar to the prior study. Dominant distal right paratracheal lymph node measures 12 mm in short axis diameter. No pneumoperitoneum. No pneumatosis. Mild hepatic steatosis. Cholecystectomy. The spleen, adrenal glands, and pancreas are unremarkable. A few hypodense lesions within the kidneys favor cysts. No hydronephrosis. The main portal vein is patent. Normal caliber abdominal aorta. No retroperitoneal lymphadenopathy. No pelvic lymphadenopathy. The bladder is decompressed but appears unremarkable. There is a small fat-containing left inguinal hernia. No evidence for bowel obstruction. Normal appendix. Colonic diverticulosis. Questionable thickening of the junction of the descending colon/sigmoid colon is likely due to underdistention. An early acute diverticulitis is considered less likely but not entirely excluded. IMPRESSION: 1. Questionable thickening at the junction of the descending colon/sigmoid colon is likely due to underdistention. An early acute diverticulitis is considered less likely but not entirely excluded. 2. Normal appendix. 3. Cholecystectomy. 4. No significant change in the visualized mediastinal and bilateral hilar lymphadenopathy with scattered subcentimeter pulmonary nodules. This is nonspecific but could be due to a chronic process such as sarcoidosis. Clinical correlation recommended. 5. This report was called/faxed to the emergency department following dictation. ACT 112: Negative or not required by law. Electronically signed by: Deepak Bean M.D. 08/07/2022 8:42 AM
[2022-08-08] MEDS: AZELASTINE HCL 0.1% NASAL 200 SPRAYS/27,400 MCG BTL SCH ×2 (10:40→20:37)
[2022-08-08] MEDS: LISINOPRIL/HCTZ 20/25MG 1 TAB PO SCH (10:40)
--- NOTE | 2022-08-08 12:54 | Anesthesiology Progress Note ---
Date of Service August 08, 2022 Anesthesia Post Procedure Vital Signs Vital Signs: Temp Pulse Pulse Pulse Resp BP BP 08/08/22 11:12 36.7 C 62 18 119/79 08/08/22 10:16 61 17 132/78 08/08/22 10:00 36.5 C 62 18 128/73 08/08/22 09:45 36.8 C 74 18 119/67 08/08/22 09:34 67 16 114/60 08/08/22 09:19 70 16 107/47 L 08/08/22 09:04 69 14 91/55 L 08/08/22 08:00 80 08/08/22 08:21 36.8 C 80 18 177/84 H 08/08/22 07:19 37 C 69 18 148/83 H 08/08/22 03:00 36.8 C 73 18 135/72 08/08/22 00:46 69 08/07/22 22:52 36.7 C 71 18 132/73 08/07/22 20:37 36.8 C 72 19 160/80 H 08/07/22 15:13 68 22 150/79 H Pulse Ox O2 Del Method 08/08/22 11:12 95 Room Air 08/08/22 10:16 99 Room Air 08/08/22 10:00 97 Room Air 08/08/22 09:45 95 Room Air 08/08/22 09:34 93 Room Air 08/08/22 09:19 94 Room Air 08/08/22 09:04 94 Room Air 08/08/22 08:00 08/08/22 08:21 98 Room Air 08/08/22 07:19 95 Room Air 08/08/22 03:00 94 Room Air 08/08/22 00:46 08/07/22 22:52 94 Room Air 08/07/22 20:37 97 Room Air 08/07/22 15:13 98 Room Air Transfer of Care Handoff Completed per policy Notes Mental Status: alert / awake / arousable and participated in evaluation Patient Amnestic to Procedure: Yes Nausea / Vomiting: adequately controlled Pain: adequately controlled Airway Patency, RR, SpO2: stable & adequate BP & HR: stable & adequate Hydration State: stable & adequate Anesthetic Complications: no major complications apparent
[2022-08-08 19:55] LABS: Hematocrit (blood only) 34.3 % (40.1-51.0); Hemoglobin 11.1 g/dl (14.0-18.0)
[2022-08-08] MEDS ORDERED: lisinopril 20 MG TAB PO STA (19:58)
[2022-08-09 06:35] LABS: Basophils # (auto) 0.05 K/uL (0-0.2); Basophils % (auto) 0.6 %; Eosinophils # (auto) 0.16 K/uL (0-0.50); Eosinophils % (auto) 1.8 %; Hematocrit (blood only) 32.6 % (40.1-51.0); Hemoglobin 10.6 g/dl (14.0-18.0); Immature Granulocytes # (auto) 0.02 K/uL (0.00-0.02); Immature Granulocytes % (auto) 0.2 %; Lymphocytes # (auto) 1.17 K/uL (1.2-3.4); Mean Corpuscular Hgb Conc 32.5 g/dL (32.0-36.0); Mean Corpuscular Volume 83.2 fL (80.0-100.0); Mean Platelet Volume 9.7 fL (9.4-12.4); Monocytes # (auto) 0.62 K/uL (0.24-0.82); Monocytes % (auto) 6.9 %; Neutrophils # (auto) 7.01 K/uL (1.4-6.5); Neutrophils % (auto) 77.5 %; Platelet Count 234 K/uL (130-400); RDW Coefficient of Variation 13.7 % (11.5-14.5); Red Blood Count 3.92 M/uL (4.63-6.08); White Blood Count 9.03 K/ul (4.8-10.8)
[2022-08-09 07:18] LABS: BUN Creatinine Ratio 16.1 (10-20); Calcium 8.8 mg/dl (8.5-10.1); Creatinine Clr Calc Pharmacy 91.8 ml/min; Est GFR (Non-African American) 90.6 ml/min; Potassium 3.7 mmol/L (3.5-5.1)
[2022-08-09] MEDS: amLODIPine BESYLATE 5 MG TAB PO SCH (07:43)
[2022-08-09] MEDS: FLUTICASONE PROPIONATE NA SPR 16 GM BTL SCH (07:43)
[2022-08-09] MEDS: CETIRIZINE HCL 10 MG TABLET PO SCH (07:43)
[2022-08-09] MEDS: AZELASTINE HCL 0.1% NASAL 200 SPRAYS/27,400 MCG BTL SCH (07:43)
--- NOTE | 2022-08-09 11:07 | Hospitalist Progress Note ---
Date of Service August 09, 2022 Assessment & Plan (1) Lower gastrointestinal hemorrhage: (2) Diverticulosis: (3) Diverticular hemorrhage: Plan Patient is a 67-year-old male who presented with painless rectal bleeding. Acute gastrointestinal bleeding Likely secondary to diverticulosis ? Hemorrhoids contributing as well --CT ABD:Questionable thickening at the junction of the descending colon/sigmoid colon is likely due to underdistention. An early acute diverticu litis is considered less likely but not entirely excluded. Normal appendix. Cholecystectomy. No significant change in the visualized mediastinal and bilateral hilar lymphadenopathy with scattered subcentimeter pulmonary nodules. This is nonspecific but could be due to a chronic process such as sarcoidosis. Clinical correlation recommended. --S/P Colonoscopy:Preparation of the colon was poor. The examined portion of the ileum was normal. Stool in the entire examined colon. External and internal hemorrhoids. No specimens collected. -- Tolerated advance diet No recurrence of bleeding Hemoglobin stable Advised to follow-up with gastroenterology as outpatient Hypertension: Continue amlodipine, lisinopril Resume hydrochlorothiazide DVT Px: SCDs Admission and Anticipated Discharge Date Admission Date: August 07, 2022 Subjective Patient is seen and examined at bedside States doing well today Denies any recurrence of rectal bleeding Also denies any chest pain, shortness breath, dizziness, nausea, abdominal pain Tolerating diet with no issues Plan to be discharged home today Review of Systems Review of Systems: All systems reviewed & are unremarkable except as noted in Subjective Physical Exam Physical Exam: Physical Exam: Vitals signs as noted above General Appearance:Moderately built and nourished, no apparent distress Head: normocephalic, Atraumatic Eyes: normal inspection, EOMI Neck: supple, Trachea midline Respiratory/Chest: Normal breath sounds, CTA, No accessory muscle use Cardiovascular: S1, S2, No murmur Abdomen/GI:Soft, Non tender, Bowel sounds present Extremities/Musculoskeletal:normal inspection, no edema Neurologic/Psych:AAOX3, grossly no focal neurological deficits Skin: normal color, warm Results & Data Results & Data ([facility]) Vital Signs (Past 12 Hours) Vital Signs Temp Pulse Pulse Pulse Resp BP Pulse Ox 08/09/22 10:26 36.8 C 68 20 145/76 H 98 08/09/22 08:00 71 08/09/22 07:16 36.8 C 68 18 129/78 69 L 08/09/22 03:26 36.3 C L 71 18 130/65 95 08/08/22 23:08 36.9 C 75 18 143/68 H 96 O2 Del Method 08/09/22 10:26 Room Air 08/09/22 08:00 08/09/22 07:16 Room Air 08/09/22 03:26 Room Air 08/08/22 23:08 Room Air Laboratory Results Short CBC 08/08/22 08/09/22 Range/Units 19:03 05:56 WBC 9.03 (4.8-10.8) K/ul Hgb 11.1 L 10.6 L (14.0-18.0) g/dl Hct 34.3 L 32.6 L (40.1-51.0) % Plt Count 234 (130-400) K/uL BMP 08/09/22 05:56 Sodium 141 Potassium 3.7 Chloride 106 Carbon Dioxide 31 BUN 14 Creatinine 0.87 Glucose 98 Calcium 8.8
--- NOTE | 2022-08-09 14:21 | Discharge Summary ---
Date of Service August 09, 2022 Admission HPI Per Admitting Provider CHIEF COMPLAINT: Rectal bleed. HISTORY OF PRESENT ILLNESS: A 67-year-old male with past medical history significant for hyperlipidemia, prediabetes, chronic sinusitis, allergic rhinitis, pulmonary venous hypertension, history of diverticulosis of colon, history of irritable bowel syndrome, history of COVID-19, history of toxic effect of venom, status post left total knee replacement, presents with rectal bleed. The patient states since yesterday evening 6:30 p.m., he started to have several episodes of bloody bowel movements. Denies any abdominal pain. He says he had similar bleed 5 years ago. His gets colonoscopy every 5 years.His colonoscopy in 2017 showed diverticulosis. Denies any chest pain, no shortness of breath, no nausea, no vomiting. Normal bladder movements. No hematuria, no headache, no blurred visions, no earache, no runny nose, no sore throat. He has occasional cough. Appetite is okay. No recent weight gain, weight loss. Ambulates and climbs steps okay. Currently, resting comfortably and hemodynamically stable.Patient says he takes Aleve for his knee pain Admission Exam Per Admitting Provider PHYSICAL EXAMINATION: GENERAL: The patient is of moderate build, not in acute distress. VITAL SIGNS: Temperature 37, pulse 65, respiratory rate 18, blood pressure 154/79, oxygen 96% on room air. HEENT: Pupils equal, round and reactive to light. Oral mucosa moist. NECK: No JVD or neck masses. CARDIOVASCULAR: S1 and S2 heard. Regular rate and rhythm. No murmur, no gallop. RESPIRATORY SYSTEM: Normal AP diameter. No accessory muscle use. No wheezing, no crackles. ABDOMEN: Soft, bowel sounds present, nontender, no distention. CENTRAL NERVOUS SYSTEM: Cranial nerves II-XII grossly intact, nonfocal. EXTREMITIES: No edema, no erythema. Principal Diagnosis Lower gastrointestinal hemorrhage Diverticulosis External and internal hemorrhoids Discharge Data Allergies Allergy/AdvReac Type Severity Reaction Status Date / Time bee venom protein (honey bee) Allergy Severe Diffuse Verified 08/08/22 08:20 swelling ibuprofen Allergy Intermediate Hives Verified 08/08/22 08:20 Consultations 08/07/22 02:27 ED Decision to Admit Stat 08/07/22 08:00 Consult Gastroenterology Routine Procedures Performed Operation Date: 08/08/22 16:00 Actual Procedures p Colonoscopy - Frandy Cuba MD Laboratory Results WBC 9.03 K/ul (4.8-10.8) 08/09/22 05:56 RBC 3.92 M/uL (4.63-6.08) L 08/09/22 05:56 Hgb 10.6 g/dl (14.0-18.0) L 08/09/22 05:56 Hct 32.6 % (40.1-51.0) L 08/09/22 05:56 MCV 83.2 fL (80.0-100.0) 08/09/22 05:56 MCH 27.0 pg (25.0-34.0) 08/09/22 05:56 MCHC 32.5 g/dL (32.0-36.0) 08/09/22 05:56 RDW Std Deviation 41.0 fL (36.4-46.3) 08/09/22 05:56 RDW Coeff of Neha 13.7 % (11.5-14.5) 08/09/22 05:56 Plt Count 234 K/uL (130-400) 08/09/22 05:56 MPV 9.7 fL (9.4-12.4) 08/09/22 05:56 Immature Gran % (Auto) 0.2 % 08/09/22 05:56 Neut % (Auto) 77.5 % 08/09/22 05:56 Lymph % (Auto) 13.0 % 08/09/22 05:56 [place] % (Auto) 6.9 % 08/09/22 05:56 Eos % (Auto) 1.8 % 08/09/22 05:56 Baso % (Auto) 0.6 % 08/09/22 05:56 Neut # (Auto) 7.01 K/uL (1.4-6.5) H 08/09/22 05:56 Lymph # (Auto) 1.17 K/uL (1.2-3.4) L 08/09/22 05:56 [place] # (Auto) 0.62 K/uL (0.24-0.82) 08/09/22 05:56 Eos # (Auto) 0.16 K/uL (0-0.50) 08/09/22 05:56 Baso # (Auto) 0.05 K/uL (0-0.2) 08/09/22 05:56 Immature Gran # (Auto) 0.02 K/uL (0.00-0.02) 08/09/22 05:56 PT 10.8 Seconds (9.0-12.0) 08/07/22 00:20 INR 1.0 (0.9-1.1) 08/07/22 00:20 APTT 27.9 Seconds (21.0-31.0) 08/07/22 00:20 PTT Ratio 1.0 08/07/22 00:20 Sodium 141 mmol/L (136-145) 08/09/22 05:56 Potassium 3.7 mmol/L (3.5-5.1) 08/09/22 05:56 Chloride 106 mmol/L (98-107) 08/09/22 05:56 Carbon Dioxide 31 mmol/L (21-32) 08/09/22 05:56 Anion Gap 4 (3-11) 08/09/22 05:56 BUN 14 mg/dl (6-23) 08/09/22 05:56 Creatinine 0.87 mg/dl (0.6-1.4) 08/09/22 05:56 Est Cr Clr Drug Dosing 91.8 ml/min 08/09/22 05:56 Est GFR ( Amer) 105.0 ml/min 08/09/22 05:56 Est GFR (Non-Af Amer) 90.6 ml/min 08/09/22 05:56 BUN/Creatinine Ratio 16.1 (10-20) 08/09/22 05:56 Glucose 98 mg/dl (70-99(Fasting)) 08/09/22 05:56 Calcium 8.8 mg/dl (8.5-10.1) 08/09/22 05:56 Magnesium 1.7 mg/dl (1.7-2.4) 08/07/22 06:53 Total Bilirubin 0.3 mg/dl (0.2-1.0) 08/07/22 00:20 AST 23 U/L (13-39) 08/07/22 00:20 ALT 15 U/L (7-52) 08/07/22 00:20 Alkaline Phosphatase 55 U/L (34-104) 08/07/22 00:20 Troponin I High Sens 10.3 pg/ml (0-20) 08/07/22 00:20 Total Protein 7.3 gm/dl (6.0-8.3) 08/07/22 00:20 Albumin 4.0 gm/dl (3.4-5.0) 08/07/22 00:20 Globulin 3.3 gm/dl (2.5-4.0) 08/07/22 00:20 Albumin/Globulin Ratio 1.2 (0.9-2) 08/07/22 00:20 POC Stool Occult Blood Positive (Negative) A 08/07/22 01:17 SARS-CoV-2, RNA, NAAT NEGATIVE (NEGATIVE) 08/07/22 02:39 Blood Type O Positive 08/07/22 00:39 Antibody Screen NEGATIVE 08/07/22 00:39 Impressions Chest X-Ray 08/07/22 00:34 XR chest 1V portable HISTORY: Shortness of breath. Rectal bleeding. COMPARISON: Chest 09/24/2021. FINDINGS: There are low lung volumes. Mild elevation of the right hemidiaphragm, unchanged. The heart is mildly enlarged. No new focal lung consolidations to suggest a pneumonia. No evidence for pulmonary edema. No pleural effusions. No pneumothorax. IMPRESSION: Mild cardiomegaly. Otherwise, no acute process within the chest. ACT 112: Negative or not required by law. Electronically signed by: Deepak Bean M.D. 08/07/2022 9:17 AM Abdomen/Pelvis CT 08/07/22 01:[address] WITH IV CONTRAST CT DOSE: 719.10 mGy.cm HISTORY: Left lower quadrant pain. diverticular bleeding TECHNIQUE: Multiaxial CT images of the abdomen and pelvis were performed following the use of intravenous contrast. A dose lowering technique was utilized adhering to the principles of ALARA. COMPARISON STUDY: Abdomen and pelvis CT 07/19/2017. FINDINGS: There are few scattered calcified and noncalcified pulmonary nodules seen within the lung bases. The dominant 7 mm nodule within the right lower lobe on image 67 remains stable and is therefore considered to be benign. The additional pulmonary nodules or not included on the prior study. Mild bilateral gynecomastia again noted. Mild mediastinal and bilateral hilar lymphadenopathy is similar to the prior study. Dominant distal right paratracheal lymph node measures 12 mm in short axis diameter. No pneumoperitoneum. No pneumatosis. Mild hepatic steatosis. Cholecystectomy. The spleen, adrenal glands, and pancreas are unremarkable. A few hypodense lesions within the kidneys favor cysts. No hydronephrosis. The main portal vein is patent. Normal caliber abdominal aorta. No retroperitoneal lymphadenopathy. No pelvic lymphadenopathy. The bladder is decompressed but appears unremarkable. There is a small fat-containing left inguinal hernia. No evidence for bowel obstruction. Normal appendix. Colonic diverticulosis. Questionable thickening of the junction of the descending col on/sigmoid colon is likely due to underdistention. An early acute diverticulitis is considered less likely but not entirely excluded. IMPRESSION: 1. Questionable thickening at the junction of the descending colon/sigmoid colon is likely due to underdistention. An early acute diverticulitis is considered less likely but not entirely excluded. 2. Normal appendix. 3. Cholecystectomy. 4. No significant change in the visualized mediastinal and bilateral hilar lymphadenopathy with scattered subcentimeter pulmonary nodules. This is nonspecific but could be due to a chronic process such as sarcoidosis. Clinical correlation recommended. 5. This report was called/faxed to the emergency department following dictation. ACT 112: Negative or not required by law. Electronically signed by: Deepak Bean M.D. 08/07/2022 8:42 AM Ordered Studies 08/07/22 01:09 CT Abd and Pelvis [CT abd pelvis IV con only] Stat Hospital Course (1) Lower gastrointestinal hemorrhage: (2) Diverticulosis: (3) Diverticular hemorrhage: Plan Patient is a 67-year-old male who presented with painless rectal bleeding. Acute gastrointestinal bleeding Likely secondary to diverticulosis ? Hemorrhoids contributing as well --CT ABD:Questionable thickening at the junction of the descending colon/sigmoid colon is likely due to underdistention. An early acute diverticulitis is considered less likely but not entirely excluded. Normal appendix. Cholecystectomy. No significant change in the visualized mediastinal and bilateral hilar lymphadenopathy with scattered subcentimeter pulmonary nodules. This is nonspecific but could be due to a chronic process such as sarcoidosis. Clinical correlation recommended. --S/P Colonoscopy:Preparation of the colon was poor. The examined portion of the ileum was normal. Stool in the entire examined colon. External and internal hemorrhoids. No specimens collected. -- Tolerated advance diet No recurrence of bleeding Hemoglobin stable Advised to follow-up with gastroenterology as outpatient Hypertension: Continue amlodipine, lisinopril Resume hydrochlorothiazide DVT Px: SCDs Total Time Total Time Spent Total Time Spent (In Minutes): 48 minutes Discharge Plan Discharge Items Patient Disposition: Home - Self-Care Reason For Visit: RECTAL BLEED Discharge Diagnosis: Lower gastrointestinal hemorrhage Diverticulosis External and internal hemorrhoids Activity: Per Instructions section Exercise/Sports: Gradually increase as tolerated Non-emergency contact: Primary Care Provider and Ball Sorter Call non-emergency contact if: you have any medication questions, your symptoms worsen, your pain is concerning for you and you have a fever Follow-up/Referrals: Derian Guevara MD [Primary Care Provider] - 08/16/22 11:20 am (Date & Time 08/16/2022 11:20 AM Provider Erin Majano MD Department Family Medicine [facility] ) Diet: Heart Healthy Addtl Attending Provider Instructions: Follow-up with your primary care physician in 1 week Follow-up with your rough rounder Dr.Brandon Cuba in 3-4 weeks Seek immediate medical attention if your symptoms reoccur or worsen Please take all medications as instructed on discharge list below. Please call if you have any questions or problems. You can reach a [facility] hospitalist on duty at [facility] 24 hours a day by calling [phone] Pending Studies at Discharge: No Stand-Alone Forms: My [facility], Smoking Cessation Medications and DC Order Prescriptions: Continued (DME) Malcom Salazar [facility] [place] See Rx Instructions .MEDSUPPLY Qty: 1 0RF Rx Instructions: As directed loperamide [Imodium A-D] 2 mg Capsule 2 mg PO Q3H PRN (Reason: Diarrhea) cetirizine 10 mg Tablet 10 mg PO QAM amlodipine 5 mg Tablet 5 mg PO QAM lisinopril-hydrochlorothiazide 20-25 mg Tablet 1 tab PO QAM azelastine 137 mcg (0.1 %) Aerosol,[place] 1 spray INTRANASAL Q12H fluticasone propionate 50 mcg/actuation [place],Suspension 2 spray INTRANASAL DAILY Discharge Orders: Discharge Order (Routine); Ordered 08/09/22 Ordered By: oY Corey/Other Patient Handouts: GI Bleeding Causes and Tests, Rectal Bleeding Tx, Understanding Rectal Bleeding, ED Lower GI Bleeding (Stable) Admission Data Admit Date/Time: 08/07/22 03:08 Attending Provider: Yo Ashton Admit Provider: Everette Richard Primary Care Provider: Derian Geuvara Other Providers: Everette Richard ; Obi Sanchez ; Dawson Fernandez ; Carolina Villa ; Hanna Pruett ; Brenda Shields ; Tanya Harrison ; Ash Ann ; Carmen Eduardo ; Frandy Cuba ; Gretchen Corbin ; Yves Mercado ; Louie Sexton ; Angela Gold ; Seema Chavez ; Eladia Gonzalez ; Stefanie Henrandez ; Connie Hinton ; Damian Templeton dd ; Jose Soto ; Stacia Ellis ; Livan Dorman Jr Other Interventions: Discharge Summary Assessment (RN) Last Done: 08/09/22 11:13
== END 2022-08-09 11:50 | disposition home or self-care (01) | DRG 379 ==
LOC: ED 00:06 → SUATTDRO 03:08 → EDINP 03:08 → 2E 05:02